=== PATIENT | female | born 1955 | race Caucasian/White ===

== ENCOUNTER 2020-12-24 14:46 | Emergency (ER) | payer MEDICARE, OTHER, SELFPAY ==
--- NOTE | ~2020-12-24 | CT_ITS ---
EXAMINATION: CT abdomen pelvis w con EXAM DATE: 12/24/2020 19:11 INDICATION: Abdominal pain, possible Crohn's flareup. Nausea vomiting and diarrhea. TECHNIQUE: Spiral CT of the abdomen and pelvis was performed following intravenous injection of 100 m L Omnipaque 350. Axial, coronal and sagittal images of the abdomen and pelvis were reviewed. The do se-length product (DLP) for this examination was 586.76 mGy-cm. The exposure was tailored according to patient size (auto mA exposure control), and iterative reconstruction (ASIR) was used as additiona l dose reduction technique. There is no prior study for comparison. FINDINGS: The liver, spleen, adrenal glands and pancreas are unremarkable. Gallbladder is unremarkab le. No biliary obstruction. Portal and splenic veins are patent. Kidneys enhance symmetrically. T here is no hydronephrosis. The uterus is anteverted and morphologically normal. The bladder is un remarkable. There is no retroperitoneal or pelvic lymphadenopathy. There are no findings to suggest appendicitis. There is mild to moderate sigmoid colonic diverticulos is. There is no adjacent inflammatory change to suggest diverticulitis. There is small sliding gastr oesophageal hiatal hernia. There is expected amount of colonic stool. No free intraperitoneal gas. The heart is normal in size. There are no pericardial or pleural effusions. The lung bases are u nremarkable. There are no osteoblastic or osteolytic lesions identified. IMPRESSION: 1. No acute intra-abdominal findings. 2. Sigmoid diverticulosis. 3. Small hiatal hernia. Reviewed, dictated and finalized at location A.
--- NOTE | ~2020-12-24 | CT_ITS ---
EXAMINATION: CT brain wo con EXAM DATE: 12/24/2020 19:11 INDICATION: Dizziness. TECHNIQUE: Spiral CT of the head was performed without contrast. Axial, coronal and sagittal images were reviewed. The dose-length product (DLP) for this examination was 586.76 mGy-cm. The exposure w as tailored according to patient size, and iterative reconstruction (ASIR) was used as additional dos e reduction technique. There is no prior study for comparison. FINDINGS: There is no acute intraparenchymal hemorrhage. No evidence of intraparenchymal brain mass lesion. No evidence of acute infarction. Please note that initial head CT has limited sensitivity f or small or acute infarctions. There is mild periventricular and subcortical hypodensity, nonspecific but probably related to small vessel ischemic disease. There is mild prominence of the sulci and v entricles related to cerebral atrophy. There is intracranial carotid arteriosclerosis. There are n o extra-axial collections. There is no mass effect or midline shift. The orbits are unremarkable. Soft tissue is unremarkable. The visualized sinuses and mastoid air cells are well aerated. IMPRESSION: 1. No acute intracranial findings. 2. Chronic age related findings. Reviewed, dictated and finalized at location A.
[2020-12-24 16:03] VITALS: BP 158/75; PULSE 82; RESP 16; TEMP 36.1; O2SAT 97
[2020-12-24 16:25] LABS: Basophils Absolute Auto 0.1 K/mm3 (0.0-0.1); Basophils Percent Auto 0.7 % (0.2-1.2); Eosinophils Absolute Auto 0.3 K/mm3 (0-0.3); Eosinophils Percent Auto 2.9 % (0-4.4); Hematocrit 41.9 % (37.0-47.0); Hemoglobin 14.3 g/dL (12.0-15.0); Immature Granulocyte Absolute 0.03 K/mm3 (0.00-0.031); Immature Granulocyte Percent A 0.4 % (0-0.5); Lymphocytes Absolute Auto 1.54 K/mm3 (0.9-3.2); Lymphocytes Percent Auto 18.1 % (18.3-44.2); Mean Corpuscular HGB Conc 34.1 g/dl (32-36); Mean Corpuscular Hemoglobin 27.1 pg (26-34); Mean Corpuscular Volume 79.5 fl (80-100); Mean Platelet Volume 9.7 fl (7.4-10.4); Monocytes Absolute Auto 1.3 K/mm3 (0.1-0.6); Neutrophils Absolute Auto 5.4 K/mm3 (1.3-6.7); Neutrophils Percent Auto 62.9 % (45.5-73.1); Platelet Count Result 334 k/mm3 (150-375); Red Blood Count 5.27 M/mm3 (4.2-5.4); White Blood Count 8.5 K/mm3 (4.5-10.0)
[2020-12-24 16:36] LABS: Alanine Aminotransferase 24 U/L (4-35); Albumin Level 4.6 g/dL (3.5-5.1); Alkaline Phosphatase 103 U/L (38-126); Anion Gap 14 mmol/L (8-16); Aspartate Amino Transferase 38 U/L (14-36); Bilirubin,Total 0.7 mg/dL (0.2-1.3); Blood Urea Nitrogen 14 mg/dL (7-17); Calcium 9.7 mg/dL (8.4-10.2); Carbon Dioxide 20 mmol/L (22-30); Chloride 95 mmol/L (98-107); Estimated CRCL calculation 38 ml/min; Estimated Glomerular Filt Rate 45; Glucose 151 mg/dL (65-110); Lipase 186 U/L (23-300); Potassium 3.7 mmol/L (3.4-5.0); Sodium 129 mmol/L (137-145)
[2020-12-24 17:53] VITALS: BP 136/94; PULSE 69; RESP 15; O2SAT 98
[2020-12-24 17:56] VITALS: BP 136/94; PULSE 68; RESP 15; O2SAT 97
--- NOTE | 2020-12-24 18:23 | ED.GENADULT ---
HPI - General Adult General Chief complaint: Nausea/Vomiting/Diarrhea Stated complaint: vomiting and diarrhea x 5 days Time Seen by Provider: 12/24/20 18:09 Source: patient and RN notes reviewed Mode of arrival: ambulatory Limitations: no limitations History of Present Illness HPI narrative: Patient is a 65-year-old female who presents to emergency department for evaluation of dizziness for the last 5 days started with the posterior headache no she has since had continued dizziness worse with moving her head from left to right. Patient states she also began to have nausea vomiting and diarrhea during this.. Patient notes history of Crohn's. Patient denies any rectal bleeding melena hematemesis fever. Patient on arrival to emergency department in no distress. Patient took Imodium today which has helped with her loose stools Related Data Home Medications Medication Instructions Recorded Confirmed fluoxetine 40 mg PO DAILY 06/18/19 06/18/19 levothyroxine 50 mcg PO DAILY 06/18/19 06/18/19 omeprazole 40 mg PO DAILY 06/18/19 06/18/19 Allergies Allergy/AdvReac Type Severity Reaction Status Date / Time codeine Allergy Severe Other Verified 12/24/20 17:50 morphine Allergy Severe Other Verified 12/24/20 17:50 Review of Systems Review of Systems: All systems reviewed & are unremarkable except as noted in HPI and below PMFSH Past Medical History Medical History Anxiety Depression Diabetes type 2, controlled GERD (gastroesophageal reflux disease) Hypothyroidism SLE (systemic lupus erythematosus related syndrome) Surgical History Surgical History History of appendectomy History of Exam Narrative: Exam Narrative: GENERAL: Well-appearing, well-nourished, and in no acute distress. HEAD: Normocephalic, atraumatic. EYES: PERRLA and EOMI. ENT: Nares clear, no rhinorrhea or epistaxis. Mucous membranes moist. Bilateral TMs nonbulging nonerythematous CHEST: Clear to auscultation. No respiratory distress. No wheezes rales or rhonchi HEART: Regular rate and rhythm. No murmur heard. Normal peripheral pulses. ABDOMEN: Soft, nontender, nondistended EXTREMITIES: Normal range of motion. No edema. SKIN: Warm, dry, no rash. NEURO: No focal deficits. Alert and oriented x3. Cranial nerves II through XII grossly intact PSYCH: Normal mood and affect. Course Course Emergency Course: Patient in the room in no distress aware of case findings treatment plan and diagnosis agreeing to follow-up as instructed with primary care no high risk changes in evaluation tolerating p.o. intake was given IV antibiotic will be treated for urinary tract infection patient agreeing with this plan hemodynamically stable ABCs and vital signs intact and stable hydrated and given IV antibiotics prior to discharge Vital Signs Vital signs: Vital Signs Temperature 96.9 F L 12/24/20 16:03 Pulse Rate 82 12/24/20 16:03 Respiratory Rate 16 12/24/20 16:03 Blood Pressure 158/75 H 12/24/20 16:03 Pulse Oximetry 97 12/24/20 16:03 Temperature 96.9 F L 12/24/20 16:03 Pulse Rate 64 12/24/20 19:23 Respiratory Rate 16 12/24/20 19:23 Blood Pressure 136/100 H 12/24/20 19:23 Pulse Oximetry 100 12/24/20 19:23 Medical Decision Making MDM Narrative Medical decision making narrative: Patient in the room no distress patient with resolved nausea and vomiting will be discharged at this time has been hydrated and is felt appropriate for discharge home Vital Signs Vital Signs: Vital Signs Temperature 96.9 F L 12/24/20 16:03 Pulse Rate 82 12/24/20 16:03 Respiratory Rate 16 12/24/20 16:03 Blood Pressure 158/75 H 12/24/20 16:03 Pulse Oximetry 97 12/24/20 16:03 Temperature 96.9 F L 12/24/20 16:03 Pulse Rate 64 12/24/20 19:23 Respiratory Rate 16 12/24/20 19:23 Blood Pressure 136/100 H 12/24/20 19:23
[2020-12-24] MEDS: SODIUM CHLORIDE 0.9% IV 1,000 ML 999 ML IV CONT (18:41)
[2020-12-24] MEDS: ONDANSETRON INJ 4 MG/2 ML VIAL IV PUSH (18:41)
[2020-12-24] MEDS: FAMOTIDINE 20 MG/2 ML VIAL IV PUSH (18:41)
[2020-12-24 19:03] LABS: Add Urine Microscopic? YES; Appearance Urine Cloudy (Clear); Bacteria Urine Trace /hpf; Bilirubin Urine Negative (Negative); Blood Urine Negative (Negative); Color Urine Amber (Yellow); Glucose Urine UA Negative (Negative); Hyaline Casts Urine 15-19 /lpf; Ketones Urine Negative (Negative); Leukocyte Esterase Ur 3+ LEU/UL (Negative); Mucus Urine Few /lpf; Nitrate Urine Positive (Negative); Protein Urine 2+ mg/dL (Negative); Specific Grav Ur 1.023 (1.001-1.035); Squamous Epithelial Cell Urine Occasional /hpf (Few); Urobilinogen Urine Negative mg/dL (<2.0); WBC Urine >75 /hpf
--- NOTE | 2020-12-24 19:05 | PC.NURSE ---
Pt report to [facility] at this time, pt in ct, all questions answered, she has assumed pt care.
[2020-12-24 19:23] VITALS: BP 136/100; PULSE 64; RESP 16; O2SAT 100
--- NOTE | 2020-12-24 19:29 | PC.NURSE ---
updated pt and family member. antibiotics started. no other requests at this time. pt is resting w/ call light in reach.
[2020-12-24 20:20] VITALS: BP 151/88; PULSE 63; RESP 15; O2SAT 98
== END 2020-12-24 20:20 | disposition home or self-care (01) ==
PROVIDERS: Emergency Medicine; Emergency Provider Emergency Medicine; PCP Physician Assistant
DX: N39.0 Urinary tract infection, site not specified (principal); R10.9 Unspecified abdominal pain; K57.30 Diverticulosis of large intestine without perforation or abscess without bleeding; K44.9 Diaphragmatic hernia without obstruction or gangrene; F41.9 Anxiety disorder, unspecified; F32.9 Major depressive disorder, single episode, unspecified; E11.9 Type 2 diabetes mellitus without complications; K21.9 Gastro-esophageal reflux disease without esophagitis; E03.9 Hypothyroidism, unspecified; M32.9 Systemic lupus erythematosus, unspecified
CPT/HCPCS: 36415; 70450; 74177; 80053; 81001; 83690; 85025; 87077; 87086; 87088; 87186; 96365; 96367; 96375; 99284; J0131; J0696; J2405; J7030; Q9967

== ENCOUNTER 2024-02-29 09:04 | Inpatient (IN) | payer MEDICARE, OTHER, SELFPAY ==
[2024-02-29] VITALS (20 sets, daily range): BP systolic 110–193; BP diastolic 64–110; PULSE 61–105; RESP 13–21; TEMP 36.4–36.9; O2SAT 97–100; BMI 26.6
--- NOTE | 2024-02-29 | ECHO_ITS ---
Patient Info Name: Sharmila Vences Age: 68 years : 1955 Gender: Female Ht: 66 in Wt: 165 lbs BSA: 1.88 m2 HR: 81 bpm BP: 178 / 87 mmHg Heart Rhythm: Sinus Rhythm Technical Quality: Fair Exam Date: 02/29/2024 2:36 PM Exam Location: Echo Lab Patient Status: Inpatient Admit Date: 02/29/2024 Staff Ordering Physician: Allan Hall MD (brandon/tejal) Tung Nut Grower: Melissa Luz RDCS Attending Provider: Allan Hall MD (brandon/tejal) Referring Physician: Rafael GLASS; Exam Type: CA echo dop color flow w con Study Info Indications I21.3 - ST elevation (STEMI) myocardial infarction of unspecified site Complete two-dimensional, color flow and Doppler transthoracic echocardiogram is performed with contrast to opacify the left ventricle and to improve the deliniation of the left ventricle endocardial borders. Contrast/Agitated Saline Contrast/Ag. Saline: Definity Amount: 2.00 ml IV Access Condition: patent with no signs of infiltration Summary 1. Left ventricular chamber dimension is mildly enlarged. 2. Left ventricular systolic function is moderately reduced, estimated at 30-35%. 3. There is mildly increased left ventricular wall thickness. 4. The left ventricular diastolic function is grade I diastolic dysfunction. 5. Right ventricular systolic function is normal. 6. Left atrial chamber dimension is moderately enlarged. 7. There is mild aortic valve regurgitation. 8. There is mild mitral valve regurgitation. 9. There is mild tricuspid valve regurgitation. Left Ventricle Left ventricular chamber dimension is mildly enlarged. Left ventricular systolic function is moderately reduced, estimated at 30-35%. There is mildly increased left ventricular wall thickness. The left ventricular diastolic function is grade I diastolic dysfunction. Right Ventricle Right ventricular chamber dimension is normal. Right ventricular systolic function is normal. Left Atria Left atrial chamber dimension is moderately enlarged. Right Atria Right atrial chamber dimension is normal. Atrial Septum Intact interatrial septum visualized by color flow imaging. Aortic Valve The aortic valve is not well visualized. There is no aortic valve stenosis. There is mild aortic valve regurgitation. There is mild aortic valve calcification. Pulmonic Valve The pulmonic valve is not well visualized. There is trace pulmonic regurgitation. Mitral Valve There is mild mitral valve regurgitation. Tricuspid Valve There is mild tricuspid valve regurgitation. Pericardium/Pleural There is no pericardial effusion. Inferior Vena Cava Normal inferior vena cava with >50% collapse upon inspiration consistent with normal right atrial pressure, 3 mmHg. Aorta The aortic root size at the sinus of Valsalva is normal. Left Ventricular Outflow Tract Name Value Normal LVOT 2D LVOT Diameter 1.94 cm LVOT Doppler LVOT Peak Gradient 2 mmHg LVOT Mean Gradient 1 mmHg LVOT VTI 15.12 cm LVOT VTI/AV VTI Ratio 0.76 LVOT Stroke Volume 44.85 ml LVOT CO 3.19 l/min LVOT CI 1.69 L/min/m2 Pulmonic Valve Name Value Normal PV Doppler PV Peak Gradient 2 mmHg PV Regurgitation Doppler AL Peak End Diastolic Velocity 152.13 cm/s Mitral Valve Name Value Normal MV Doppler MV Decel Bland 303.95 cm/s2 MV PHT 0 s MV Area (PHT) 4.02 cm2 4.00-5.00 MV Diastolic Function MV E Peak Velocity 57.38 cm/s MV A Peak Velocity 88.69 cm/s MV E/A 0.65 MV Decel Time 0 s Tricuspid Valve Name Value Normal TV Regurgitation Doppler TR Peak Velocity 280.73 cm/s TR Peak Gradient 32 mmHg Estimated PAP/RSVP RA Pressure 3 mmHg <=5 PA Systolic Pressure 35 mmHg <36 RV Systolic Pressure 35 mmHg <36 Aorta Name Value Normal Ascending Aorta Ao Root Diameter (MM) 2.59 cm Ao Root Diam Index (MM) 1.38 cm/m2 Aortic Valve Name Value Normal AV Doppler AV Peak Velocity 111.70 cm/s AV Peak Gradient 5 mmHg AV Mean Gradient 3 mmHg AV VTI 19.84 cm AV Area (Cont Eq VTI) 2.26 cm2 >=3.00 AV Area (Cont Eq Dave) 2.00 cm2 AV Regurgitation 2D LVOT Area 2.97 cm2 AV Regurgitation Doppler AR Decel Time 3 s AR Decel Bland 110.01 cm/s2 AR PHT 1 s Ventricles Name Value Normal LV Dimensions 2D/MM IVS Diastolic Thickness (2D) 1.12 cm 0.60-1.00 IVS Diastole Thickness (MM) 1.30 cm 0.60-0.90 LVID Diastole (2D) 5.18 cm 3.80-5.20 LVID Diastole (MM) 6.17 cm 3.80-5.20 LVIW Diastolic Thickness (2D) 1.25 cm 0.60-0.90 LVIW Diastolic Thickness (MM) 1.30 cm 0.60-0.90 LVID Systole (2D) 4.41 cm 2.20-3.50 LVID Systole (MM) 4.64 cm 2.20-3.50 LVOT Diameter 1.94 cm LV Mass (2D Cubed) 243.58 g 67.00-162.00 LV Mass Index (2D Cubed) 0.01 g/cm2 0.00-0.01 Relative Wall Thickness (2D) 0.48 LV Mass (MM Cubed) 365.28 g 67.00-162.00 LV Mass Index (MM Cubed) 0.02 g/cm2 0.00-0.01 Relative Wall Thickness (MM) 0.42 LV Fractional Shortening/Ejection Fraction 2D/MM LV Fractional Shortening (2D) 15 % 27-45 LV Fractional Shortening (MM) 25 % 27-45 LV EF (MM Teicholz) 48 % 54-74 LV EF (2D Teicholz) 31 % 54-74 LV Diastolic Volume (4C MOD) 163.13 ml LV EF (4C MOD) 31 % LV Diastolic Volume (2C MOD) 140.79 ml LV EF (2C MOD) 41 % LV Diastolic Volume (BP MOD) 153.95 ml 46.00-106.00 LV Diastolic Volume Index (BP MOD) 0.08 l/m2 0.03-0.06 LV Systolic Volume (BP MOD) 100.78 ml 14.00-42.00 LV Systolic Volume Index (BP MOD) 0.05 l/m2 0.01-0.02 LV EF (BP MOD) 35 % 54-74 LV Diastolic Length (4C) 9.13 cm LV Systolic Length (4C) 8.19 cm LV Stroke Volume (4C MOD) 49.76 ml Atria Name Value Normal LA Dimensions LA Dimension (MM) 4.41 cm 2.70-3.80 LA Volume (4C A-L) 55.88 ml LA Volume (BP A-L) 59.72 ml RA Dimensions RA Area (4C) 11.19 cm2 <=18.00 Report Signatures
--- NOTE | ~2024-02-29 | US_ITS ---
EXAMINATION: US renal BI DATE: 03/01/2024 13:29 INDICATION: Acute renal insufficiency TECHNIQUE: Multiple ultrasound grayscale images of the kidneys were obtained. COMPARISON: None. FINDINGS: The right kidney measures 8.0 x 4.6 x 4.6 cm. The left kidney measures 8.7 x 5.1 x 3.8 cm. The kidney s demonstrate normal echogenicity. There is no hydronephrosis in either kidney. No stones identified . The bladder is nonvisualized, likely decompressed. IMPRESSION: 1. Normal kidneys without hydronephrosis. Reviewed, dictated and finalized at location A.
--- NOTE | ~2024-02-29 | XR_ITS ---
EXAMINATION: XR chest 1V portable DATE: 02/29/2024 11:43 INDICATION: Shortness of breath TECHNIQUE: frontal view of the chest was obtained. COMPARISON: None FINDINGS: There is diffuse increased initial pattern throughout both lungs including peripheral Tj B-lines consistent with mild pulmonary edema. No pleural effusion or pneumothorax. The cardiomediastinal silh ouette is normal. IMPRESSION: 1. Diffuse mild increased initial pattern consistent with mild pulmonary edema. Reviewed, dictated and finalized at location A.
--- NOTE | 2024-02-29 09:11 | ECG_ITS ---
Test Date: 2024-02-29 09:10:43 Measurements Intervals [place] Rate: 94 P: 63 SC: 216 QRS: 30 QRSD: 149 T: 84 QT: 377 QTc: 472 Interpretive Statements SINUS RHYTHM WITH FIRST DEGREE AV BLOCK POSSIBLE LEFT ATRIAL ENLARGEMENT INTRAVENTRICULAR CONDUCTION DELAY INFERIOR ST ELEVATION MYOCARDIAL INFARCT- ACUTE WITH RECIPROCAL ST DEPRESSION IN HIGH LATERAL LEADS ABNORMAL ECG No previous ECG available for comparison Electronically Signed On 02-29-2024 09:16:45 CDT by Gonzalo Plascencia D.O.
--- NOTE | 2024-02-29 09:20 | ED.GENADULT ---
HPI - General Adult General Chief complaint: Chest Pain Stated complaint: Chest pain/SOB Time Seen by Provider: 02/29/24 09:18 History of Present Illness HPI narrative: This is 68-year-old female presenting ED with chief complaint of chest pain. She has been having intermittent burning pains in the center of her chest for the last 2 weeks. She is so sedated heartburn. At 3:00 a.m. it woke her from sleep and became severe. It is radiating to her jaw. Not associated with exertion diaphoresis nausea or vomiting. No history of OR. patient's hypertension/high cholesterol Related Data Home Medications Medication Instructions Recorded Confirmed levothyroxine 50 mcg tablet 50 mcg PO DAILY 06/18/19 06/18/19 omeprazole 40 mg capsule,delayed 40 mg PO DAILY 06/18/19 06/18/19 release Allergies Allergy/AdvReac Type Severity Reaction Status Date / Time morphine Allergy Severe Other Verified 08/03/23 11:59 codeine Allergy Intermediate Chest Pain Verified 08/03/23 11:59 [facility] Past Medical History Medical History Anxiety Chronic back pain Depression Diabetes type 2, controlled Erosive esophagitis Fibromyalgia GERD (gastroesophageal reflux disease) Hyperlipidemia Hypertension Hypothyroidism Hypothyroidism Irritable bowel syndrome Major depressive disorder Osteoarthritis SLE (systemic lupus erythematosus related syndrome) Type 2 diabetes mellitus without complications Surgical History Surgical History History of abdominal surgery adhesion removal 1979 History of appendectomy History of History of section 1980, 1987 History of foot surgery fallen arch repair left 1972 Hx of varicose vein stripping around uterus Family History Family History Father Hypertension Diabetes mellitus Acute myocardial infarction Cerebrovascular accident Mother Heart disease Acute myocardial infarction Grandparent No problems noted. Social History Social History Smoking status: Never smoker Alcohol intake: never Substance use: never Substance use type: does not use Lack of Transportation: No Lack of Food: Never True Current Housing: I Have Housing Concerned About Future Housing: No Difficulty Paying for Meds: No Currently Unemployed: No Education: Associate Degree Difficulty w/ Childcare or Family Care: No Living arrangements: with family Occupation/Education: occupation Gender identity (if verbalized by the patient): Female Sexual Orientation (if Verbalized by the Patient): Straight or Heterosexual Exam Narrative: APPEARANCE: Appears uncomfortable Head: atraumatic. EYES: EOMI, NOSE: Atraumatic NECK: Trachea midline RESPIRATORY: No increased rate of breathing clear to auscultation CARDIOVASCULAR: RRR, no peripheral edema ABDOMINAL: Non-distended soft nontender MUSCULOSKELETAl: No obvious deformities NEURO: Alert. Moving 4/4 extremities SKIN:: Warm, dry. Normal color PSYCHIATRIC: Normal affect Course Vital Signs Vital signs: Vital Signs Temperature 97.6 F 02/29/24 09:07 Pulse Rate 94 02/29/24 09:07 Respiratory Rate 18 02/29/24 09:07 Blood Pressure 193/99 H 02/29/24 09:07 Pulse Oximetry 98 02/29/24 09:07 Oxygen Delivery Room Air 02/29/24 09:07 Temperature 97.6 F 02/29/24 09:07 Pulse Rate 95 02/29/24 09:15 Respiratory Rate 18 02/29/24 09:07 Blood Pressure 193/99 H 02/29/24 09:07 Pulse Oximetry 98 02/29/24 09:18 Oxygen Delivery Room Air 02/29/24 09:18 Medical Decision Making MDM Narrative Medical decision making narrative: -Course: 68-year-old female presenting with chest pain. EKG shows inferior STEMI. Patient given aspirin Brilinta and heparin. Dr. Hall was contacted patient will go to the research laboratory technician for cardiac catheterization. Independent EKG interpretation: Rhythm [sinus], Rate 94 , [place] -[normal], [place] -[normal], QRS [narrow], QTC [normal], T waves -[negative for concerning inversions], ST Segments -ST elevations in 2 3 AVF Final interpretations: Inferior STEMI with reciprocal changes in the lateral Vital Signs Vital Signs: Vital Signs Temperature 97.6 F 02/29/24 09:07 Pulse Rate 94 02/29/24 09:07 Respiratory Rate 18 02/29/24 09:07 Blood Pressure 193/99 H 02/29/24 09:07 Pulse Oximetry 98 02/29/24 09:07 Oxygen Delivery Room Air 02/29/24 09:07 Temperature 97.6 F 02/29/24 09:07 Pulse Rate 95 02/29/24 09:15 Respiratory Rate 18 02/29/24 09:07 Blood Pressure 193/99 H 02/29/24 09:07 Pulse Oximetry 98 02/29/24 09:18 Oxygen Delivery Room Air 02/29/24 09:18 Critical Care Time Critical Care Time Critical Care Time: Yes Total Critical Care Time: 10 Discharge Plan Discharge Clinical Impression: ST elevation OR (STEMI) Patient Disposition: Still a Patient Condition: Stable Prescriptions: No Action ezetimibe 10 mg tablet 10 mg PO DAILY Qty: 90 0RF fluoxetine 40 mg capsule 40 mg PO DAILY Qty: 90 0RF losartan-hydrochlorothiazide 100-12.5 mg tablet 1 tablet PO DAILY Qty: 30 2RF omeprazole 40 mg capsule,delayed release(DR/EC) 40 mg PO DAILY levothyroxine 50 mcg tablet 50 mcg PO DAILY famotidine [Pepcid] 20 mg tablet 20 mg PO BID Qty: 14 0RF ondansetron 4 mg tablet,disintegrating 4 mg PO Q8H PRN (Reason: nausea and vomiting) Qty: 7 0RF hyoscyamine sulfate [Levsin] 0.125 mg tablet 0.125 mg PO QID Qty: 7 0RF cephalexin 500 mg capsule 500 mg PO Q8H 10 Days Qty: 30 0RF levothyroxine 75 mcg tablet See Rx Instructions .ROUTE .COMPLEX Qty: 90 6RF Dose Instruction: TAKE 1 TABLET BY MOUTH EVERY DAY IN THE MORNING ON AN EMPTY STOMACH Rx Instructions: TAKE 1 TABLET BY MOUTH EVERY DAY IN THE MORNING ON AN EMPTY STOMACH fluoxetine 40 mg capsule 40 mg PO DAILY Qty: 90 1RF omeprazole 40 mg capsule,delayed release(DR/EC) 40 mg PO DAILY 90 Days Qty: 90 3RF Follow-up/Referrals: Jovi Mendiola MD [Primary Care Provider] -
[2024-02-29] MEDS: HEPARIN SODIUM 5,000 UNITS/ML VIAL 4000 UNITS IV PUSH (09:24)
[2024-02-29] MEDS: ASPIRIN 81 MG CHEWABLE TABLET 324 MG PO (09:24)
[2024-02-29] MEDS: TICAGRELOR 90 MG TABLET 180 MG PO (09:25)
--- NOTE | 2024-02-29 09:25 | PM.IMHP ---
H&P: HPI History of Present Illness Date/Time: 02/29/24 09:25 Chief Complaint: Chest pain Narrative: Sharmila is a 68 year old female with hypertension, hyperlipidemia, hypothyroidism who presented to [place] ER with chest pain. Has been having intermittent chest pain over the past two weeks. Chest pain began at 3AM and was severe, radiating to jaw. In the ED, EKG shows inferior STEMI. phlebotomist medical lab assistant activated. Review of Systems Review of Systems: All systems reviewed & are unremarkable except as noted in HPI and below (HPI) [facility] Past Medical History Medical History (Updated 02/29/24 @ 09:28 by Allan Hall MD) Anxiety Chronic back pain Depression Diabetes type 2, controlled Erosive esophagitis Fibromyalgia GERD (gastroesophageal reflux disease) Hyperlipidemia Hypertension Hypothyroidism Hypothyroidism Irritable bowel syndrome Major depressive disorder Osteoarthritis SLE (systemic lupus erythematosus related syndrome) Type 2 diabetes mellitus without complications Surgical History Surgical History History of abdominal surgery adhesion removal 1979 History of appendectomy History of History of section 1980, 1987 History of foot surgery fallen arch repair left 1972 Hx of varicose vein stripping around uterus Family History Family History Father Hypertension Diabetes mellitus Acute myocardial infarction Cerebrovascular accident Mother Heart disease Acute myocardial infarction Grandparent No problems noted. Social History Social History Smoking status: Never smoker Alcohol intake: never Substance use: never Substance use type: does not use Lack of Transportation: No Lack of Food: Never True Current Housing: I Have Housing Concerned About Future Housing: No Difficulty Paying for Meds: No Currently Unemployed: No Education: Associate Degree Difficulty w/ Childcare or Family Care: No Living arrangements: with family Occupation/Education: occupation Gender identity (if verbalized by the patient): Female Sexual Orientation (if Verbalized by the Patient): Straight or Heterosexual Meds Home Medications and Allergies Home Medications Medication Instructions Recorded Confirmed Type levothyroxine 50 mcg tablet 50 mcg PO DAILY 06/18/19 06/18/19 History omeprazole 40 mg capsule,delayed 40 mg PO DAILY 06/18/19 06/18/19 History release cephalexin 500 mg capsule 500 mg PO Q8H 10 days #30 caps 12/24/20 Rx famotidine 20 mg tablet (Pepcid) 20 mg PO BID #14 tabs 12/24/20 Rx hyoscyamine sulfate 0.125 mg 0.125 mg PO QID #7 tabs 12/24/20 Rx tablet (Levsin) ondansetron 4 mg disintegrating 4 mg PO Q8H PRN nausea and 12/24/20 Rx tablet vomiting #7 tabs ezetimibe 10 mg tablet 10 mg PO DAILY #90 tabs 12/31/22 12/31/22 Rx fluoxetine 40 mg capsule 40 mg PO DAILY #90 caps 12/31/22 12/31/22 Rx losartan 100 1 tablet PO DAILY #30 tabs 12/31/22 12/31/22 Rx mg-hydrochlorothiazide 12.5 mg tablet levothyroxine 75 mcg tablet See Rx Instructions .Route 08/28/23 Rx .COMPLEX #90 tabs fluoxetine 40 mg capsule 40 mg PO DAILY #90 caps 10/28/23 Rx omeprazole 40 mg capsule,delayed 40 mg PO DAILY 90 days #90 caps 01/26/24 Rx release Allergies Allergy/AdvReac Type Severity Reaction Status Date / Time morphine Allergy Severe Other Verified 08/03/23 11:59 codeine Allergy Intermediate Chest Pain Verified 08/03/23 11:59 Vital Signs Vital Signs - 24 hr 02/29/24 09:07 02/29/24 09:15 02/29/24 09:18 Temperature 36.4 C Pulse Rate 94 95 Respiratory Rate 18 Blood Pressure 193/99 H Pulse Oximetry 98 98 Oxygen Delivery Room Air Room Air 02/29/24 09:22 Temperature Pulse Rate 105 H Respiratory Rate 19 Blood Pressure Pulse Oximetry 97 Oxygen Delivery Exam Const: General: in distress mild Eyes: General: appearance normal, both eyes and all related structures Sclera: sclerae normal Resp: Effort & Inspection: normal respiratory effort Cardio: Rate: regular rate Rhythm: regular rhythm Skin: General skin exam: normal color Neuro: Speech: normal speech Psych: Mental Status: mental status grossly normal Affect: normal affect Assessment and Plan Assessment and plan (1) ST elevation AR (STEMI): Code(s): I21.3 - ST elevation (STEMI) myocardial infarction of unspecified site Status: Acute Assessment and Plan: Will proceed with emergent cardiac catheterization. Given ASA 324mg x 1 in the ED along with Brilinta 180mg x 1. (2) Hypertension: Code(s): I10 - Essential (primary) hypertension Status: Acute Assessment and Plan: Blood pressure elevated, will re-evaluate after emergent cardiac catheterization. On Losartan-HCTZ at home. (3) Hyperlipidemia: Code(s): E78.5 - Hyperlipidemia, unspecified Status: Acute Assessment and Plan: Will start high intensity statin. On Zetia at home.
[2024-02-29 09:29] LABS: Basophils Absolute Auto 0.1 K/mm3 (0.0-0.1); Basophils Percent Auto 1.2 % (0.2-1.2); Eosinophils Absolute Auto 0.4 K/mm3 (0-0.3); Hematocrit 34.2 % (37.0-47.0); Hemoglobin 11.3 g/dL (12.0-15.0); Immature Granulocyte Absolute 0.03 K/mm3 (0.00-0.031); Immature Granulocyte Percent A 0.3 % (0-0.5); Lymphocytes Absolute Auto 1.52 K/mm3 (0.9-3.2); Lymphocytes Percent Auto 16.4 % (18.3-44.2); Mean Corpuscular Volume 84.9 fl (80-100); Mean Platelet Volume 9.8 fl (7.4-10.4); Monocytes Absolute Auto 0.8 K/mm3 (0.1-0.6); Monocytes Percent Auto 9.1 % (2.6-8.5); Neutrophils Absolute Auto 6.4 K/mm3 (1.3-6.7); Platelet Count Result 356 k/mm3 (150-375); Red Blood Count 4.03 M/mm3 (4.2-5.4); Red Cell Distribution Width 13.1 % (11.5-14.5); White Blood Count 9.3 K/mm3 (4.5-10.0)
--- NOTE | 2024-02-29 09:30 | P.SEDATION_ITS ---
Moderate Sedation Note-Pt Data Patient Data Diagnosis: Inferior STEMI Present Complaint: Chest pain Procedure to be performed/Plan: Primary PCI Allergies Allergy/AdvReac Type Severity Reaction Status Date / Time morphine Allergy Severe Other Verified 08/03/23 11:59 codeine Allergy Intermediate Chest Pain Verified 08/03/23 11:59 Home Medications Medication Instructions Recorded Confirmed Type levothyroxine 50 mcg tablet 50 mcg PO DAILY 06/18/19 06/18/19 History omeprazole 40 mg capsule,delayed 40 mg PO DAILY 06/18/19 06/18/19 History release cephalexin 500 mg capsule 500 mg PO Q8H 10 days #30 caps 12/24/20 Rx famotidine 20 mg tablet (Pepcid) 20 mg PO BID #14 tabs 12/24/20 Rx hyoscyamine sulfate 0.125 mg 0.125 mg PO QID #7 tabs 12/24/20 Rx tablet (Levsin) ondansetron 4 mg disintegrating 4 mg PO Q8H PRN nausea and 12/24/20 Rx tablet vomiting #7 tabs ezetimibe 10 mg tablet 10 mg PO DAILY #90 tabs 12/31/22 12/31/22 Rx fluoxetine 40 mg capsule 40 mg PO DAILY #90 caps 12/31/22 12/31/22 Rx losartan 100 1 tablet PO DAILY #30 tabs 12/31/22 12/31/22 Rx mg-hydrochlorothiazide 12.5 mg tablet levothyroxine 75 mcg tablet See Rx Instructions .Route 08/28/23 Rx .COMPLEX #90 tabs fluoxetine 40 mg capsule 40 mg PO DAILY #90 caps 10/28/23 Rx omeprazole 40 mg capsule,delayed 40 mg PO DAILY 90 days #90 caps 01/26/24 Rx release Current Medications: Active Medications Heparin Sodium (Porcine) (Heparin Sodium 5,000 Units/Ml Vial) 4,000 units IV PUSH PRN PRN PRN Reason: aPTT less than 55 seconds Heparin Sodium (Porcine) (Heparin Sodium 5,000 Units/Ml Vial) 2,500 units IV PUSH PRN PRN PRN Reason: aPTT 55 - 70 seconds Heparin Sodium/Dextrose (Heparin Sodium/D5w 100 Units/Ml) 25,000 units in 250 mls @ 8 mls/hr IV CONT .Q24H APPLE; Protocol Sedation/Anesthesia: No previous sedation/anesthesia problems (including family history). [facility] Past Medical History Medical History Anxiety Chronic back pain Depression Diabetes type 2, controlled Erosive esophagitis Fibromyalgia GERD (gastroesophageal reflux disease) Hyperlipidemia Hypertension Hypothyroidism Hypothyroidism Irritable bowel syndrome Major depressive disorder Osteoarthritis SLE (systemic lupus erythematosus related syndrome) Type 2 diabetes mellitus without complications Surgical History Surgical History History of abdominal surgery adhesion removal 1979 History of appendectomy History of History of section 1980, 1987 History of foot surgery fallen arch repair left 1972 Hx of varicose vein stripping around uterus Family History Family History Father Hypertension Diabetes mellitus Acute myocardial infarction Cerebrovascular accident Mother Heart disease Acute myocardial infarction Grandparent No problems noted. Social History Social History Smoking status: Never smoker Alcohol intake: never Substance use: never Substance use type: does not use Lack of Transportation: No Lack of Food: Never True Current Housing: I Have Housing Concerned About Future Housing: No Difficulty Paying for Meds: No Currently Unemployed: No Education: Associate Degree Difficulty w/ Childcare or Family Care: No Living arrangements: with family Occupation/Education: occupation Gender identity (if verbalized by the patient): Female Sexual Orientation (if Verbalized by the Patient): Straight or Heterosexual Mod Sed Physical Exam Physical Exam Pre Procedural Exam: Normal: Appearance, Lungs, Heart Rate, Heart Rhythm, Neuro Exam, Extremities and Skin Hours since solid foods: 0 Hours since liquid intake: 0 Mallampati Classification: class III Internal Medicine - PN: Obj Da Vital Signs Vital Signs: Vital Signs - 24 hr 02/29/24 09:07 02/29/24 09:15 02/29/24 09:18 Temperature 36.4 C Pulse Rate 94 95 Respiratory Rate 18 Blood Pressure 193/99 H Pulse Oximetry 98 98 Oxygen Delivery Room Air Room Air 02/29/24 09:22 02/29/24 09:26 Temperature Pulse Rate 105 H 97 Respiratory Rate 19 19 Blood Pressure 174/91 H Pulse Oximetry 97 97 Oxygen Delivery Meds/Results Medications: Active Medications Generic Name Dose Route Start Last Admin Trade Name Freq PRN Reason Stop Dose Admin Heparin Sodium (Porcine) 4,000 units 02/29/24 09:18 Heparin Sodium 5,000 Units/Ml Vial IV PUSH PRN PRN aPTT less than 55 seconds Heparin Sodium (Porcine) 2,500 units 02/29/24 09:18 Heparin Sodium 5,000 Units/Ml Vial IV PUSH PRN PRN aPTT 55 - 70 seconds Heparin Sodium/Dextrose 25,000 units in 250 mls @ 8 mls/hr 02/29/24 09:20 Heparin Sodium/D5w 100 Units/Ml IV CONT .Q24H [facility] Protocol 800 UNITS/HR Labs 02/29/24 09:19 02/29/24 09:20 ASA Classification/Sedation ASA Classification/Sedation ASA Class: IV Emergent: Yes Risks: Risks, benefits and alternatives explained and patient/family accepted plan for sedation. Patient re-evaluated immediately prior to sedation.
--- NOTE | 2024-02-29 09:31 | WPDCARDPROC ---
Cardiac Cath Procedure Note Date of procedure:: 02/29/24 Performing physician:: CATHETERIZATION LABORATORY REPORT Procedure Date: 02/29/2024 Director Of Medicare: Allan Hall M.D., [facility]? Referring Physician: Isidoro Solares M.D. ([facility] Emergency Department) ? Anesthesia: Versed and Fentanyl were ordered and given in my presence at 09:45, procedure ended at 10:39. Supervision of nurse monitored moderate sedation with Versed and Fentanyl was provided for 54 minutes. Total of Versed 1mg and Fentanyl 25mcg were administered by the Electroneurodiagnostic Technologist RN Candy Fish. Pre-op Diagnosis: Inferior STEMI Post-op Diagnosis: 1. Multivessel coronary artery disease. Acute complete occlusion of the proximal RPLV (infarct-related artery) s/p successful PCI with TESSA x 1 (2.75 mm x 22 mm Orsiro TESSA, with the proximal portion of the stent post dilated to 3.0 mm). 2. Elevated left ventricular end-diastolic pressure of 36mmHg. Procedure(s): 1. Moderate sedation 2. Ultrasound-guided access of the right radial artery 3. Coronary angiography 4. Left heart cath 5. IVUS of the RPLV 6. PCI of the RPLV with TESSA x 1, with pre-dilatation and post-dilatation Access Site: Right radial artery Brief History and Clinical Indications: Patient is a 68 year old female with hypertension, hyperlipidemia, hypothyroidism who is referred for emergent cardiac catheterization for inferior STEMI. All risks, benefits and alternatives to left heart catheterization with or without percutaneous coronary intervention was discussed at length with the patient. Risk of complications including but not limited to bleeding, infection, arrhythmia, stroke, worsening kidney function, blood loss, groin hematoma, limb loss, emergency coronary artery bypass grafting, and even were discussed with the patient and all questions were answered. The patient understood and wished to proceed. Time out called, patient name, date of , medical record number, allergies, procedure performed, identify Director Of Medicare, patient and staff member concurred with accurate data, procedure carried on. Findings: LEFT HEART CATHETERIZATION FINDINGS: 1. Left main: The left main coronary artery is widely patent without any significant obstructive disease. 2. Left anterior descending: The mid portion of the LAD has a 90% stenosis followed distally by an 80% stenosis. The second diagonal branch has a 70-80% stenosis. 3. Left circumflex: The proximal LCX has an 80% stenosis. The mid portion is subtotally occluded proximal to the bifurcation of the obtuse marginal branches. 4. Right coronary artery: The RCA is the dominant vessel. The proximal and mid portions have mild diffuse disease with a 40% stenosis in the proximal portion. Shortly after the bifurcation of the distal RCA, the RPLV is 100% occluded in the proximal portion. 5. Left ventricle: A. End-diastolic pressure 36 mmHg. B. LV gram deferred. C. No significant gradient across aortic valve on catheter pullback. Description of Procedure and PCI: Patient transferred to refuse laborer room. Prepped and draped in usual sterile fashion. 2% lidocaine injected subcutaneously in right wrist area. 22-gauge venipuncture catheter used to access the right radial artery under ultrasound guidance. 6-FR slender sheath placed in right radial artery. Nitroglycerine and Verapamil were given intraarterial through the sheath. Versacore wire advanced under fluoroscopy 5F Tig 4 diagnostic catheter engaged Left Main Coronary Artery. 5F Tig 4 diagnostic catheter engaged Right Coronary Artery Multiple orthogonal angiogram obtained and reviewed Angiomax was used for anticoagulation. 6F FR 4 guide catheter was used to intubate the RCA. 0.014 [place] coronary wire was passed in to the distal RPLV. The lesion was pre-dilated with a 2.5 mm x 15 mm balloon inflated to high DENG. Multiple balloon inflations done. Intracoronary NTG was administered IVUS catheter advanced distal to the lesion, reference measurements obtained. A 2.75 mm x 22 mm Orsiro TESSA was successfully deployed into proximal RPLV. When advancing the NC balloon, the guide catheter became disengaged from the RCA and wire access was lost. The RCA was re-engaged with the same guide catheter, and the coronary wire was re-advanced to the distal RPLV. The proximal portion of the stent was post-dilated with a 3.0 mm x 8 mm NC balloon inflated to high DENG Intracoronary NTG was administered Follow-up angiograms showed an excellent result Coronary wire and guide-catheter were removed Pre-procedure - KARRIE 0 flow Post-procedure - KARRIE 3 flow No angiographic complications identified. 5F Pigtail diagnostic catheter crossed aortic valve to obtain LVEDP, LV angiogram deferred. Hemostasis was achieved by application of TR band. Disposition: ICU Plan: The patient will be admitted to the ICU. ASA 81mg once daily indefinitely. Brilinta 90mg BID. Transthoracic echocardiogram. Recommend outpatient CT Surgery consultation for consideration of surgical revascularization for her left coronary system disease. Continue aggressive medical therapy and risk factor modification. ? Allan Hall M.D. Interventional Cardiology
[2024-02-29 09:41] LABS: Prothrombin Time 13.8 Seconds (11.1-14.7)
[2024-02-29 09:42] LABS: Partial Thromboplastin Time 28.6 Seconds (22.3-36.8)
[2024-02-29 09:53] LABS: Alanine Aminotransferase 14 U/L (6-35); Albumin Level 4.3 g/dL (3.5-5.1); Alkaline Phosphatase 110 U/L (38-126); Anion Gap 12 mmol/L (4-12); Aspartate Amino Transferase 29 U/L (14-36); Bilirubin,Total 0.9 mg/dL (0.2-1.3); Blood Urea Nitrogen 21 mg/dL (7-17); Calcium 8.9 mg/dL (8.4-10.2); Carbon Dioxide 20 mmol/L (22-30); Chloride 104 mmol/L (98-107); Estimated CRCL calculation 25 ml/min; Estimated Glomerular Filt Rate 28; Glucose 167 mg/dL (65-110); Lipase 216 U/L (23-300); Potassium 4.1 mmol/L (3.4-5.0); Sodium 136 mmol/L (137-145)
[2024-02-29 10:09] LABS: Troponin I 0.889 ng/mL (0.000-0.034)
[2024-02-29 10:34] LABS: Cholesterol 258 mg/dL (0-200); HDL Direct 48 mg/dL; Triglycerides 245 mg/dL (<150)
[2024-02-29 10:45] LABS: LDL Cholesterol Direct 160 mg/dL
--- NOTE | 2024-02-29 10:59 | ADMGEN ---
This patient, Sharmila Vences, was admitted to Intensive Care Unit-2. Patient/family oriented to hospital policies and general routines including ID bracelet, bed and alarms, visiting hours, pain management, procedures, bathroom and other care routines, personal items, smoking policy, room service/diet, and visiting hours. Information on how to activate the Rapid Response Team has been discussed. Patient/Family are encouraged to report perceived risks to care and to ask questions if they do not understand what they are told or what they should do.
--- NOTE | 2024-02-29 11:07 | WPDCNINT ---
Assessment and Plan Assessment and plan (1) ST elevation ME (STEMI): Code(s): I21.3 - ST elevation (STEMI) myocardial infarction of unspecified site Status: Acute Assessment and Plan: Inferior STEMI status post cardiac catheterization and PCI 1. Multivessel coronary artery disease. Acute complete occlusion of the proximal RPLV (infarct-related artery) s/p successful PCI with TESSA x 1 (2.75 mm x 22 mm Orsiro TESSA, with the proximal portion of the stent post dilated to 3.0 mm). 2. Elevated left ventricular end-diastolic pressure of 36mmHg. Admit to ICU Telemetry and hemodynamic monitoring Check echocardiogram Aspirin, Lipitor, beta-pancho, losartan and Brilinta (2) Hypertension: Code(s): I10 - Essential (primary) hypertension Status: Acute Assessment and Plan: Patient has been started on metoprolol and losartan P.r.n. labetalol hydralazine (3) Hyperlipidemia: Code(s): E78.5 - Hyperlipidemia, unspecified Status: Acute Assessment and Plan: Continue statin (4) Hypothyroidism: Code(s): E03.9 - Hypothyroidism, unspecified Status: Acute Assessment and Plan: Continue levothyroxine Check TSH (5) GERD (gastroesophageal reflux disease): Code(s): K21.9 - Gastro-esophageal reflux disease without esophagitis Status: Acute Assessment and Plan: PPI (6) CHF (congestive heart failure): Code(s): I50.9 - Heart failure, unspecified Status: Acute Assessment and Plan: Elevated LVEDP on cardiac catheterization Check chest x-ray and BNP Currently on room air and no significant edema in legs Hold diuretics as patient received contrast (7) Coronary artery disease: Code(s): I25.10 - Atherosclerotic heart disease of [place] coronary artery without angina pectoris Status: Acute Assessment and Plan: Patient will need evaluation for CABG for lesions in other vessels (8) Type 2 diabetes mellitus without complications: Code(s): E11.9 - Type 2 diabetes mellitus without complications Status: Acute Assessment and Plan: Patient has history of diabetes mellitus but is not on any medications at this time. And [facility] for glucose monitoring and treatment at this time Check HbA1c Plan DVT prophylaxis -SCDs while in bed. Patient received anticoagulation prior to catheterization. Stress ulcer prophylaxis -PPI Nutrition -heart healthy Total Critical Care Time - 30 minutes Due to a high probability of clinically significant, life threatening deterioration, the patient required my highest level of preparedness to intervene emergently and I personally spent this critical care time directly and personally managing the patient. This critical care time included obtaining a history; examining the patient; pulse oximetry; ordering and review of studies; arranging urgent treatment with development of a management plan; evaluation of patient's response to treatment; frequent reassessment; and discussions with other providers. It was exclusive of separately billable procedures and treating other patients and teaching time. Please see Assessment and Plan section and the rest of the note for further information on patient assessment and treatment Learning And Development Specialist Consult Note Consult date: 02/29/24 Reason for consult: STEMi HPI: Sharmila Vences is a 68 year old female with past medical history of hypothyroidism hypertension and hyperlipidemia presented to ER with chief complaint of chest pain. Patient states that for the last 2 weeks she has been having chest pain in the center of chest, burning in quality, intermittently. She thought it was heartburn. Today at 3:00 a.m. she woke up from sleep and pain was severe. Pain pain was radiating to her jaw. No associated dyspnea, diaphoresis, nausea or vomiting. All other systems were reviewed and negative . Patient came to the ER and workup in the ER showed ST elevation in inferior leads. Patient was diagnosed with inferior ST segment at which ME and taken to cardiac catheterization lab. Cardiac catheterization showed 1. Multivessel coronary artery disease. Acute complete occlusion of the proximal RPLV (infarct-related artery) s/p successful PCI with TESSA x 1 (2.75 mm x 22 mm Orsiro TESSA, with the proximal portion of the stent post dilated to 3.0 mm). 2. Elevated left ventricular end-diastolic pressure of 36mmHg. Patient is now being admitted to ICU for further evaluation management. She states she feels much better. She feels anxious and feels slightly short of breath but denies any chest pain at this time. Review of Systems Review of Systems: All systems reviewed & are unremarkable except as noted in HPI and below (HPI) [facility] Past Medical History Medical History (Updated 02/29/24 @ 11:41 by Riki Beltran MD) Anxiety Chronic back pain Depression Diabetes type 2, controlled Erosive esophagitis Fibromyalgia GERD (gastroesophageal reflux disease) Hyperlipidemia Hypertension Hypothyroidism Hypothyroidism Irritable bowel syndrome Major depressive disorder Osteoarthritis SLE (systemic lupus erythematosus related syndrome) Type 2 diabetes mellitus without complications Surgical History Surgical History History of abdominal surgery adhesion removal 1979 History of appendectomy History of History of section 1980, 1987 History of foot surgery fallen arch repair left 1973 Hx of varicose vein stripping around uterus Family History Family History Father Hypertension Diabetes mellitus Acute myocardial infarction Cerebrovascular accident Mother Heart disease Acute myocardial infarction Grandparent No problems noted. Social History Social History Smoking status: Never smoker Alcohol intake: never Substance use: never Substance use type: does not use Lack of Transportation: No Lack of Food: Never True Current Housing: I Have Housing Concerned About Future Housing: No Difficulty Paying for Meds: No Currently Unemployed: No Education: Associate Degree Difficulty w/ Childcare or Family Care: No Living arrangements: with family Occupation/Education: occupation Gender identity (if verbalized by the patient): Female Sexual Orientation (if Verbalized by the Patient): Straight or Heterosexual Meds Home Medications and Allergies Home Medications Medication Instructions Recorded Confirmed Type levothyroxine 50 mcg tablet 50 mcg PO DAILY 06/18/19 06/18/19 History omeprazole 40 mg capsule,delayed 40 mg PO DAILY 06/18/19 02/29/24 History release famotidine 20 mg tablet (Pepcid) 20 mg PO BID #14 tabs 12/24/20 Rx hyoscyamine sulfate 0.125 mg 0.125 mg PO QID #7 tabs 12/24/20 Rx tablet (Levsin) ondansetron 4 mg disintegrating 4 mg PO Q8H PRN nausea and 12/24/20 Rx tablet vomiting #7 tabs ezetimibe 10 mg tablet 10 mg PO DAILY #90 tabs 12/31/22 12/31/22 Rx fluoxetine 40 mg capsule 40 mg PO DAILY #90 caps 12/31/22 02/29/24 Rx losartan 100 1 tablet PO DAILY #30 tabs 12/31/22 02/29/24 Rx mg-hydrochlorothiazide 12.5 mg tablet levothyroxine 75 mcg tablet See Rx Instructions .Route 08/28/23 02/29/24 Rx .COMPLEX #90 tabs fluoxetine 40 mg capsule 40 mg PO DAILY #90 caps 10/28/23 Rx omeprazole 40 mg capsule,delayed 40 mg PO DAILY 90 days #90 caps 01/26/24 Rx release Allergies Allergy/AdvReac Type Severity Reaction Status Date / Time morphine Allergy Severe Other Verified 08/03/23 11:59 codeine Allergy Intermediate Chest Pain Verified 08/03/23 11:59 Vital Signs Vital Signs - 24 hr 02/29/24 09:07 02/29/24 09:15 02/29/24 09:18 Temperature 36.4 C Pulse Rate 94 95 Respiratory Rate 18 Blood Pressure 193/99 H Pulse Oximetry 98 98 Oxygen Delivery Room Air Room Air 02/29/24 09:22 02/29/24 09:26 Temperature Pulse Rate 105 H 97 Respiratory Rate 19 19 Blood Pressure 174/91 H Pulse Oximetry 97 97 Oxygen Delivery Exam Narrative: General: Pt is alert awake and in NAD Lungs/Chest: Trachea central Clear BS B/L, No crackles or wheezing. Cardiac: RRR. Normal S1 S2. No murmurs Circulation: Pedal pulses are intact and symmetrical. Abdomen: Normal bowel sounds.. Soft. NT. ND. Extremities: No clubbing, cyanosis or edema. Warm TR band on the right wrist. Right hand has good flow : Al in place Neurologic: Follows commands. Moves all 4 extremities PERRL AO x3 Skin: No Rash Results Labs 02/29/24 09:19 02/29/24 09:20 Labs: Short CBC 02/29/24 Range/Units 09:19 WBC 9.3 (4.5-10.0) K/mm3 Hgb 11.3 L D (12.0-15.0) g/dL Hct 34.2 L (37.0-47.0) % Plt Count 356 (150-375) k/mm3 BMP 02/29/24 09:20 Sodium 136 L Potassium 4.1 Chloride 104 Carbon Dioxide 20 L BUN 21 H Creatinine 1.80 H Glucose 167 H Calcium 8.9 Cardiac Enzymes 02/29/24 Range/Units 09:20 Troponin I 0.889 H* (0.000-0.034) ng/mL Liver Function 02/29/24 Range/Units 09:20 Total Bilirubin 0.9 (0.2-1.3) mg/dL AST 29 (14-36) U/L ALT 14 (6-35) U/L Alkaline Phosphatase 110 (38-126) U/L Albumin 4.3 (3.5-5.1) g/dL ECG Interpretation: Sinus rhythm first-degree AV block. Interventricular conduction delay. Inferior ST elevation. Hospitalist MIPS Advance Care Plan I have confirmed that the patient's Advanced Care Plan is present, code status is documented, or surrogate decision maker is listed in patient medical record.: Yes Medication Reconciliation I have utilized all available resources to obtain, update and review the patients current medications (includes all prescriptions, OTC, herbals, cannabis, and nutritional supplements).: Yes
--- NOTE | 2024-02-29 11:27 | ECG_ITS ---
Test Date: 2024-02-29 13:18:13 Measurements Intervals [place] Rate: 76 P: 41 NC: 210 QRS: 6 QRSD: 140 T: 67 QT: 432 QTc: 486 Interpretive Statements SINUS RHYTHM WITH FIRST DEGREE AV BLOCK INTRAVENTRICULAR CONDUCTION DELAY DELAYED PRECORDIAL R/S TRANSITION INFERIOR INFARCT, AGE INDETERMINATE BORDERLINE ST-T WAVE ABNORMALITY- LAT/HIGH LAT LEADS BASELINE ARTIFACT- I, II, III, AVR, AVL, AVF, V4-V6 ABNORMAL ECG Compared to ECG 02/29/2024 09:10:43 STEMI RESOLVED Electronically Signed On 02-29-2024 13:28:03 CDT by Gonzalo Plascencia D.O.
[2024-02-29 11:32] LABS: Prothrombin Time 49.3 Seconds (11.1-14.7)
[2024-02-29] MEDS: LOSARTAN POTASSIUM 100 MG TABLET PO (11:48)
[2024-02-29] MEDS: ATORVASTATIN 40 MG TABLET 80 MG PO (11:48)
[2024-02-29] MEDS: PANTOPRAZOLE 40 MG TABLET PO (11:48)
[2024-02-29] MEDS: METOPROLOL SUCCINATE EXT REL 25 MG TABCR PO (11:48)
[2024-02-29] MEDS: SODIUM CHLORIDE 0.9% IV 1,000 ML 125 ML IV CONT (11:49)
[2024-02-29 11:53] LABS: INR 5.3; Partial Thromboplastin Time > 200.0 Seconds (22.3-36.8)
[2024-02-29 12:12] LABS: Glucose Point of Care 90 mg/dl (65-105)
[2024-02-29 12:52] LABS: Hemoglobin A1C 6.1 % (<5.7)
[2024-02-29 16:25] LABS: INR 1.4
[2024-02-29 16:28] LABS: Glucose Point of Care 106 mg/dl (65-105)
[2024-02-29] MEDS: FUROSEMIDE INJ 40 MG/4 ML VIAL IV PUSH (16:47)
[2024-02-29] MEDS: PERFLUTREN LIPID MICROSPHERES 1.5 ML VIAL DILUTED TO 10 ML TOTAL VOLUME IV PUSH (17:00)
--- NOTE | 2024-02-29 17:00 | IVDEFINITY ---
Prior to administration of IV Definity the patient was educated on the risks and benefits of the imaging enhancing agent including potential adverse side effects. The patient verbalized understanding. Allergies were verified. No exclusion criteria were identified and at least one of the following inclusion criteria were met: 1) physician request, 2) patient technically difficult to image (per the [place] [employer] Echocardi[employer] guidelines of two or more segments not discernable within the apical view), or 3) questionable left ventricular function. ?
[2024-02-29 17:24] LABS: NT Pro B Type Natriuretic Pept 8960 pg/mL (19.9-100)
[2024-02-29] MEDS: TICAGRELOR 90 MG TABLET PO (20:40)
[2024-02-29 20:47] LABS: Glucose Point of Care 123 mg/dl (65-105)
[2024-02-29] MEDS: ACETAMINOPHEN 325 MG TABLET 650 MG PO (21:20)
[2024-02-29] MEDS: diphenhydrAMINE HCl CAP 25 MG CAPSULE PO (21:21)
[2024-03-01] VITALS (22 sets, daily range): BP systolic 117–165; BP diastolic 58–95; PULSE 61–77; RESP 12–22; TEMP 36.6–38.1; O2SAT 95–99
[2024-03-01] MEDS: LABETALOL HCL INJ 100 MG/20 ML VIAL 20 MG IV PUSH (00:05)
[2024-03-01] MEDS: hydrALAZINE HCL 20 MG/ML VIAL IV PUSH (02:17)
--- NOTE | 2024-03-01 03:29 | PC.NURSE ---
Dr. Hall paged via cardiology exchange, patient experiencing nausea and no PRN medicine available.
--- NOTE | 2024-03-01 03:32 | ECG_ITS ---
Test Date: 2024-03-01 03:43:13 Measurements Intervals [place] Rate: 63 P: 38 CA: 166 QRS: 6 QRSD: 144 T: 136 QT: 468 QTc: 480 Interpretive Statements SINUS RHYTHM WITH FIRST DEGREE AV BLOCK INTRAVENTRICULAR CONDUCTION DELAY CONSIDER INFERIOR INFARCT, AGE INDETERMINATE ST-T WAVE ABNORMALITY IN HIGH LATERAL LEADS- CONSIDER ISCHEMIA BASELINE ARTIFACT- I, II, III, AVR, AVL, AVF ABNORMAL ECG Compared to ECG 02/29/2024 13:18:13 ST-T WAVE ABNORMALITY, CONSIDER ISCHEMIA NOW PRESENT Electronically Signed On 03-01-2024 05:39:05 CDT by Gonzalo Plascencia D.O.
--- NOTE | 2024-03-01 03:44 | PC.NURSE ---
New orders received for Nausea, Dr. Hall also notified about 3 second pause. Hold Beta Kelin medication and reevaluate in AM
[2024-03-01] MEDS: ONDANSETRON INJ 4 MG/2 ML VIAL IV PUSH (03:58)
[2024-03-01 05:03] LABS: Hematocrit 31.7 % (37.0-47.0); Hemoglobin 10.3 g/dL (12.0-15.0); Mean Corpuscular HGB Conc 32.5 g/dl (32-36); Mean Corpuscular Hemoglobin 27.5 pg (26-34); Mean Corpuscular Volume 84.8 fl (80-100); Mean Platelet Volume 9.9 fl (7.4-10.4); Platelet Count Result 324 k/mm3 (150-375); Red Blood Count 3.74 M/mm3 (4.2-5.4); Red Cell Distribution Width 13.3 % (11.5-14.5); White Blood Count 10.2 K/mm3 (4.5-10.0)
[2024-03-01 05:18] LABS: Alanine Aminotransferase 16 U/L (6-35); Albumin Level 3.8 g/dL (3.5-5.1); Alkaline Phosphatase 93 U/L (38-126); Anion Gap 10 mmol/L (4-12); Aspartate Amino Transferase 60 U/L (14-36); Blood Urea Nitrogen 20 mg/dL (7-17); Calcium 8.9 mg/dL (8.4-10.2); Carbon Dioxide 21 mmol/L (22-30); Chloride 105 mmol/L (98-107); Estimated CRCL calculation 25 ml/min; Estimated Glomerular Filt Rate 28; Glucose 143 mg/dL (65-110); Magnesium 1.9 mg/dL (1.6-2.3); Potassium 3.8 mmol/L (3.4-5.0); Sodium 136 mmol/L (137-145)
[2024-03-01] MEDS: LEVOTHYROXINE SODIUM 75 MCG TABLET PO (07:58)
[2024-03-01] MEDS: LOSARTAN POTASSIUM 100 MG TABLET PO (07:59)
[2024-03-01] MEDS: PANTOPRAZOLE 40 MG TABLET PO (07:59)
[2024-03-01] MEDS: TICAGRELOR 90 MG TABLET PO ×2 (07:59→20:18)
[2024-03-01] MEDS: FLUoxetine HCL 20 MG CAPSULE 40 MG PO (07:59)
[2024-03-01] MEDS: ASPIRIN 81 MG ENTERIC TABLET PO (07:59)
[2024-03-01] MEDS: ATORVASTATIN 40 MG TABLET 80 MG PO (07:59)
[2024-03-01 08:08] LABS: Glucose Point of Care 147 mg/dl (65-105)
[2024-03-01 09:35] LABS: Creatine Kinase 408 U/L (30-135)
--- NOTE | 2024-03-01 09:53 | WPDINTPN ---
Progress Note: A&P Assessment and Plan (1) ST elevation [place] (STEMI): Code(s): I21.3 - ST elevation (STEMI) myocardial infarction of unspecified site Status: Acute Assessment and Plan: Inferior STEMI status post cardiac catheterization and PCI 1. Multivessel coronary artery disease. Acute complete occlusion of the proximal RPLV (infarct-related artery) s/p successful PCI with TESSA x 1 (2.75 mm x 22 mm Orsiro TESSA, with the proximal portion of the stent post dilated to 3.0 mm). 2. Elevated left ventricular end-diastolic pressure of 36mmHg. Continue telemetry and hemodynamic monitoring Pending echocardiogram Aspirin, Lipitor, losartan and Brilinta Beta-pancho is on hold (2) Hypertension: Code(s): I10 - Essential (primary) hypertension Status: Acute Assessment and Plan: Patient has been started on metoprolol and losartan P.r.n. labetalol hydralazine (3) Hyperlipidemia: Code(s): E78.5 - Hyperlipidemia, unspecified Status: Acute Assessment and Plan: Continue statin (4) Hypothyroidism: Code(s): E03.9 - Hypothyroidism, unspecified Status: Acute Assessment and Plan: Continue levothyroxine Normal TSH (5) GERD (gastroesophageal reflux disease): Code(s): K21.9 - Gastro-esophageal reflux disease without esophagitis Status: Acute Assessment and Plan: PPI (6) CHF (congestive heart failure): Code(s): I50.9 - Heart failure, unspecified Status: Acute Assessment and Plan: Elevated LVEDP on cardiac catheterization Elevated BNP and congestion and chest x-ray. She is on room air and no significant edema in legs but asymptomatic She received Lasix yesterday Continue Lasix today (7) Coronary artery disease: Code(s): I25.10 - Atherosclerotic heart disease of [place] coronary artery without angina pectoris Status: Acute Assessment and Plan: Patient will need evaluation for CABG for lesions in other vessels (8) Type 2 diabetes mellitus without complications: Code(s): E11.9 - Type 2 diabetes mellitus without complications Status: Acute Assessment and Plan: Patient has history of diabetes mellitus but is not on any medications at this time. And SSI for glucose monitoring and treatment at this time HbA1c 6.1 (9) Sinus pause: Code(s): I45.5 - Other specified heart block Status: Acute Assessment and Plan: 3 second sinus pauses Beta-blockers on hold at this time. Monitor. Will discuss with Cardiology. Electrolytes reviewed (10) Elevated serum creatinine: Code(s): R79.89 - Other specified abnormal findings of blood chemistry Status: Acute Assessment and Plan: Patient's creatinine is 1.8 last recorded creatinine are chart was 1.2 in December of 2020 Patient may have chronic kidney disease she does have diabetes and uncontrolled hypertension. She states her last lab work was done 6 months ago I will obtain records from her primary care physician Check UA, urine sodium and creatinine, CK, renal ultrasound Lasix for CHF as above mention Monitor urine output electrolytes and creatinine Plan DVT prophylaxis -SCDs and Lovenox Stress ulcer prophylaxis -PPI Nutrition -heart healthy Subjective Date/time seen: 03/01/24 Patient had some shortness of breath overnight with difficulty to take deep breaths. She denies any pain. She does had some nausea but no vomiting. On further review patient admitted that she did had orthopnea and PND at home and has recently bought a bed with head elevation. She thought the symptoms were secondary to heartburn. All other systems were reviewed and were negative Patient had second pause on telemetry Urine output is adequate. Afebrile. She is tolerating oral diet. Other vital signs are stable. Review of Systems Review of Systems: All systems reviewed & are unremarkable except as noted in HPI and below (HPI) Exam Narrative: General: Pt is alert awake and in NAD Lungs/Chest: Trachea central Clear BS B/L, No crackles or wheezing. Cardiac: RRR. Normal S1 S2. No murmurs Circulation: Pedal pulses are intact and symmetrical. Abdomen: Normal bowel sounds.. Soft. NT. ND. Extremities: No clubbing, cyanosis or edema. Warm Right hand has good flow : Al in place Neurologic: Follows commands. Moves all 4 extremities PERRL AO x3 Skin: No Rash Objective Data Vital Signs Vital Signs: Vital Signs - 24 hr 02/29/24 11:48 02/29/24 12:00 02/29/24 12:00 Temperature 36.8 C Pulse Rate 85 72 81 Pulse Rate [Bilateral Pedal (Dorsalis Pedis)] Respiratory Rate 18 Blood Pressure 178/87 H Pulse Oximetry 100 Oxygen Delivery Oxygen Flow Rate 02/29/24 12:00 02/29/24 11:00 02/29/24 11:15 Temperature Pulse Rate 76 75 Pulse Rate [Bilateral Pedal (Dorsalis Pedis)] 76 75 Respiratory Rate 20 21 H Blood Pressure 192/92 H 177/92 H Pulse Oximetry 97 100 97 Oxygen Delivery Nasal Cannula Oxygen Flow Rate 2 02/29/24 12:30 02/29/24 13:00 02/29/24 14:00 Temperature Pulse Rate 76 74 69 Pulse Rate [Bilateral Pedal (Dorsalis Pedis)] Respiratory Rate 16 16 16 Blood Pressure 180/92 H 170/110 H 163/93 H Pulse Oximetry 100 98 100 Oxygen Delivery Oxygen Flow Rate 02/29/24 11:30 02/29/24 14:00 02/29/24 14:00 Temperature Pulse Rate 74 69 69 Pulse Rate [Bilateral Pedal (Dorsalis Pedis)] Respiratory Rate 16 19 Blood Pressure 178/87 H 163/93 H Pulse Oximetry 98 100 Oxygen Delivery Oxygen Flow Rate 02/29/24 16:00 02/29/24 15:00 02/29/24 16:00 Temperature 36.8 C Pulse Rate 74 76 61 Pulse Rate [Bilateral Pedal (Dorsalis Pedis)] Respiratory Rate 18 16 Blood Pressure 163/89 H 110/79 Pulse Oximetry 99 97 Oxygen Delivery Oxygen Flow Rate 02/29/24 16:00 02/29/24 18:00 02/29/24 18:00 Temperature Pulse Rate 61 68 Pulse Rate [Bilateral Pedal (Dorsalis Pedis)] Respiratory Rate 18 Blood Pressure 161/79 H Pulse Oximetry 99 97 Oxygen Delivery Nasal Cannula Oxygen Flow Rate 2 02/29/24 19:08 02/29/24 20:00 02/29/24 20:00 Temperature 36.9 C Pulse Rate 66 62 63 Pulse Rate [Bilateral Pedal (Dorsalis Pedis)] 66 Respiratory Rate 17 18 17 Blood Pressure 152/64 H Pulse Oximetry 98 98 97 Oxygen Delivery Nasal Cannula Oxygen Flow Rate 1 02/29/24 20:00 02/29/24 22:00 02/29/24 22:00 Temperature Pulse Rate 61 63 61 Pulse Rate [Bilateral Pedal (Dorsalis Pedis)] Respiratory Rate 13 Blood Pressure 160/79 H Pulse Oximetry 97 Oxygen Delivery Oxygen Flow Rate 03/01/24 00:05 03/01/24 00:00 03/01/24 00:00 Temperature Pulse Rate 65 65 65 Pulse Rate [Bilateral Pedal (Dorsalis Pedis)] Respiratory Rate 13 Blood Pressure Pulse Oximetry 97 Oxygen Delivery Nasal Cannula Oxygen Flow Rate 1 03/01/24 00:00 02/29/24 20:50 03/01/24 02:00 Temperature 36.7 C Pulse Rate 67 61 Pulse Rate [Bilateral Pedal (Dorsalis Pedis)] Respiratory Rate 18 Blood Pressure 161/84 H Pulse Oximetry 99 97 Oxygen Delivery Nasal Cannula Oxygen Flow Rate 1 03/01/24 02:00 03/01/24 03:17 03/01/24 04:00 Temperature 36.7 C Pulse Rate 61 63 64 Pulse Rate [Bilateral Pedal (Dorsalis Pedis)] Respiratory Rate 15 13 Blood Pressure 165/60 H 132/59 L 130/58 L Pulse Oximetry 96 95 Oxygen Delivery Oxygen Flow Rate 03/01/24 04:00 03/01/24 04:00 03/01/24 06:00 Temperature Pulse Rate 66 63 68 Pulse Rate [Bilateral Pedal (Dorsalis Pedis)] Respiratory Rate 14 Blood Pressure Pulse Oximetry 97 Oxygen Delivery Nasal Cannula Oxygen Flow Rate 1 03/01/24 06:00 03/01/24 08:00 03/01/24 08:00 Temperature 36.6 C Pulse Rate 70 68 68 Pulse Rate [Bilateral Pedal (Dorsalis Pedis)] Respiratory Rate 12 14 Blood Pressure 133/60 117/87 Pulse Oximetry 97 98 Oxygen Delivery Oxygen Flow Rate Intake/Output Intake/Output: Intake & Output 02/27/24 02/28/24 02/29/24 03/01/24 23:59 23:59 23:59 23:59 Intake Total 1120 Output Total 900 480 Balance 220 -480 Meds/Results Medications: Active Medications Generic Name Dose Route Start Last Admin Trade Name Freq PRN Reason Stop Dose Admin Acetaminophen 650 mg 02/29/24 20:48 02/29/24 21:20 Acetaminophen 325 Mg Tablet PO 650 mg Q6H PRN Administration Mild Pain (1-3) or Fever Aspirin 81 mg 03/01/24 09:00 03/01/24 07:59 Aspirin 81 Mg Enteric Tablet PO 81 mg QAM APPLE Administration Atorvastatin Calcium 80 mg 02/29/24 10:50 03/01/24 07:59 Atorvastatin 40 Mg Tablet PO 80 mg DAILY APPLE Administration Dextrose 12.5 gm 02/29/24 11:32 Dextrose 50% 25 Gm/50 Ml Syringe IV PUSH PRN PRN Hypoglycemia Protocol Diphenhydramine HCl 25 mg 02/29/24 20:46 02/29/24 21:21 Diphenhydramine Hcl Cap 25 Mg Capsule PO 25 mg HS PRN Administration Sleep Fluoxetine HCl 40 mg 03/01/24 09:00 03/01/24 07:59 Fluoxetine Hcl 20 Mg Capsule PO 40 mg DAILY APPLE Administration Glucagon 1 mg 02/29/24 11:32 Glucagon For Inj 1 Mg Vial IM PRN PRN Hypoglycemia Protocol Glucose 15 gm 02/29/24 11:32 Glucose Oral Gel 15 Gm Of Glucse In 37.5 Gm Tube PO PRN PRN Hypoglycemia Protocol Hydralazine HCl 20 mg 02/29/24 11:33 03/01/24 02:17 Hydralazine Hcl 20 Mg/Ml Vial IV PUSH 20 mg Q4H PRN Administration SBP more than 160 - 2nd Choice Dextrose 1,000 mls @ 100 mls/hr 02/29/24 11:32 Dextrose 5% 1,000 Ml IVPB PRN PRN Hypoglycemia Protocol Insulin Aspart 3 - 6 units 02/29/24 12:00 03/01/24 08:00 Insulin Aspart (*Bkc) 100 Units/Ml SUB-Q Not Given TIDWM [facility] Protocol Insulin Aspart 1 - 3 units 02/29/24 21:00 02/29/24 20:40 Insulin Aspart (*Bkc) 100 Units/Ml SUB-Q Not Given HS [facility] Protocol Labetalol HCl 20 mg 02/29/24 11:33 03/01/24 00:05 Labetalol Hcl Inj 100 Mg/20 Ml Vial IV PUSH 20 mg Q4H PRN Administration SBP > 160 and HR > 60 Levothyroxine Sodium 75 mcg 03/01/24 06:30 03/01/24 07:58 Levothyroxine Sodium 75 Mcg Tablet PO 75 mcg DAILY@0630 APPLE Administration Losartan Potassium 100 mg 02/29/24 11:30 03/01/24 07:59 Losartan Potassium 100 Mg Tablet PO 100 mg DAILY APPLE Administration Metoprolol Succinate 25 mg 02/29/24 10:50 02/29/24 11:48 Metoprolol Succinate Ext Rel 25 Mg Tabcr PO 25 mg QAM APPLE Administration Ondansetron HCl 4 mg 03/01/24 03:44 03/01/24 03:58 Ondansetron Inj 4 Mg/2 Ml Vial IV PUSH 4 mg Q6H PRN Administration Nausea And Vomiting Pantoprazole Sodium 40 mg 02/29/24 11:30 03/01/24 07:59 Pantoprazole 40 Mg Tablet PO 40 mg QAM APPLE Administration Ticagrelor 90 mg 02/29/24 21:00 03/01/24 07:59 Ticagrelor 90 Mg Tablet PO 90 mg Q12HR APPLE Administration Radiology Results: ITS Impressions Chest X-Ray 02/29/24 11:46 IMPRESSION: 1. Diffuse mild increased initial pattern consistent with mild pulmonary edema. Labs Labs: Laboratory Results - last 24 hr 02/29/24 02/29/24 02/29/24 09:19 09:20 11:09 WBC RBC Hgb Hct MCV MCH MCHC RDW Plt Count MPV PT 49.3 H D INR 5.3 H* APTT > 200.0 H* Sodium 136 L Potassium 4.1 Chloride 104 Carbon Dioxide 20 L Anion Gap 12 BUN 21 H Creatinine 1.80 H Estim Creat Clear Calc 25 Estimated GFR 28 L Glucose 167 H POC Capillary Glucose Hemoglobin A1c 6.1 H Calcium 8.9 Magnesium Total Bilirubin 0.9 AST 29 ALT 14 Alkaline Phosphatase 110 Total Creatine Kinase Troponin I 0.889 H* NT-Pro-B Natriuret Pep 8960 H Total Protein 8.0 Albumin 4.3 Triglycerides 245 H Cholesterol 258 H LDL Cholesterol Direct 160 HDL Direct 48 Lipase 216 TSH 3.070 02/29/24 02/29/24 02/29/24 12:09 15:46 16:22 WBC RBC Hgb Hct MCV MCH MCHC RDW Plt Count MPV PT 18.0 H D INR 1.4 APTT 60.0 H Sodium Potassium Chloride Carbon Dioxide Anion Gap BUN Creatinine Estim Creat Clear Calc Estimated GFR Glucose POC Capillary Glucose 90 106 H Hemoglobin A1c Calcium Magnesium Total Bilirubin AST ALT Alkaline Phosphatase Total Creatine Kinase Troponin I NT-Pro-B Natriuret Pep Total Protein Albumin Triglycerides Cholesterol LDL Cholesterol Direct HDL Direct Lipase TSH 02/29/24 03/01/24 03/01/24 20:38 04:36 07:57 WBC 10.2 H RBC 3.74 L Hgb 10.3 L Hct 31.7 L MCV 84.8 MCH 27.5 MCHC 32.5 RDW 13.3 Plt Count 324 MPV 9.9 PT INR APTT Sodium 136 L Potassium 3.8 Chloride 105 Carbon Dioxide 21 L Anion Gap 10 BUN 20 H Creatinine 1.80 H Estim Creat Clear Calc 25 Estimated GFR 28 L Glucose 143 H POC Capillary Glucose 123 H 147 H Hemoglobin A1c Calcium 8.9 Magnesium 1.9 Total Bilirubin 1.0 AST 60 H ALT 16 Alkaline Phosphatase 93 Total Creatine Kinase 408 H Troponin I NT-Pro-B Natriuret Pep Total Protein 7.0 Albumin 3.8 Triglycerides Cholesterol LDL Cholesterol Direct HDL Direct Lipase TSH
[2024-03-01] MEDS: FUROSEMIDE INJ 40 MG/4 ML VIAL IV PUSH (10:09)
--- NOTE | 2024-03-01 10:18 | PM.PNCARD ---
Progress Note: A&P Assessment and Plan (1) ST elevation [place] (STEMI): Code(s): I21.3 - ST elevation (STEMI) myocardial infarction of unspecified site Status: Acute Assessment and Plan: Cardiac catheterization showed: 1. Multivessel coronary artery disease. Acute complete occlusion of the proximal RPLV (infarct-related artery) s/p successful PCI with TESSA x 1 (2.75 mm x 22 mm Orsiro TESSA, with the proximal portion of the stent post dilated to 3.0 mm). 2. Elevated left ventricular end-diastolic pressure of 36mmHg. ASA 81mg once daily indefinitely. Brilinta 90mg BID. High intensity statin Regarding her left coronary artery disease, consider outpatient CT Surgery consultation for consideration of surgical revascularization vs multivessel PCI once she has recovered from this event. Will arrange close outpatient follow up in our office. Continue aggressive medical therapy and risk factor modification. (2) Ischemic cardiomyopathy: Code(s): I25.5 - Ischemic cardiomyopathy Status: Acute Assessment and Plan: Echocardiogram with LVEF 30-35%. Continue Losartan. Continue Metoprolol. Will start Spironolactone. (3) Hypertension: Code(s): I10 - Essential (primary) hypertension Status: Acute Assessment and Plan: Continue Losartan. Home HCTZ discontinued. Continue Metoprolol. Will start Spironolactone given reduced LVEF. (4) Hyperlipidemia: Code(s): E78.5 - Hyperlipidemia, unspecified Status: Acute Assessment and Plan: Continue high intensity statin. (5) Hypothyroidism: Code(s): E03.9 - Hypothyroidism, unspecified Status: Acute Assessment and Plan: Continue Levoythyroxine (6) GERD (gastroesophageal reflux disease): Code(s): K21.9 - Gastro-esophageal reflux disease without esophagitis Status: Acute Assessment and Plan: Continue PPI (7) Type 2 diabetes mellitus without complications: Code(s): E11.9 - Type 2 diabetes mellitus without complications Status: Acute Assessment and Plan: Hgb A1c is 6.1. Will need outpatient follow up with primary care. (8) Elevated serum creatinine: Code(s): R79.89 - Other specified abnormal findings of blood chemistry Status: Acute Assessment and Plan: SCr is 1.8. Baseline unknown. Suspect she may have a degree of underlying CKD. Plan Transfer out to IMU today. Anticipate possible discharge tomorrow. Recommendations and plan discussed with Production Support Engineer. Subjective Date/time seen: 03/01/24 10:18 Interval history: Reason for visit: STEMI HPI: Sharmila is a 68 year old female with hypertension, hyperlipidemia, hypothyroidism who presented to [place] [facility] with chest pain. Has been having intermittent chest pain over the past two weeks. Chest pain began at 3AM and was severe, radiating to jaw. In the ED, EKG shows inferior STEMI. pathology laboratory aide activated. Date of service 03/01: No chest pain. Some shortness of breath. Given a dose of IV Lasix this morning. Review of Systems Review of Systems: All systems reviewed & are unremarkable except as noted in HPI and below (HPI) Exam Const: General: comfortable and no acute distress HENMT: Mouth: Yes moist mucous membranes Eyes: General: appearance normal, both eyes and all related structures Sclera: sclerae normal Resp: Effort & Inspection: normal respiratory effort Cardio: Rate: regular rate Rhythm: regular rhythm Heart sounds: no murmurs Skin: General skin exam: normal color Psych: Mental Status: mental status grossly normal Affect: normal affect Objective Data Vital Signs Vital Signs: Vital Signs - 24 hr 02/29/24 11:48 02/29/24 12:00 02/29/24 12:00 Temperature 36.8 C Pulse Rate 85 72 81 Pulse Rate [Bilateral Pedal (Dorsalis Pedis)] Respiratory Rate 18 Blood Pressure 178/87 H Pulse Oximetry 100 Oxygen Delivery Oxygen Flow Rate 02/29/24 12:00 02/29/24 11:00 02/29/24 11:15 Temperature Pulse Rate 76 75 Pulse Rate [Bilateral Pedal (Dorsalis Pedis)] 76 75 Respiratory Rate 20 21 H Blood Pressure 192/92 H 177/92 H Pulse Oximetry 97 100 97 Oxygen Delivery Nasal Cannula Oxygen Flow Rate 2 02/29/24 12:30 02/29/24 13:00 02/29/24 14:00 Temperature Pulse Rate 76 74 69 Pulse Rate [Bilateral Pedal (Dorsalis Pedis)] Respiratory Rate 16 16 16 Blood Pressure 180/92 H 170/110 H 163/93 H Pulse Oximetry 100 98 100 Oxygen Delivery Oxygen Flow Rate 02/29/24 11:30 02/29/24 14:00 02/29/24 14:00 Temperature Pulse Rate 74 69 69 Pulse Rate [Bilateral Pedal (Dorsalis Pedis)] Respiratory Rate 16 19 Blood Pressure 178/87 H 163/93 H Pulse Oximetry 98 100 Oxygen Delivery Oxygen Flow Rate 02/29/24 16:00 02/29/24 15:00 02/29/24 16:00 Temperature 36.8 C Pulse Rate 74 76 61 Pulse Rate [Bilateral Pedal (Dorsalis Pedis)] Respiratory Rate 18 16 Blood Pressure 163/89 H 110/79 Pulse Oximetry 99 97 Oxygen Delivery Oxygen Flow Rate 02/29/24 16:00 02/29/24 18:00 02/29/24 18:00 Temperature Pulse Rate 61 68 Pulse Rate [Bilateral Pedal (Dorsalis Pedis)] Respiratory Rate 18 Blood Pressure 161/79 H Pulse Oximetry 99 97 Oxygen Delivery Nasal Cannula Oxygen Flow Rate 2 02/29/24 19:08 02/29/24 20:00 02/29/24 20:00 Temperature 36.9 C Pulse Rate 66 62 63 Pulse Rate [Bilateral Pedal (Dorsalis Pedis)] 66 Respiratory Rate 17 18 17 Blood Pressure 152/64 H Pulse Oximetry 98 98 97 Oxygen Delivery Nasal Cannula Oxygen Flow Rate 1 02/29/24 20:00 02/29/24 22:00 02/29/24 22:00 Temperature Pulse Rate 61 63 61 Pulse Rate [Bilateral Pedal (Dorsalis Pedis)] Respiratory Rate 13 Blood Pressure 160/79 H Pulse Oximetry 97 Oxygen Delivery Oxygen Flow Rate 03/01/24 00:05 03/01/24 00:00 03/01/24 00:00 Temperature Pulse Rate 65 65 65 Pulse Rate [Bilateral Pedal (Dorsalis Pedis)] Respiratory Rate 13 Blood Pressure Pulse Oximetry 97 Oxygen Delivery Nasal Cannula Oxygen Flow Rate 1 03/01/24 00:00 02/29/24 20:50 03/01/24 02:00 Temperature 36.7 C Pulse Rate 67 61 Pulse Rate [Bilateral Pedal (Dorsalis Pedis)] Respiratory Rate 18 Blood Pressure 161/84 H Pulse Oximetry 99 97 Oxygen Delivery Nasal Cannula Oxygen Flow Rate 1 03/01/24 02:00 03/01/24 03:17 03/01/24 04:00 Temperature 36.7 C Pulse Rate 61 63 64 Pulse Rate [Bilateral Pedal (Dorsalis Pedis)] Respiratory Rate 15 13 Blood Pressure 165/60 H 132/59 L 130/58 L Pulse Oximetry 96 95 Oxygen Delivery Oxygen Flow Rate 03/01/24 04:00 03/01/24 04:00 03/01/24 06:00 Temperature Pulse Rate 66 63 68 Pulse Rate [Bilateral Pedal (Dorsalis Pedis)] Respiratory Rate 14 Blood Pressure Pulse Oximetry 97 Oxygen Delivery Nasal Cannula Oxygen Flow Rate 1 03/01/24 06:00 03/01/24 08:00 03/01/24 08:00 Temperature 36.6 C Pulse Rate 70 68 68 Pulse Rate [Bilateral Pedal (Dorsalis Pedis)] Respiratory Rate 12 14 Blood Pressure 133/60 117/87 Pulse Oximetry 97 98 Oxygen Delivery Oxygen Flow Rate 03/01/24 10:00 03/01/24 10:15 03/01/24 10:17 Temperature 36.8 C Pulse Rate 72 75 74 Pulse Rate [Bilateral Pedal (Dorsalis Pedis)] Respiratory Rate 21 H Blood Pressure 126/95 H 139/90 133/71 Pulse Oximetry 98 Oxygen Delivery Oxygen Flow Rate Intake/Output Intake/Output: Intake & Output 02/27/24 02/28/24 02/29/24 03/01/24 23:59 23:59 23:59 23:59 Intake Total 1120 150 Output Total 900 480 Balance 220 -330 Meds/Results Medications: Active Medications Generic Name Dose Route Start Last Admin Trade Name Freq PRN Reason Stop Dose Admin Acetaminophen 650 mg 02/29/24 20:48 02/29/24 21:20 Acetaminophen 325 Mg Tablet PO 650 mg Q6H PRN Administration Mild Pain (1-3) or Fever Aspirin 81 mg 03/01/24 09:00 03/01/24 07:59 Aspirin 81 Mg Enteric Tablet PO 81 mg QAM APPLE Administration Atorvastatin Calcium 80 mg 02/29/24 10:50 03/01/24 07:59 Atorvastatin 40 Mg Tablet PO 80 mg DAILY APPLE Administration Dextrose 12.5 gm 02/29/24 11:32 Dextrose 50% 25 Gm/50 Ml Syringe IV PUSH PRN PRN Hypoglycemia Protocol Diphenhydramine HCl 25 mg 02/29/24 20:46 02/29/24 21:21 Diphenhydramine Hcl Cap 25 Mg Capsule PO 25 mg HS PRN Administration Sleep Enoxaparin Sodium 30 mg 03/02/24 09:00 Enoxaparin 30 Mg/0.3 Ml Syringe SUB-Q DAILY APPLE Fluoxetine HCl 40 mg 03/01/24 09:00 09/26/24 07:59 Fluoxetine Hcl 20 Mg Capsule PO 40 mg DAILY APPLE Administration Glucagon 1 mg 02/29/24 11:32 Glucagon For Inj 1 Mg Vial IM PRN PRN Hypoglycemia Protocol Glucose 15 gm 02/29/24 11:32 Glucose Oral Gel 15 Gm Of Glucse In 37.5 Gm Tube PO PRN PRN Hypoglycemia Protocol Dextrose 1,000 mls @ 100 mls/hr 02/29/24 11:32 Dextrose 5% 1,000 Ml IVPB PRN PRN Hypoglycemia Protocol Insulin Aspart 3 - 6 units 02/29/24 12:00 03/01/24 08:00 Insulin Aspart (*Bkc) 100 Units/Ml SUB-Q Not Given TIDWM [facility] Protocol Insulin Aspart 1 - 3 units 02/29/24 21:00 02/29/24 20:40 Insulin Aspart (*Bkc) 100 Units/Ml SUB-Q Not Given HS [facility] Protocol Levothyroxine Sodium 75 mcg 03/01/24 06:30 03/01/24 07:58 Levothyroxine Sodium 75 Mcg Tablet PO 75 mcg DAILY@0630 APPLE Administration Losartan Potassium 100 mg 02/29/24 11:30 03/01/24 07:59 Losartan Potassium 100 Mg Tablet PO 100 mg DAILY APPLE Administration Metoprolol Succinate 25 mg 02/29/24 10:50 02/29/24 11:48 Metoprolol Succinate Ext Rel 25 Mg Tabcr PO 25 mg QAM [facility] Administration Ondansetron HCl 4 mg 03/01/24 03:44 03/01/24 03:58 Ondansetron Inj 4 Mg/2 Ml Vial IV PUSH 4 mg Q6H PRN Administration Nausea And Vomiting Pantoprazole Sodium 40 mg 02/29/24 11:30 03/01/24 07:59 Pantoprazole 40 Mg Tablet PO 40 mg QAM APPLE Administration Spironolactone 25 mg 03/01/24 10:20 Spironolactone 25 Mg Tablet PO QAM APPLE Ticagrelor 90 mg 02/29/24 21:00 03/01/24 07:59 Ticagrelor 90 Mg Tablet PO 90 mg Q12HR APPLE Administration Radiology Results: ITS Impressions Chest X-Ray 02/29/24 11:46 IMPRESSION: 1. Diffuse mild increased initial pattern consistent with mild pulmonary edema. Labs Labs: Laboratory Results - last 24 hr 02/29/24 02/29/24 02/29/24 09:19 11:09 12:09 WBC RBC Hgb Hct MCV MCH MCHC RDW Plt Count MPV PT 49.3 H D INR 5.3 H* APTT > 200.0 H* Sodium Potassium Chloride Carbon Dioxide Anion Gap BUN Creatinine Estim Creat Clear Calc Estimated GFR Glucose POC Capillary Glucose 90 Hemoglobin A1c 6.1 H Calcium Magnesium Total Bilirubin AST ALT Alkaline Phosphatase Total Creatine Kinase NT-Pro-B Natriuret Pep 8960 H Total Protein Albumin Triglycerides 245 H Cholesterol 258 H LDL Cholesterol Direct 160 HDL Direct 48 TSH 3.070 02/29/24 02/29/24 02/29/24 15:46 16:22 20:38 WBC RBC Hgb Hct MCV MCH MCHC RDW Plt Count MPV PT 18.0 H D INR 1.4 APTT 60.0 H Sodium Potassium Chloride Carbon Dioxide Anion Gap BUN Creatinine Estim Creat Clear Calc Estimated GFR Glucose POC Capillary Glucose 106 H 123 H Hemoglobin A1c Calcium Magnesium Total Bilirubin AST ALT Alkaline Phosphatase Total Creatine Kinase NT-Pro-B Natriuret Pep Total Protein Albumin Triglycerides Cholesterol LDL Cholesterol Direct HDL Direct TSH 03/01/24 03/01/24 04:36 07:57 WBC 10.2 H RBC 3.74 L Hgb 10.3 L Hct 31.7 L MCV 84.8 MCH 27.5 MCHC 32.5 RDW 13.3 Plt Count 324 MPV 9.9 PT INR APTT Sodium 136 L Potassium 3.8 Chloride 105 Carbon Dioxide 21 L Anion Gap 10 BUN 20 H Creatinine 1.80 H Estim Creat Clear Calc 25 Estimated GFR 28 L Glucose 143 H POC Capillary Glucose 147 H Hemoglobin A1c Calcium 8.9 Magnesium 1.9 Total Bilirubin 1.0 AST 60 H ALT 16 Alkaline Phosphatase 93 Total Creatine Kinase 408 H NT-Pro-B Natriuret Pep Total Protein 7.0 Albumin 3.8 Triglycerides Cholesterol LDL Cholesterol Direct HDL Direct TSH
[2024-03-01] MEDS: SPIRONOLACTONE 25 MG TABLET PO (10:28)
--- NOTE | 2024-03-01 10:39 | P.CDI_ITS ---
CDI Query Clarification Request CHF has been documented. Please specify type and acuity of heart failure if known. Clinical Indicators: BNP 8960, CXR states mild pulmonary edema, documented no edema in legs. Treatment: IV lasix daily * Acute * Chronic * Acute on Chronic * Unknown * Systolic * Diastolic * Combined Systolic and Diastolic * Unknown
--- NOTE | 2024-03-01 10:39 | WPDCDIQUERY2 ---
CDI Query Clarification Request CHF has been documented. Please specify type and acuity of heart failure if known. Clinical Indicators: BNP 8960, CXR states mild pulmonary edema, documented no edema in legs. Treatment: IV lasix daily Acute Chronic Acute on Chronic Unknown Systolic Diastolic Combined Systolic and Diastolic Unknown
[2024-03-01 11:33] LABS: Glucose Point of Care 125 mg/dl (65-105)
[2024-03-01] MEDS: ACETAMINOPHEN 325 MG TABLET 650 MG PO (11:33)
[2024-03-01 12:05] LABS: Add Urine Microscopic? NO; Appearance Urine Clear (Clear); Bilirubin Urine Negative (Negative); Blood Urine Negative (Negative); Color Urine Yellow (Yellow); Glucose Urine UA Negative (Negative); Ketones Urine Negative (Negative); Leukocyte Esterase Ur Negative LEU/UL (Negative); Nitrate Urine Negative (Negative); Protein Urine Negative (Negative); Specific Grav Ur 1.021 (1.001-1.035); Urobilinogen Urine 0.2 mg/dL (<2.0); pH Urine 5.5 (5.0-9.0)
[2024-03-01 12:08] LABS: Creatinine Urine 66.9 mg/dL
[2024-03-01 12:12] LABS: Sodium Urine Random 120 meq/L
--- NOTE | 2024-03-01 14:13 | PCCPR ---
Cardiopulmonary rehab consult. Spoke with Sharmila and her daughter at bedside. Overview of the program given. She expressed reluctant interest in the program. However she verbalized interest in moving forward toward attendance once released.
--- NOTE | 2024-03-01 16:12 | PC.NURSE ---
Meds to bed delivered by [facility]. Patient and family verbalized understanding of meds. Medications locked up in room lock box. Patient is aware they must stay with her at all times and be shown at time of discharge.
[2024-03-01 16:44] LABS: Glucose Point of Care 119 mg/dl (65-105)
--- NOTE | 2024-03-01 17:50 | PC.NURSE ---
This patient, Sharmila Vences, was received from [ICU-2 ] on 03/01/24 at 1750. Patient/family oriented to unit policies and routines
--- NOTE | 2024-03-01 18:21 | PC.NURSE ---
This patient, Sharmila Vences, was transferred to [214 ] on 03/01/24 at 1744. Personal belongings sent with patient. Report given to [Lora CALLAWAY ]. Appropriate documentation sent with patient. Meds to bed were placed in patient belongings bag in patient closet. Lora CALLAWAY and patient aware of medication location
[2024-03-01 20:11] LABS: Glucose Point of Care 169 mg/dl (65-105)
[2024-03-02] VITALS (10 sets, daily range): BP systolic 168–174; BP diastolic 71–91; PULSE 65–78; RESP 16–18; TEMP 36.4–36.6; O2SAT 95–97
[2024-03-02 05:31] LABS: Hematocrit 29.8 % (37.0-47.0); Hemoglobin 9.5 g/dL (12.0-15.0); Mean Corpuscular HGB Conc 31.9 g/dl (32-36); Mean Corpuscular Hemoglobin 27.5 pg (26-34); Mean Corpuscular Volume 86.1 fl (80-100); Mean Platelet Volume 9.8 fl (7.4-10.4); Platelet Count Result 294 k/mm3 (150-375); Red Blood Count 3.46 M/mm3 (4.2-5.4); Red Cell Distribution Width 13.4 % (11.5-14.5); White Blood Count 8.1 K/mm3 (4.5-10.0)
[2024-03-02 05:44] LABS: Alanine Aminotransferase 14 U/L (6-35); Albumin Level 3.6 g/dL (3.5-5.1); Alkaline Phosphatase 88 U/L (38-126); Anion Gap 8 mmol/L (4-12); Aspartate Amino Transferase 42 U/L (14-36); Bilirubin,Total 0.7 mg/dL (0.2-1.3); Blood Urea Nitrogen 23 mg/dL (7-17); Calcium 8.9 mg/dL (8.4-10.2); Carbon Dioxide 23 mmol/L (22-30); Chloride 103 mmol/L (98-107); Estimated CRCL calculation 19 ml/min; Estimated Glomerular Filt Rate 21; Glucose 138 mg/dL (65-110); Magnesium 1.9 mg/dL (1.6-2.3); Potassium 3.8 mmol/L (3.4-5.0); Sodium 134 mmol/L (137-145)
[2024-03-02] MEDS: LEVOTHYROXINE SODIUM 75 MCG TABLET PO (06:55)
[2024-03-02 08:10] LABS: Glucose Point of Care 134 mg/dl (65-105)
[2024-03-02] MEDS: ENOXAPARIN 30 MG/0.3 ML SYRINGE SUB-Q (08:18)
[2024-03-02] MEDS: ASPIRIN 81 MG ENTERIC TABLET PO (08:20)
[2024-03-02] MEDS: METOPROLOL SUCCINATE EXT REL 25 MG TABCR PO (08:20)
[2024-03-02] MEDS: FLUoxetine HCL 20 MG CAPSULE 40 MG PO (08:20)
[2024-03-02] MEDS: LOSARTAN POTASSIUM 100 MG TABLET PO (08:20)
[2024-03-02] MEDS: TICAGRELOR 90 MG TABLET PO (08:21)
[2024-03-02] MEDS: SPIRONOLACTONE 25 MG TABLET PO (08:21)
[2024-03-02] MEDS: ATORVASTATIN 40 MG TABLET 80 MG PO (08:21)
[2024-03-02] MEDS: PANTOPRAZOLE 40 MG TABLET PO (08:21)
--- NOTE | 2024-03-02 10:02 | P.DS_ITS ---
DS: Admitting Diagnosis Discharge Date 03/02/2024 Admitting Diagnosis Inferior STEMI DS: Discharge Diagnosis Discharge Diagnosis (1) ST elevation AL (STEMI): Code(s): I21.3 - ST elevation (STEMI) myocardial infarction of unspecified site Status: Acute (2) Ischemic cardiomyopathy: Code(s): I25.5 - Ischemic cardiomyopathy Status: Acute (3) Hypertension: Code(s): I10 - Essential (primary) hypertension Status: Acute (4) Hyperlipidemia: Code(s): E78.5 - Hyperlipidemia, unspecified Status: Acute (5) Elevated serum creatinine: Code(s): R79.89 - Other specified abnormal findings of blood chemistry Status: Acute (6) Diabetes type 2, controlled: Code(s): E11.9 - Type 2 diabetes mellitus without complications Status: Acute (7) Hypothyroidism: Code(s): E03.9 - Hypothyroidism, unspecified Status: Acute (8) GERD (gastroesophageal reflux disease): Code(s): K21.9 - Gastro-esophageal reflux disease without esophagitis Status: Acute DS: Summary Hospital Course Reason for hospitalization: Inferior STEMI Hospital Course: Inferior ST elevation AL (STEMI): Cardiac catheterization showed: 1. Multivessel coronary artery disease. Acute complete occlusion of the proximal RPLV (infarct-related artery) s/p successful PCI with TESSA x 1 (2.75 mm x 22 mm Orsiro TESSA, with the proximal portion of the stent post dilated to 3.0 mm). 2. Elevated left ventricular end-diastolic pressure of 36mmHg. * ASA 81mg once daily indefinitely. * Brilinta 90mg BID. * High intensity statin * Regarding her left coronary artery disease, consider outpatient CT Surgery consultation for consideration of surgical revascularization vs multivessel PCI (will need 5-6 stents) once she has recovered from this event. Will arrange close outpatient follow up in our office. Patient interested in hearing more about surgical revascularization, will get her referred to CT Surgery at [facility], [place]. * Continue aggressive medical therapy and risk factor modification. Ischemic cardiomyopathy: Echocardiogram with LVEF 30-35%. Was given intermittent IV Lasix due to shortness of breath, CXR with mild pulmonary edema, LVEDP of 36mmHg. Her shortness of breath resolved with intermittent IV Lasix. Her SCr increased from 1.8 to 2.3, therefore, will not continue with Lasix upon discharge. Continue home Losartan. Started Metoprolol. Started Spironolactone. Hypertension: Continue Losartan. Home HCTZ discontinued. Started Toprol and Spironolactone given reduced LVEF. Hyperlipidemia: Continue high intensity statin. Hypothyroidism: Continue Levoythyroxine GERD (gastroesophageal reflux disease): Continue PPI Type 2 diabetes mellitus: Hgb A1c is 6.1. Will need outpatient follow up with primary care. Elevated serum creatinine: SCr is 1.8 on admisson. Baseline unknown. Suspect she may have a degree of underlying CKD. SCr increased to 2.3 at time of discharge, likely from overdiuresis. Lasix stopped. Will have her check a BMP in 1 week as an outpatient. Will refer to Nephrology as an outpatient given likely underlying CKD. Status at Discharge Cognitive/behavioral status at discharge: Stable Functional status at discharge: independent ambulation Overall status at discharge: patient is back to baseline Time Spent with Patient Time attestation: Total time spent providing and/or coordinating discharge services: Exam Const: General: comfortable and no acute distress HENMT: Mouth: Yes moist mucous membranes Eyes: General: appearance normal, both eyes and all related structures Sclera: sclerae normal Resp: Effort & Inspection: normal respiratory effort Auscultation: clear to auscultation bilaterally Cardio: Rate: regular rate Rhythm: regular rhythm Heart sounds: no murmurs Skin: General skin exam: normal color Psych: Mental Status: mental status grossly normal Affect: normal affect DS: Data Data Completed and Pending Completed studies during hospitalization: Cardiac Cath Procedure Note Date of procedure:: 02/29/24 Performing physician:: CATHETERIZATION LABORATORY REPORT Procedure Date: 02/29/2024 Sanitation Supervisor: Allan Hall M.D., [facility]? Referring Physician: Isidoro Solares M.D. ([facility] Emergency Department) ? Anesthesia: Versed and Fentanyl were ordered and given in my presence at 09:45, procedure ended at 10:39. Supervision of nurse monitored moderate sedation with Versed and Fentanyl was provided for 54 minutes. Total of Versed 1mg and Fentanyl 25mcg were administered by the Operations Clerk RN Candy Fish. Pre-op Diagnosis: Inferior STEMI Post-op Diagnosis: 1. Multivessel coronary artery disease. Acute complete occlusion of the proximal RPLV (infarct-related artery) s/p successful PCI with TESSA x 1 (2.75 mm x 22 mm Orsiro TESSA, with the proximal portion of the stent post dilated to 3.0 mm). 2. Elevated left ventricular end-diastolic pressure of 36mmHg. Procedure(s): 1. Moderate sedation 2. Ultrasound-guided access of the right radial artery 3. Coronary angiography 4. Left heart cath 5. IVUS of the RPLV 6. PCI of the RPLV with TESSA x 1, with pre-dilatation and post-dilatation Access Site: Right radial artery Brief History and Clinical Indications: Patient is a 68 year old female with hypertension, hyperlipidemia, hypothyroidism who is referred for emergent cardiac catheterization for inferior STEMI. All risks, benefits and alternatives to left heart catheterization with or without percutaneous coronary intervention was discussed at length with the patient. Risk of complications including but not limited to bleeding, infection, arrhythmia, stroke, worsening kidney function, blood loss, groin hematoma, limb loss, emergency coronary artery bypass grafting, and even were discussed with the patient and all questions were answered. The patient understood and wished to proceed. Time out called, patient name, date of , medical record number, allergies, procedure performed, identify Sanitation Supervisor, patient and staff member concurred with accurate data, procedure carried on. Findings: LEFT HEART CATHETERIZATION FINDINGS: 1. Left main: The left main coronary artery is widely patent without any significant obstructive disease. 2. Left anterior descending: The mid portion of the LAD has a 90% stenosis followed distally by an 80% stenosis. The second diagonal branch has a 70-80% stenosis. 3. Left circumflex: The proximal LCX has an 80% stenosis. The mid portion is subtotally occluded proximal to the bifurcation of the obtuse marginal branches. 4. Right coronary artery: The RCA is the dominant vessel. The proximal and mid portions have mild diffuse disease with a 40% stenosis in the proximal portion. Shortly after the bifurcation of the distal RCA, the RPLV is 100% occluded in the proximal portion. 5. Left ventricle: A. End-diastolic pressure 36 mmHg. B. LV gram deferred. C. No significant gradient across aortic valve on catheter pullback. Description of Procedure and PCI: Patient transferred to computer lab aide room. Prepped and draped in usual sterile fashion. 2% lidocaine injected subcutaneously in right wrist area. 22-gauge venipuncture catheter used to access the right radial artery under ultrasound guidance. 6-FR slender sheath placed in right radial artery. Nitroglycerine and Verapamil were given intraarterial through the sheath. Versacore wire advanced under fluoroscopy 5F Tig 4 diagnostic catheter engaged Left Main Coronary Artery. 5F Tig 4 diagnostic catheter engaged Right Coronary Artery Multiple orthogonal angiogram obtained and reviewed Angiomax was used for anticoagulation. 6F FR 4 guide catheter was used to intubate the RCA. 0.014 [place] coronary wire was passed in to the distal RPLV. The lesion was pre-dilated with a 2.5 mm x 15 mm balloon inflated to high DENG. Multiple balloon inflations done. Intracoronary NTG was administered IVUS catheter advanced distal to the lesion, reference measurements obtained. A 2.75 mm x 22 mm Orsiro TESSA was successfully deployed into proximal RPLV. When advancing the NC balloon, the guide catheter became disengaged from the RCA and wire access was lost. The RCA was re-engaged with the same guide catheter, and the coronary wire was re-advanced to the distal RPLV. The proximal portion of the stent was post-dilated with a 3.0 mm x 8 mm NC balloon inflated to high DENG Intracoronary NTG was administered Follow-up angiograms showed an excellent result Coronary wire and guide-catheter were removed Pre-procedure - KARRIE 0 flow Post-procedure - KARRIE 3 flow No angiographic complications identified. 5F Pigtail diagnostic catheter crossed aortic valve to obtain LVEDP, LV angiogram deferred. Hemostasis was achieved by application of TR band. Disposition: ICU Transthoracic Echocardiogram 02/29/2024: 1. Left ventricular chamber dimension is mildly enlarged. 2. Left ventricular systolic function is moderately reduced, estimated at 30- 35%. 3. There is mildly increased left ventricular wall thickness. 4. The left ventricular diastolic function is grade I diastolic dysfunction. 5. Right ventricular systolic function is normal. 6. Left atrial chamber dimension is moderately enlarged. 7. There is mild aortic valve regurgitation. 8. There is mild mitral valve regurgitation. 9. There is mild tricuspid valve regurgitation. Labs on day of discharge: Labs from last 24 hours 03/02/24 03/02/24 03/01/24 07:38 04:14 20:05 WBC 8.1 RBC 3.46 L Hgb 9.5 L Hct 29.8 L MCV 86.1 MCH 27.5 MCHC 31.9 L RDW 13.4 Plt Count 294 MPV 9.8 Sodium 134 L Potassium 3.8 Chloride 103 Carbon Dioxide 23 Anion Gap 8 BUN 23 H Creatinine 2.30 H Estim Creat Clear Calc 19 Estimated GFR 21 L Glucose 138 H POC Capillary Glucose 134 H 169 H Calcium 8.9 Magnesium 1.9 Total Bilirubin 0.7 AST 42 H ALT 14 Alkaline Phosphatase 88 Total Protein 7.0 Albumin 3.6 Urine Color Urine Appearance Urine pH Ur Specific [place] Urine Protein Urine Glucose (UA) Urine Ketones Ur Blood (Man) Urine Nitrate Urine Bilirubin Urine Urobilinogen Leukocyte Esterase Rfl Ur Random Sodium Urine Creatinine 03/01/24 03/01/24 03/01/24 16:39 11:35 11:27 WBC RBC Hgb Hct MCV MCH MCHC RDW Plt Count MPV Sodium Potassium Chloride Carbon Dioxide Anion Gap BUN Creatinine Estim Creat Clear Calc Estimated GFR Glucose POC Capillary Glucose 119 H 125 H Calcium Magnesium Total Bilirubin AST ALT Alkaline Phosphatase Total Protein Albumin Urine Color Yellow Urine Appearance Clear Urine pH 5.5 Ur Specific [place] 1.021 Urine Protein Negative Urine Glucose (UA) Negative Urine Ketones Negative Ur Blood (Man) Negative Urine Nitrate Negative Urine Bilirubin Negative Urine Urobilinogen 0.2 Leukocyte Esterase Rfl Negative Ur Random Sodium 120 Urine Creatinine 66.9 Discharge Plan Discharge Attending physician on discharge: Allan Hall Consulting providers: Riki Beltran Discharging Clinician: Allan Hall Anticipated Discharge Date/Time: 03/02/24 09:57 Patient Disposition: Home, Self-Care Activity: october shower Diet: heart healthy Discharge Instructions: STEMI Patient Instructions: Antibiotic Form, Metoprolol (By mouth), Losartan (By mouth), Ticagrelor (By mouth), Heart Attack (DC), Heart Catheterization (DC) Stand Alone Forms: General Discharge Information Follow-up/Referrals: Colby Reddy MD [Physician] - 2 Weeks Jovi Mendiola MD [Primary Care Provider] - 2 Weeks Allan Hall MD [Physician] - Discharge Medications: New atorvastatin 40 mg Tablet 80 mg PO DAILY 30 Days Qty: 60 11RF aspirin 81 mg Tablet,Delayed Release (Dr/Ec) 81 mg PO QAM 30 Days Qty: 30 11RF Brilinta 90 mg Tablet 90 mg PO Q12HR Qty: 60 11RF metoprolol succinate [Toprol XL] 25 mg Tablet Extended Release 24 Hr 25 mg PO QAM Qty: 90 3RF losartan 100 mg tablet 100 mg PO DAILY Qty: 90 3RF spironolactone 25 mg Tablet 25 mg PO QAM Qty: 90 3RF Continued omeprazole 40 mg capsule,delayed release(DR/EC) 40 mg PO DAILY levothyroxine 75 mcg tablet 75 mcg PO DAILY ZzzQuil 50 mg/30 mL Liquid 50 mg PO HS PRN (Reason: Insomnia) Discontinued losartan-hydrochlorothiazide 100-12.5 mg tablet 1 tablet PO DAILY Qty: 30 2RF No Action fluoxetine 40 mg capsule 40 mg PO DAILY Qty: 90 0RF Other Ambulatory Orders: Basic Metabolic Panel (Routine) Timeframe: 1 Week Location: Determined by Patient Ordered By: Allan Hall Date of admission: 02/29/24 09:18 Primary Care Provider: Jovi Mendiola Admitting Provider: Allan Hall Attending physician on admission: Allan Hall Condition: Stable
== END 2024-03-02 11:43 | disposition home or self-care (01) | DRG 321 ==
LOC: ANHED 09:25 → ANHSURGERY 09:39 → ANHED 09:40 → ANHSURGERY 09:41 → ANHED 10:09 → ANHICU 10:10 → ANHIMU 03-01 17:57
PROVIDERS: Internal Medicine; Admitting Provider Internal Medicine; Emergency Provider Emergency Medicine; PCP Family Medicine; Visit Provider Internal Medicine
PROC: 4A023N7 Measurement of Cardiac Sampling and Pressure, Left Heart, Percutaneous Approach (ICD-10-PCS; CPT 93452; principal; 2024-02-29 09:20)
PROC: 027034Z Dilation of Coronary Artery, One Artery with Drug-eluting Intraluminal Device, Percutaneous Approach (ICD-10-PCS; 2024-02-29 09:20)
PROC: 027034Z Dilation of Coronary Artery, One Artery with Drug-eluting Intraluminal Device, Percutaneous Approach (ICD-10-PCS; 2024-02-29 09:20)
DX: I21.19 ST elevation (STEMI) myocardial infarction involving other coronary artery of inferior wall (principal); I50.21 Acute systolic (congestive) heart failure; I13.0 Hypertensive heart and chronic kidney disease with heart failure and stage 1 through stage 4 chronic kidney disease, or unspecified chronic kidney disease; I25.5 Ischemic cardiomyopathy; I25.10 Atherosclerotic heart disease of native coronary artery without angina pectoris; N18.9 Chronic kidney disease, unspecified; E11.22 Type 2 diabetes mellitus with diabetic chronic kidney disease; E78.5 Hyperlipidemia, unspecified; E03.9 Hypothyroidism, unspecified; I45.5 Other specified heart block; K21.9 Gastro-esophageal reflux disease without esophagitis
CPT/HCPCS: 36415; 71045; 76775; 80053; 80061; 81003; 82550; 82570; 82948; 83036; 83690; 83735; 83880; 84300; 84443; 84484; 85025; 85027; 85610; 85730; 92978; 93005; 93458; 99285; A9270; C1725; C1753; C1769; C1874; C1887; C1894; C8929; C9606; J0360; J0583; J1644; J1650; J1940; J2250; J2305; J2405; J3010; J7030; J7040; Q9957

== ENCOUNTER 2024-03-14 09:40 | Outpatient (CLI) | payer MEDICARE, OTHER, SELFPAY ==
[2024-03-14 10:36] LABS: Anion Gap 11 mmol/L (4-12); Blood Urea Nitrogen 24 mg/dL (7-17); Calcium 9.2 mg/dL (8.4-10.2); Carbon Dioxide 21 mmol/L (22-30); Chloride 106 mmol/L (98-107); Estimated Glomerular Filt Rate 32; Glucose 151 mg/dL (65-110); Sodium 138 mmol/L (137-145)
== END 2024-03-14 09:41 | disposition home or self-care (01) ==
LOC: ANHLAB 09:43
PROVIDERS: PCP Family Medicine; Visit Provider Internal Medicine
DX: R79.89 Other specified abnormal findings of blood chemistry (principal)
CPT/HCPCS: 36415; 80048

== ENCOUNTER 2024-07-03 10:16 | Inpatient (IN) | payer MEDICARE, OTHER, SELFPAY ==
[2024-07-03] VITALS (9 sets, daily range): BP systolic 160–183; BP diastolic 78–86; PULSE 57–67; RESP 18–20; TEMP 36.1–36.7; O2SAT 96–100; BMI 24.5
--- NOTE | ~2024-07-03 | XR_ITS ---
Clinical Indication: Shortness of breath PA and lateral views of the chest: Comparison: 06/29/2024 Findings: The lungs are clear, without evidence of focal consolidation or pleural effusion. Cardiome diastinal silhouette is stable, status post CABG. Bones and soft tissues are unremarkable. Impression: Clear lungs. Stable cardiomegaly, status post CABG. Reviewed, dictated and finalized at location M. E EXAMINER Impression: Clear lungs. Stable cardiomegaly, status post CABG.
--- NOTE | ~2024-07-03 | US_ITS ---
EXAMINATION:US venous doppler LE BI INDICATION:Elevated d-dimer TECHNIQUE: Multiple grayscale, color flow and Doppler images of the right and left lower extremity de ep venous systems were obtained and reviewed. COMPARISON:No prior studies for comparison. FINDINGS: The common femoral, superficial femoral and popliteal veins demonstrate normal respiratory variation, augmentation and compressibility. Color flow is also seen within the posterior tibial, pe roneal, greater saphenous and profunda veins. IMPRESSION: 1: No lower extremity deep venous thrombosis. Reviewed, dictated and finalized at location A. I SITE LEASING CONSULTANT
--- NOTE | ~2024-07-03 | CT_ITS ---
EXAMINATION: CTA chest PE protocol DATE: 07/03/2024 15:03 INDICATION: Shortness of breath TECHNIQUE: Computed tomography (CT) pulmonary angiogram of the chest was performed with 100 mL Omnipa que-350 intravenous contrast. Additional 3D reconstructions utilizing coronal maximum intensity proje ction (MIP) were performed. Automated exposure control and iterative reconstruction technique were em ployed. The dose-length product was 246.14 mGy-cm. COMPARISON: None FINDINGS: No pulmonary embolism. There is smooth septal line thickening in the bilateral upper lung zones minim ally at the lung bases consistent with mild pulmonary edema. There are small bilateral pleural effusi ons. Mild discoid atelectasis in the lingula. No pneumonia. Cardiomegaly with atherosclerotic coronar y artery calcific lesions and change of prior median sternotomy and coronary artery bypass grafting. The median sternotomy remains ununited. Thoracic aorta is normal in caliber with no dissection. Calci fied subcarinal lymph nodes along with multiple small splenic calcifications, all consistent with old granulomatous disease. Chronic appearing mild anterior wedging at T10 and T11. There is moderate to severe lower thoracic predominant spondylosis. IMPRESSION: 1. No pulmonary embolism. 2. Likely congestive heart failure with cardiomegaly, mild pulmonary edema and small bilateral pleura l effusions. Reviewed, dictated and finalized at location A. SMITTER SUPERVISOR IMPRESSION: 1. No pulmonary embolism. 2. Likely congestive heart failure with cardiomegaly, mild pulmonary edema and small bilateral pleural effusions.
--- NOTE | 2024-07-03 10:24 | ECG_ITS ---
Test Date: 2024-07-03 10:28:25 Measurements Intervals [place] Rate: 59 P: -21 SD: 142 QRS: -16 QRSD: 130 T: 135 QT: 477 QTc: 476 Interpretive Statements SINUS BRADYCARDIA POSSIBLE ANTERIOR MYOCARDIAL INFARCTION , PROBABLY OLD [30 ms Q WAVE IN V3/V4, OR R < 0.2 mV IN V4] MODERATE T-WAVE ABNORMALITY, CONSIDER LATERAL ISCHEMIA [-0.1+ mV T WAVE IN I/aVL/V5/V6] Compared to ECG 03/01/2024 03:43:13 NO SIGNIFICANT CHANGES Electronically Signed On 07-03-2024 16:21:38 INVESTIGATIVE WRITER by Allan Hall M.D.
[2024-07-03 10:44] LABS: Basophils Absolute Auto 0.1 K/mm3 (0.0-0.1); Basophils Percent Auto 1.3 % (0.2-1.2); Eosinophils Absolute Auto 0.2 K/mm3 (0-0.3); Eosinophils Percent Auto 3.2 % (0-4.4); Hemoglobin 9.9 g/dL (12.0-15.0); Immature Granulocyte Absolute 0.03 K/mm3 (0.00-0.031); Immature Granulocyte Percent A 0.4 % (0-0.5); Lymphocytes Absolute Auto 1.33 K/mm3 (0.9-3.2); Lymphocytes Percent Auto 17.6 % (18.3-44.2); Mean Corpuscular HGB Conc 31.9 g/dl (32-36); Mean Corpuscular Hemoglobin 27.2 pg (26-34); Mean Corpuscular Volume 85.2 fl (80-100); Mean Platelet Volume 10.1 fl (7.4-10.4); Monocytes Absolute Auto 0.7 K/mm3 (0.1-0.6); Monocytes Percent Auto 8.9 % (2.6-8.5); Neutrophils Absolute Auto 5.2 K/mm3 (1.3-6.7); Neutrophils Percent Auto 68.6 % (45.5-73.1); Platelet Count Result 349 k/mm3 (150-375); Red Blood Count 3.64 M/mm3 (4.2-5.4); Red Cell Distribution Width 14.1 % (11.5-14.5); White Blood Count 7.6 K/mm3 (4.5-10.0)
[2024-07-03 11:06] LABS: Sodium 139 mmol/L (137-145)
--- OUTSIDE RECORDS SUMMARY | 2024-07-03 11:09 | XMS_ITS | Encounter Summary ---
Author Organization [facility] Healthcare Address [address] [place] [address] Care Team Providers Care Yarn Rewinder Name Role Phone Magda Souza Primary Care Provider [phone] Alo Ibarra MD Unavailable [phone] Remigio Inman MD Unavailable [phone] Miscellaneous, Not In File Unavailable Unava ilable Jovi Mendiola MD Primary Care Provider [phone] Encounter Details Date Type Department Care Team (Late st Contact Info) Description 03/20/2024 Hospital Encounter CH ADMIT [address] [place], [place] [id number] [place] [address] [facility] [address] [facility] [address] [place], [place] [id number] Social History Tobacco Use Types Packs/Day Years Used Date Smoking Tobacco: Former Cigarettes Alcohol Use Standard Drinks/Week Comments Yes 0 (1 standard drink = 0.6 oz pur e alcohol) [facility] Utilities Answer Date Recorded In the past 12 months has e electric, gas, oil, or water company threatened to shut off services in your home? No 03/21/2024 Social Connection and Isolat ion Panel [NHANES] Answer Date Recorded In a typical week, how many times do you talk on the phone with family, friends, or neighbors? More than three times a week 03/21/2024 How often do you get togethe r with friends or relatives? Once a week 03/21/2024 How often do you attend chur ch or synagogue services? Never 03/21/2024 Do you belong to any clubs o r organizations such as presybeterian groups, unions, fraternal or athletic groups, or school groups? No 03/21/2024 How often do you attend meet ings of the clubs or organizations you belong to? Never 03/21/2024 Are you , , di vorced, , never , or living with a partner? 03/21/2024 AUDIT-C Answer Date Recorded Q1: How often do you have a drink containing alcohol? Never 03/21/2024 Q2: How many drinks containi ng alcohol do you have on a typical day when you are drinking? Patient does not drink Q3: How often do you have si x or more drinks on one occasion? Never 03/21/2024 Overall Financial Resource Strain (CARDIA) Answe r Date Recorded How hard is it for you to pa y for the very basics like food, housing, medical care, and heating? Not hard at all 03/21/2024 Hunger Vital Sign Answer Date Recorded Within the past 12 months, y ou worried that your food would run out before you got the money to buy more. Never true 03/21/20 24 Within the past 12 months, t he food you bought just didn't last and you didn't have money to get more. Never true 03/21/2024 PRAPARE - Transportation Answer Date Re corded In the past 12 months, has l ack of transportation kept you from medical appointments or from getting medications? No 03/06 In the past 12 months, has l ack of transportation kept you from meetings, work, or from getting things needed for daily living? No 03/21/2024 Housing Stability Vital Sign Answer Forrest e Recorded Unable to Pay for Housing in the Last Year Not o n file 03/21/2024 In the past 12 months, how m any times have you moved where you were living? 0 03/21/2024 At any time in the past 12 m [facility], were you homeless or living in a senior care (including now)? No 03/21/2024 Personal Safety Answer Date Recorded Have you ever been in or are you currently in a harmful physical or emotional relationship or is someone making you feel afraid or unsafe? 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 Gender Identity Not on file Sexual Orientation Not on file documented as of this encounter Plan of Treatment Scheduled Orders Name Type Priority Associated Diagnoses Order Schedule Urinalysis reflex to microscopic and culture Urine, clean voided Microbiology Routine Once for 1 Occurrences starting 03/20/2024 until 03/20/2024 X-ray chest 1 view (Portable) Imaging IP Routine Once for 1 Occurrences starting 03/20/2024 until 03/20/2024 CBC without differential Lab Timed AM Draw - every three days collect with morning lab draw until discontinued starting 03/23/2024 documented as of this encounter Procedures Procedure Name Priority Date/Time Associated Diagnosis Comments HEMOGLOBIN A1C Routine 03/21/2024 7:07 AM CDT ECG 12-LEAD Routine 03/20/2024 3:54 PM CDT documented in this encounter Results * (ABNORMAL) Hemoglobin A1c (03/21/2024 7:07 AM CDT) Hgb A1C 6.0(H) 4.0 - 5.6 % Estimated Average Glucose 126 mg/dL [facility] Comment: The ADA recommends reporting an estimated Average Glucose (eAG) with all Hemoglobin A1c results using the equation derived from a study of 507 normal and diabetic adults. ??Minority populations were underrepresented and children were not included. ?? (Diabetes Care 31:2086-8022, 2008). ??The eAG is not equivalent to a fasting glucose. Blood 03/21/2024 7:07 AM CDT 03/21/2024 8:39 AM CDT us Shyam Ramirez NP LAB BLOOD ORDERABLES Final Resu lt [facility] [id number] [address] Department [place] [address] * ECG 12 lead (03/20/2024 3:54 PM CDT) 03/20/2024 3:54 PM CDT Narrative [facility] - 03/20/2024 10:04 PM CDT Vent Rate: 52 bpm RR Interval: 1152 msec NM Interval: 123 msec QRS Duration: 142 msec QT Interval: 497 msec QTC Interval: 476 msec P-R-T [place]: -3 - -8 - -64 degrees IMPRESSION: SINUS BRADYCARDIA INTRAVENTRICULAR CONDUCTION DELAY ??[130+ ms QRS DURATION] Inferior T-wave inversions, consider ischemia ABNORMAL ECG Electronically Signed By: Filippo Noriega MD us Shyam Ramirez NP ECG ORDERABLES Final Result [facility] documented in this encounter Visit Diagnoses Not on filedocumented in this encounter Admitting Diagnoses Diagnosis Coronary artery disease due to calcified coronary lesion documented in this encounter Administered Medications Active Administered Medications - up to 3 most recent administrations Medication Order MAR Action Action Date Dose Rate Site Carrier Fluids for Secondary Infusion - 0.9% Sodium Chloride 30 mL, intravenous, As needed, For priming tubing and/or flushing, Starting on Tue03/20/24 at 1524, 0-250 ml/hr to flush line after IV infusions when no maintenance IV ordered. Infuse 30mL at the same rate as the secondary infusion. Run as primary IV, not intended for KVO. heparin 5,000 unit/mL injection 2,000 Units 2,000 Units, intravenous, Every 6 hours PRN, PTT 46-55 seconds, Starting on Tue03/20/24 at 1524, Subsequent bolus during heparin infusion., Indications: Acute Coronary SyndromeIndications:Acute Coronary Syndrome heparin 5,000 unit/mL injection 3,000 Units 3,000 Units, intravenous, Every 6 hours PRN, less than 46 seconds, Starting on Tue03/20/24 at 1524, Subsequent bolus during heparin infusion., Indications: Acute Coronary SyndromeIndications:Acute Coronary Syndrome ondansetron (ZOFRAN) injection 4 mg 4 mg, intravenous, Administer over 2 Minutes, Every 6 hours PRN, nausea, vomiting, if not tolerating PO, Starting on Tue03/20/24 at 1524, Indications: Nausea and VomitingIndications:Nausea and Vomiting ondansetron ODT (ZOFRAN-ODT) disintegrating tablet 4 mg 4 mg, oral, Every 6 hours PRN, nausea, vomiting, Starting on Tue03/20/24 at 1524, Indications: Nausea and VomitingIndications:Nausea and Vomiting senna-docusate (PERICOLACE) 8.6-50 mg per tablet 1 tablet 1 tablet, oral, 2 times daily PRN, constipation, Starting on Tue03/20/24 at 1524, Indications: constipationIndications:constipation sodium chloride 0.9% flush 0.5-20 mL 0.5-20 mL, intra-catheter, Every 8 hours scheduled, First dose on Tue03/20/24 at 1600, Flush volume based on line type and size. sodium chloride 0.9% flush 0.5-20 mL 0.5-20 mL, intra-catheter, As needed, line care, Starting on Tue03/20/24 at 1524, Flush volume based on line type and size. Flush before and after each use. documented in this encounter Historical Medications * This list may reflect changes made after this encounter. aspirin 81 mg enteric coated tablet Take 1 tablet (81 mg total) by mouth daily ticagrelor (BRILINTA) 90 mg tabletIndications :Thrombosis Prevention after PCI Take 1 tablet (90 mg total) by mouth 2 (two) times a day 03/30/2024 spironolactone (ALDACTONE) 25 mg tabletIndications :chronic heart failure Take 1 tablet (25 mg total) by mouth daily 03/30/2024 metoprolol XL (TOPROL-XL) 25 mg extended release tabletIndications :chronic heart failure,coronary artery disease Take 1 tablet (25 mg total) by mouth daily 03/30/2024 losartan (COZAAR) 50 mg tabletIndications :chronic heart failure Take 1 tablet (50 mg total) by mouth daily 03/30/2024 atorvastatin (LIPITOR) 40 mg tablet Take 1 tablet (40 mg total) by mouth daily 05/01/2024 added in this encounter Orders Medications Ordered That Gera ht Not Have Been Administered Count Last Ordered Date First Ordered Date acetaminophen (TYLENOL) tablet 650 mg 1 Carrier Fluids for Secondary Infusion - 0.9% Sodium Chloride 1 03/20/2024 heparin 5,000 unit/mL inject ion 2,000 Units 1 03/20/2024 heparin 5,000 unit/mL inject ion 3,000 Units 1 03/20/2024 heparin 5,000 unit/mL inject ion 4,000 Units 1 03/20/2024 heparin in 0.45% sodium chlo ride 25,000 units/250 mL (100 units/mL) infusion (premix) 1 03/20/2024 ondansetron (ZOFRAN) injection 4 mg 1 03/20 ondansetron ODT (ZOFRAN-ODT) disintegrating tablet 4 mg 1 03/20/2024 senna-docusate (PERICOLACE) 8.6-50 mg per tablet 1 tablet 1 03/20/2024 sodium chloride 0.9% flush 0.5-20 mL 2 03/06 Diet Count Last Ordered Date First Orde red Date ADULT DIET 1 03/20/2024 Nursing Count Last Ordered Date First Orde red Date ACTIVITY 1 03/20/2024 MAINTAIN IV ACCESS 1 03/20/2024 NOTIFY PROVIDER (SPECIFY) 1 03/20/2024 VITAL SIGNS 1 03/20/2024 WEIGH PATIENT 1 03/20/2024 Consult Count Last Ordered Date First Orde red Date IP CONSULT TO CARDIOLOGY 1 03/20/2024 IV Count Last Ordered Date First Orde red Date INSERT PERIPHERAL IV 1 03/20/2024 Admission Count Last Ordered Date First Orde red Date ADMIT TO INPATIENT 1 03/20/2024 CORE MEASURES Count Last Ordered Date First Ord ered Date REASON FOR NO VTE PROPHYLAXIS AT ADMISSION 1 03/20/2024 documented in this encounter Care Teams Yarn Rewinder Relationship Specialty Start Date End Date Magda Souza PA [address] [place] [address] PCP - General Family Medicine 02/23/22 04/22/24 Jovi Mendiola MD [address] [place] [address] PCP - General Family Medicine 04/23/24 [place] [id number] [address] [facility] [address] [address] Surgeon Cardiothoracic Surgery 03/30/24 Remigio Inman MD [address] [facility] [address], [place] [id number] Consulting Physician Cardiology 03/30/24 Miscellaneous, Not In File 03/30/24 documented as of this encounter
--- OUTSIDE RECORDS SUMMARY | 2024-07-03 11:09 | XMS_ITS | Encounter Summary ---
Author Organization [facility] Healthcare Address [address] [place] [address] Care Team Providers Care Aboriginal Ceremonial Celebrant Name Role Phone Alo Ibarra MD Unavailable [phone] Remigio Inman MD Unavailable [phone] Miscellaneous, Not In File Unavailable Unava ilable Jovi Mendiola MD Primary Care Provider [phone] Encounter Details Date Type Department Care Team (Late st Contact Info) Description 07/03/2024 Telephone [facility] Medical Group Cardiology [address] [place] [address] Allan Hall MD [address] [place] [id number] Social History Tobacco Use Types Packs/Day Years Used Date Smoking Tobacco: Former Cigarettes Alcohol Use Standard Drinks/Week Comments Yes 0 (1 standard drink = 0.6 oz pur e alcohol) [facility] Utilities Answer Date Recorded In the [...] often do you attend chur ch or moravian services? Never 03/21/2024 Do you belong to any clubs o r organizations such as quaker groups, unions, fraternal or athletic groups, or [...] any time in the past 12 m [facility], were you homeless or living in a long-term (including now)? No 03/21/2024 Personal Safety Answer Date Recorded Have you ever been in or are you currently in a harmful physical or emotional relationship or is someone making you feel afraid or unsafe? 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 Order faxed to lab and pt called to see if she will come back to to get the pro BNP drawn today. Pt states that she is still very sob, and she may go to the ER for evaluation. IT CARD CLERK * Telephone Encounter - Ashlyn Medley - 07/03/2024 9:19 AM CST Pt went into for her blood work on last Tuesday. Pt is still SOB and would like a call back. [phone] is the number to call back. Marking as high priority since pt is very concerned IT CARD CLERK documented in this encounter Plan of Treatment Not on file documented as of this encounter Visit Diagnoses Not on filedocumented in this encounter Care Teams Aboriginal Ceremonial Celebrant Relationship Specialty Start Date End Date Jovi Mendiola MD [address] [place] [address] PCP - General Family Medicine 04/23/24 [place] [address] [facility] [address] [address] Surgeon Cardiothoracic Surgery 03/30/24 Remigio Inman MD [address] [facility] [address] [facility] [place] [id number] Consulting Physician Cardiology 03/30/24 Miscellaneous, Not In File 03/30/24 documented as of this encounter
--- OUTSIDE RECORDS SUMMARY | 2024-07-03 11:09 | XMS_ITS | Clinical Summary ---
Author Organization [facility] [address] [place] [phone] Care Team Providers Care Ivory Carver Name Role Phone Alo Ibarra MD Unavailable [phone] Remigio Inman MD Unavailable [phone] Miscellaneous, Not In File Unavailable Unava ilable Jovi Mendiola MD Primary Care Provider [phone] Allergies Active Allergy Reactions Criticality Noted Date Comments Codeine Palpitations Reaction: Altered Heart Rate, , Morphine Palpitations Reaction: Altered Heart Rate, Medications aspirin 81 mg enteric coated tablet Take 1 tablet (81 mg total) by mouth daily Active levothyroxine (SYNTHROID) 75 mcg tablet Take 1 tablet (75 mcg total) by mouth 02/25/20 24 Active omeprazole (PriLOSEC) 40 mg capsule Take 1 capsule (40 mg total) by mouth daily 01/27/20 24 Active FLUoxetine (PROzac) 40 mg capsule Take 1 capsule (40 mg total) by mouth nightly 01/26/20 24 Active acetaminophen 500 mg capsuleIndications :Fever,Pain Take 2 capsules (1,000 mg total) by mouth every 6 (six) hours as needed for pain 03/30/20 24 Active senna-docusate (PERICOLACE) 8.6-50 mg Take 1 tablet by mouth daily as needed for constipation 30 tablet 03/30/20 Active Additional Information Patient not taking.Reported on 06/29/2024 losartan (COZAAR) 25 mg tabletIndications: Ischemic cardiomyopathy Take 1 tablet (25 mg total) by mouth daily 90 tablet 3 04/23/20 24 Active amLODIPine (NORVASC) 5 mg tabletIndications: hypertension Take 1 tablet (5 mg total) by mouth daily 30 tablet 2 05/01/20 24 025 Active clopidogreL (PLAVIX) 75 mg tabletIndications: Thrombosis Prevention after PCI Take 1 tablet (75 mg total) by mouth daily 30 tablet 2 05/01/20 24 025 Active spironolactone (ALDACTONE) 25 mg tablet Take 1 tablet (25 mg total) by mouth daily 30 tablet 2 05/01/20 24 025 Active metoprolol XL (TOPROL-XL) 25 mg extended release tablet Take 1 tablet (25 mg total) by mouth daily 30 tablet 2 05/01/20 24 025 Active evolocumab (REPATHA) syringe syringeIndications :atherosclerotic cardiovascular disease Inject 1 mL (140 mg total) under the skin every 14 (fourteen) days 3 mL 3 06/29/19 25 Active atorvastatin (LIPITOR) 40 mg tablet Take 1 tablet (40 mg total) by mouth daily 30 tablet 2 05/01/20 24 025 Discontin ued(Thera py completed ) Active Problems Problem Noted Date Diagnosed Date History of ST elevation myocardial infarction (S HANSEL) 06/29/2024 Hx of CABG 06/29/2024 History of percutaneous coronary intervention Heart failure with mildly re duced ejection fraction (HFmrEF) 06/29/2024 Essential hypertension 06/29/2024 CKD (chronic kidney disease) stage 3, GFR 30-59 ml/min 04/23/2024 Coronary artery disease invo lving [place] heart without angina pectoris 03/13/2024 Systemic lupus erythematosus (CMS/HCC) 4 Overview (09/08/2016): SYST LUPUS ERYTHEMATOSUS Multiple-type hyperlipidemia 10/20/2013 Overview (09/08/2016): MIXED HYPERLIPIDEMIA Type 2 diabetes mellitus 10/20/2013 Overview (09/08/2016): DMII WO CMP NT ST UNCNTR Generalized anxiety disorder 10/20/2013 Overview (09/10/2016): GENERALIZED ANXIETY DIS Resolved Problems Problem Noted Date Diagnosed Date Resolved Date Coronary artery disease (CAD) excluded 03/23/2024 06/29/2024 Coronary artery disease due to calcified coronary lesion 03/20/2024 06/29/2024 CAD in [place] artery 03/20/2024 025 Elevated blood-pressure read ing without diagnosis of hypertension 10/20/2013 06/29/2024 Overview (09/10/2016): ELEV BL PRES W/O HYPERTN Encounters Date Type Department Care Team Description 07/03/[address] [phone] Allan Hall MD 06/29/2024 10:30 AM PAYROLL ASSOCIATE Office Visit [facility] Cardiology [address] [place] [phone] Allan Hall MD Coronary artery disease involving [place] coronary artery of [place] heart without angina pectoris (Primary Dx); Multiple-type hyperlipidemia; History of ST elevation myocardial infarction (STEMI); Hx of CABG; History of percutaneous coronary intervention; Heart failure with mildly reduced ejection fraction (HFmrEF) (HCC); Essential hypertension; Dyspnea on exertion 06/28/2024 Telephone [place] [address] [place] [phone] Lawanda Mckeon NP Shortness of Breath; Extremity Weakness 05/01/2024 2:30 PM PAYROLL ASSOCIATE Office Visit [facility] Surgery [address] [place] [phone] Nancy Salas NP S/P CABG x 4 (Primary Dx) 04/23/2024 9:00 AM PAYROLL ASSOCIATE Office Visit [facility] Cardiology [address] [place] [phone] Lawanda Mckeon NP History of ST elevation myocardial infarction (STEMI); Coronary artery disease involving [place] coronary artery of [place] heart without angina pectoris; Presence of stent in coronary artery; Hx of CABG; Ischemic cardiomyopathy; Stage 3b chronic kidney disease (HCC); Hospital discharge follow-up 04/06/2024 Documentation [facility] Surgery [address] [place] [address] [address] [place] [address] Shyam Ramirez NP 04/05/2024 1:55 PM CDT Lab [address] [phone] S/P CABG x 4; Acute kidney failure due to procedure 04/05/2024 1:30 PM CDT Office Visit [address] [place] [phone] Alo Ibarra MD S/P CABG x 4 (Primary Dx); Acute renal failure with other specified pathological lesion in kidney (HCC); Acute kidney failure due to procedure 04/05/2024 Orders Only [address] [phone] Shyam Ramirez NP from Last 3 Months Immunizations Name Administration Dates Next Due Influenza, Trivalent, IM (MDV) 02/24/2009 Pneumococcal Polysaccharide PPV23 06/27/2006 Td, adsorbed 02/24/2009 Surgical History Surgery Date Site/Laterality Comments OTHER SURGICAL HISTORY BENIGN UTERINE TUMOR: RESECTION APPENDECTOMY Appendectomy SECTION section CARDIAC STENT PLACEMENT RCA- 02/2024 Medical History Medical History Date Comments Benign uterine tumor BENIGN UTER INE TUMOR Depression depression Type 2 diabetes mellitus (HCC) D iabetes type 2 Hyperlipidemia Hyperlipidemia STEMI involving right coronary artery (HCC) Crohn's disease (CMS/HCC) (HCC) Family History Medical History Relation Name Comments Hyperlipidemia Brother Hyperlipidemi a; Coronary artery disease Father Stu nary artery disease; Diabetes type II Father Diabetes -T ype II; Hypertension Father Hypertension; Coronary artery disease Mother Stu nary artery disease; Irritable bowel syndrome Mother Irr itable bowel disease; Other Mother No history of U lcerative colitis; Relation Name Status Comments Brother Father Mother Social History Tobacco Use Types Packs/Day Years Used Date Smoking Tobacco: Former Cigarettes Tobacco Cessation:Counseling Given: Not Answered Alcohol Use Standard Drinks/Week Comments Yes 0 (1 standard drink = 0.6 oz pur e alcohol) [facility] Utilities Answer Date Recorded In the past 12 months has th e electric, gas, oil, or water company [...] often do you attend chur ch or jainism services? Never 03/21/2024 Do you belong to any clubs o r organizations such as cheondoism groups, unions, fraternal or athletic groups, or [...] any time in the past 12 [facility], were you homeless or living in a intermediate (including now)? No 03/21/2024 Personal Safety Answer Date Recorded Have you ever been in or are you currently in a harmful physical or emotional relationship or is someone making you feel afraid or unsafe? Denies 03/20/2024 Comments Unknown Sex and Gender Information Value Date Recorded Sex Assigned at Not on file Legal Sex Female 1:08 AM PAYROLL ASSOCIATE Gender Identity Not on file Sexual Orientation Not on file Obstetrics History Last Filed Vital Signs Vital Sign Reading Time Taken Comments Blood Pressure 144/78 06/29/2024 10:32 AM PAYROLL ASSOCIATE Pulse 60 06/29/2024 10:32 AM PAYROLL ASSOCIATE Temperature 36.7 ??C (98.1 ??F) 03/30/2024 12:50 PM C DT Respiratory Rate 18 05/01/2024 2:27 PM PAYROLL ASSOCIATE Oxygen Saturation 97% 06/29/2024 10:32 AM PAYROLL ASSOCIATE Inhaled Oxygen Concentration - - Weight 70.9 kg (156 lb 6.4 oz) 06/29/2024 10:32 AM PAYROLL ASSOCIATE Height 165.1 cm (5' 5 ) 06/29/2024 10:32 AM PAYROLL ASSOCIATE Body Mass Index 26.03 06/29/2024 10:32 AM PAYROLL ASSOCIATE Plan of Treatment Health Maintenance Due Date Last Done Comments Albumin Creatinine Ratio, Urine 1955 Breast Cancer Screening-Mammogram 1953 Colon Cancer Screening-Colonoscopy 1955 Depression Screening 1955 Hepatitis C Screening 1955 Osteoporosis Screening-Bone Density Scan 1955 Dilated Eye Exam 1953 Foot Exam 1953 Hepatitis B Screening 11/17/1971 Zoster Vaccine (1 of 2) 11/17/2003 Pneumococcal vaccine 65+ (2 of 2 - PCV) 06/27/2007 06/27/2006 DTaP/Tdap/Td Vaccine (1 - Tdap) 02/25/2009 9 Well Visit 65+ 2018 Influenza Vaccine (#1) 2024 02/24/2009 Hemoglobin A1C 09/19/2024 03/21/2024 Fall Risk Assessment 03/30/2025 03/30/2024 eGFR 04/05/2025 04/05/2024, 03/07, 03/29/2024, Additional history exists Lipid Panel 06/29/2025 06/29/2024 Procedures Procedure Name Priority Date/Time Associated Diagnosis Comments POCT LIPID PANEL Routine 06/29/2024 10:4 9 AM PAYROLL ASSOCIATE Multiple-type hyperlipidemia EGFR Routine 04/05/2024 1:54 PM CDT S/P CABG x 4 BASIC METABOLIC PANEL Routine 04/05/2024 1:54 PM CDT S/P CABG x 4 CBC WITHOUT DIFFERENTIAL Routine 04/05/2024 1:54 PM CDT S/P CABG x 4 Acute kidney failure due to procedure HEMOGLOBIN A1C Routine 03/21/2024 7:07 AM CDT from Last 3 Months or Most Recently Relevant to Health Maintenance Results * POCT lipid panel (06/29/2024 10:49 AM PAYROLL ASSOCIATE) Cholesterol, POC 115 mg/dL Comment:GLU = 170 HDL, POC 34 mg/dL Triglycerides, POC 134 mg/dL LDL Cholesterol POC 54 mg/dL Chol/HDL Ratio, POC 1.6 Non-HDL Cholesterol, POC 81 mg/dL Cholesterol Total, POC 115 mg/dL Capillary blood 06/29/2024 1 0:49 AM PAYROLL ASSOCIATE [facility] Claudia Hall MD POINT OF CARE TEST ORDEric ROMERO Final Result * (ABNORMAL) eGFR (04/05/2024 1:54 PM CDT) eGFR 37(L) >=60 mL/min/1. 73 m2 Comment: Interpretive Data Reference Interval Normal ?>/= 90 mL/min/1.73m2 Mildly decreased* ? 60 - 89 mL/min/1.73m2 Mildly to moderately decreased ?45 - 59 mL/min/1.73m2 Moderately to severely decreased ??30 - 44 mL/min/1.73m2 Severely decreased ?15 - 29 mL/min/1.73m2 Kidney Failure ?< 15 ??mL/min/1.73m2 *Relative to young adult level Estimated glomerular filtration rate is determined by the 2020 CKD-EPI equation recommended by the National Kidney Foundation (A Unifying Approach to GFR Estimation: Recommendations of the NKF-ASK Task Force on Reassessing the Inclusion of Race in Diagnosing Kidney Disease, JASN 2020). The CKD-EPI equation should not be used for patients with unstable renal function and has not been validated in children and those over 70. Current interpretive data was last reviewed 2021. Blood 04/05/2024 1:54 PM CDT 04/05/2024 9:12 PM CDT us Shyam Ramirez UTILIZATION SUPERVISOR LAB BLOOD ORDERABLES Final Resu lt [facility] [address] Department [place] [address] * (ABNORMAL) CBC without differential (04/05/2024 1:54 PM CDT) WBC 14.5(H) 3.8 - 9.9 K/cumm Hgb 10.1(L) 11.9 - 15.5 g/dL [facility] Hct 32.5(L) 35.6 - 45.5 % [facility] Plt 657(H) 150 - 400 K/cumm [facility] MPV 9.0(L) 9.1 - 12.3 fL [facility] RBC 3.66(L) 3.90 - 5.20 M/cumm [facility] MCV 88.8 81.3 - 96.4 fL [facility] MCH 27.6 27.1 - 33.3 pg [facility] MCHC 31.1(L) 32.3 - 35.7 g/dL [facility] RDW CV 14.3 11.1 - 14.9 % [facility] RDW SD 46.5 35.7 - 48.1 fL [facility] NRBC abs 0.00 0.00 - 0.01 K/cumm [facility] Blood 04/05/2024 1:54 PM CDT 04/05/2024 8:54 PM CDT us Shyam Ramirez UTILIZATION SUPERVISOR LAB BLOOD ORDERABLES Final Resu lt [facility] [address] Department [place] [address] * (ABNORMAL) Basic metabolic panel (04/05/2024 1:54 PM CDT) Sodium 129(L) 135 - 145 mmol/L Potassium, pl 4.1 3.3 - 4.9 mmol/L [facility] Chloride 95(L) 97 - 110 mmol/L [facility] CO2 19(L) 22 - 32 mmol/L [facility] Anion gap 15 2 - 15 mmol/L [facility] BUN 26(H) 6 - 25 mg/dL [facility] Creatinine 1.52(H) 0.60 - 1.10 mg/dL [facility] Glucose 115 70 - 199 mg/dL [facility] Comment: Interpretive Data Fasting glucose >/= 126 mg/dl is diagnostic for diabetes. ?? Fasting is defined as no caloric intake for at least 8 hours. Fasting glucose between 100 mg/dl to 125 mg/dl is diagnostic of prediabetes. In a patient with classic symptoms of hyperglycemia or hyperglycemic crisis, a random glucose >/= 200 mg/dl is diagnostic for diabetes. In the absence of unequivocal hyperglycemia, results should be confirmed by repeat testing. The classification and Diagnosis of Diabetes Diabetes Care 202; 46: S19-S40. Current interpretive data was last revised 2022. Calcium 9.3 8.5 - 10.3 mg/dL [facility] Blood 04/05/2024 1:54 PM CDT 04/05/2024 8:54 PM CDT Shyam Ramirez UTILIZATION SUPERVISOR LAB BLOOD ORDERABLES Final Resu lt Performing Organization Address [facility] de Phone Number RAY [phone] Department [place] [address] * (ABNORMAL) Hemoglobin A1c (03/21/2024 7:07 AM CDT) Hgb A1C 6.0(H) 4.0 - 5.6 % Estimated Average Glucose 126 mg/dL [facility] Comment: The ADA recommends reporting an estimated Average Glucose (eAG) with all Hemoglobin A1c results using the equation derived from a study of 507 normal and diabetic adults. ??Minority populations were underrepresented and children were not included. ?? (Diabetes Care 31:2188-6094, 2008). ??The eAG is not equivalent to a fasting glucose. Blood 03/21/2024 7:07 AM CDT 03/21/2024 8:39 AM CDT Shyam Ramirez UTILIZATION SUPERVISOR LAB BLOOD ORDERABLES Final Resu lt Performing Organization Address [facility] de Phone Number JEANNIEBERENICE ARANGO [address] [place] [address] from Last 3 Months or Most Recently Relevant to Health Maintenance Insurance MEDICARE FOR LIFE MEDICARE FOR LIFE Advance Directives For more information, please contact: [phone] Documents on File Type Date Recorded Patient Laboratory Manager Expl anation ADVANCE DIRECTIVE 03/23/2024 7:26 AM Azael r of [employer] * Full Code (Latest Code Status on File) Date Activated Date Inactivated Comments 03/20/2024 4:09 PM 03/30/2024 7:45 PM * Full Code Date Activated Date Inactivated Comments 03/20/2024 3:24 PM 03/20/2024 4:05 PM Care Teams Ivory Carver Relationship Specialty Start Date End Date Jovi Mendiola MD [address] [place] [address] PCP - General Family Medicine 04/23/24 [place] [address] [address] [facility] [address] [place] [address] Surgeon Cardiothoracic Surgery 03/30/24 Remigio Inman MD [address] [facility] [address], [place] [id number] Consulting Physician Cardiology 03/30/24 Miscellaneous, Not In File 03/30/24
--- OUTSIDE RECORDS SUMMARY | 2024-07-03 11:09 | XMS_ITS | Referral Summary ---
Author Organization [facility] Medical Office Building [address] [place] [address] Care Team Providers Care Engineering Aide Name Role Phone Alo Ibarra MD Unavailable [phone] Remigio Inman MD Unavailable [phone] Miscellaneous, Not In File Unavailable Unava ilable Jovi Mendiola MD Primary Care Provider [phone] Encounters Date Type Department Care Team Description 07/03/2024 Telephone [facility] Cardiology [address] [facility] [address] [place] [address] Allan Hall MD 06/29/2024 10:30 AM TEAROOM HOST Office Visit [facility] Cardiology [address] [facility] [address] [place] [address] Allan Hall MD Coronary artery disease involving morongo coronary artery of morongo heart without angina pectoris (Primary Dx); Multiple-type hyperlipidemia; History of ST elevation myocardial infarction (STEMI); Hx of CABG; History of percutaneous coronary intervention; Heart failure with mildly reduced ejection fraction (HFmrEF) (HCC); Essential hypertension; Dyspnea on exertion 06/28/2024 Telephone [facility] Cardiology [address] [facility] [address] [place] [address] Lawanda Mckeon NP Shortness of Breath; Extremity Weakness 05/01/2024 2:30 PM TEAROOM HOST Office Visit [address] [place] [address] Nancy Salas NP S/P CABG x 4 (Primary Dx) 04/23/2024 9:00 AM TEAROOM HOST Office Visit [facility] Cardiology [address] [place] [address] Lawanda Mckeon NP History of ST elevation myocardial infarction (STEMI); Coronary artery disease involving morongo coronary artery of morongo heart without angina pectoris; Presence of stent in coronary artery; Hx of CABG; Ischemic cardiomyopathy; Stage 3b chronic kidney disease (HCC); Hospital discharge follow-up 04/06/2024 Documentation [facility] [address] [place] [address] [address] [place] [address] Shyam Ramirez NP 04/05/2024 1:55 PM CDT Lab [address] [address] S/P CABG x 4; Acute kidney failure due to procedure 04/05/2024 Orders Only [address] [address] Shyam Ramirez NP 04/05/2024 1:30 PM CDT Office Visit [address] [place] [phone] Alo Ibarra MD S/P CABG x 4 (Primary Dx); Acute renal failure with other specified pathological lesion in kidney (HCC); Acute kidney failure due to procedure from Last 3 Months Allergies Active Allergy Reactions Criticality Noted Date [...] (40 mg total) by mouth nightly 01/26/20 Active acetaminophen 500 mg capsuleIndications :Fever,Pain Take 2 capsules (1,000 mg total) by mouth every 6 (six) hours as needed for pain 03/30/20 Active senna-docusate (PERICOLACE) 8.6-50 mg Take 1 [...] mouth daily 30 tablet 2 05/01/20 24 Active clopidogreL (PLAVIX) 75 mg tabletIndications: Thrombosis Prevention after PCI Take 1 tablet (75 mg total) by mouth daily 30 tablet 2 05/01/20 24 025 Active spironolactone (ALDACTONE) 25 mg tablet Take 1 tablet (25 mg total) by mouth daily 30 tablet 2 05/01/20 24 Active metoprolol XL (TOPROL-XL) 25 mg extended release tablet Take 1 tablet (25 mg total) by mouth daily 30 tablet 2 05/01/20 24 025 Active evolocumab (REPATHA) syringe syringeIndications :atherosclerotic cardiovascular disease Inject 1 mL (140 mg total) under the skin every 14 (fourteen) days 3 mL 3 06/29/19 Active atorvastatin (LIPITOR) 40 mg tablet Take [...] ml/min 04/23/2024 Coronary artery disease invo lving morongo heart without angina pectoris 03/13/2024 Systemic lupus [...] calcified coronary lesion 03/20/2024 06/29/2024 CAD in morongo artery 03/20/2024 025 Elevated blood-pressure read ing without diagnosis of hypertension 10/20/2013 06/29/2024 Overview (09/10/2016): ELEV BL PRES W/O HYPERTN Immunizations Name Administration Dates Next Due Influenza, Trivalent, IM (MDV) 02/24/2009 Pneumococcal Polysaccharide PPV23 06/27/2006 Td, adsorbed 02/24/2009 Social History Tobacco Use Types Packs/Day Years Used Date Smoking Tobacco: Former Cigarettes Tobacco Cessation:Counseling Given: Not Answered Alcohol Use Standard Drinks/Week Comments Yes 0 (1 standard drink = 0.6 oz pur e alcohol) [facility] Utilities Answer Date Recorded In the past 12 months has [employer], gas, oil, or water [employer] threatened to shut off services in your [...] week 03/21/2024 How often do you attend [facility] or denominational services? Never 03/21/2024 Do you belong to any clubs o r organizations such as zoroastrian groups, unions, fraternal or athletic groups, or [...] any time in the past 12 m [facility], were you homeless or living in a fci (including now)? No 03/21/2024 Personal Safety Answer Date Recorded Have you ever been in or are you currently in a harmful physical or emotional relationship or is someone making you feel afraid or unsafe? Denies 03/20/2024 Comments Unknown Sex and Gender Information Value Date Recorded Sex Assigned at Not on file Legal Sex Female 1:08 AM TEAROOM HOST Gender Identity Not on file Sexual Orientation Not on file Last Filed Vital Signs Vital Sign Reading Time Taken Comments Blood Pressure 144/78 06/29/2024 10:32 AM TEAROOM HOST Pulse 60 06/29/2024 10:32 AM TEAROOM HOST Temperature 36.7 ??C (98.1 ??F) 03/30/2024 12:50 PM C DT Respiratory Rate 18 05/01/2024 2:27 PM TEAROOM HOST Oxygen Saturation 97% 06/29/2024 10:32 AM TEAROOM HOST Inhaled Oxygen Concentration - - Weight 70.9 kg (156 lb 6.4 oz) 06/29/2024 10:32 AM TEAROOM HOST Height 165.1 cm (5' 5 ) 06/29/2024 10:32 AM TEAROOM HOST Body Mass Index 26.03 06/29/2024 10:32 AM TEAROOM HOST Plan of Treatment Not on file Procedures Procedure Name Priority Date/Time Associated Diagnosis Comments POCT LIPID PANEL Routine 06/29/2024 10:4 9 AM TEAROOM HOST Multiple-type hyperlipidemia EGFR Routine 04/05/2024 1:54 PM [...] * POCT lipid panel (06/29/2024 10:49 AM TEAROOM HOST) Cholesterol, POC 115 mg/dL Comment:GLU = 170 HDL, POC 34 mg/dL Triglycerides, POC 134 mg/dL LDL Cholesterol POC 54 mg/dL Chol/HDL Ratio, POC 1.6 Non-HDL Cholesterol, POC 81 mg/dL Cholesterol Total, POC 115 mg/dL Capillary blood 06/29/2024 1 0:49 AM TEAROOM HOST us Allan Hall MD POINT OF CARE TEST ORDEric [...] 04/05/2024 9:12 PM CDT us Shyam Ramirez NP LAB BLOOD ORDERABLES Final Resu lt RAY [address] [address] [place] [address] * (ABNORMAL) CBC without differential (04/05/2024 1:54 PM CDT) WBC 14.5(H) 3.8 - 9.9 K/cumm Hgb 10.1(L) 11.9 - 15.5 g/dL [facility] CH Hct 32.5(L) 35.6 - 45.5 % [facility] CH Plt 657(H) 150 - 400 K/cumm [facility] CH MPV 9.0(L) 9.1 - 12.3 fL [facility] RBC 3.66(L) 3.90 - 5.20 M/cumm [facility] CH MCV 88.8 81.3 - 96.4 fL [facility] CH MCH 27.6 27.1 - 33.3 pg [facility] MCHC 31.1(L) 32.3 - 35.7 g/dL [facility] RDW CV 14.3 11.1 - 14.9 % [facility] CH RDW SD 46.5 35.7 - 48.1 fL [facility] NRBC abs 0.00 0.00 - 0.01 K/cumm [facility] Blood 04/05/2024 1:54 PM CDT 04/05/2024 8:54 PM CDT us Shyam Ramirez NP LAB BLOOD ORDERABLES Final Resu lt [facility] [address] [address] [place] [address] * (ABNORMAL) Basic metabolic panel (04/05/2024 1:54 PM CDT) Sodium 129(L) 135 - 145 mmol/L Potassium, pl 4.1 3.3 - 4.9 mmol/L [facility] Chloride 95(L) 97 - 110 mmol/L [facility] CO2 19(L) 22 - 32 mmol/L [facility] Anion gap 15 2 - 15 mmol/L [facility] BUN 26(H) 6 - 25 mg/dL [facility] Creatinine 1.52(H) 0.60 - 1.10 mg/dL [facility] Glucose 115 70 - 199 mg/dL [facility] Comment: Interpretive Data Fasting glucose >/= 126 [...] classification and Diagnosis of Diabetes Diabetes Care 2021; 46: S19-S40. Current interpretive data was last revised 2022. Calcium 9.3 8.5 - 10.3 mg/dL [facility] Blood 04/05/2024 1:54 PM CDT 04/05/2024 8:54 PM CDT Shyam Ramirez NP LAB BLOOD ORDERABLES Final Resu lt Performing Organization Address [facility] de Phone Number JEANNIEBERENICE ARANGO [phone] [address] [place] [address] * (ABNORMAL) Hemoglobin A1c (03/21/2024 7:07 AM CDT) [facility] Hgb A1C 6.0(H) 4.0 - 5.6 % Estimated Average Glucose 126 mg/dL [facility] Comment: The ADA recommends reporting an estimated Average Glucose (eAG) with all Hemoglobin A1c results using the equation derived from a study of 507 normal and diabetic adults. ??Minority populations were underrepresented and children were not included. ?? (Diabetes Care 31:6126-1300, 2008). ??The eAG is not equivalent to a fasting glucose. Blood 03/21/2024 7:07 AM CDT 03/21/2024 8:39 AM CDT hSyam Ramirez NP LAB BLOOD ORDERABLES Final Resu lt Performing Organization Address [facility] Co de Phone Number JEANNIEBERENICE ARANGO [address] [address] [place] [address] from Last 3 Months or Most Recently Relevant to Health Maintenance Insurance MEDICARE FOR LIFE MEDICARE FOR LIFE Advance Directives For more information, please contact: [phone] Documents on File Type Date Recorded Patient [employer] + Content Marketing Expl anation ADVANCE DIRECTIVE 03/23/2024 7:26 AM Azael r of Planner Intern-Medical * Full Code (Latest Code Status on File) Date Activated Date Inactivated Comments 03/20/2024 4:09 PM 03/30/2024 7:45 PM * Full Code Date Activated Date Inactivated Comments 03/20/2024 3:24 PM 03/20/2024 4:05 PM Care Teams Engineering Aide Relationship Specialty Start Date End Date Jovi Mendiola MD [address] [place] [address] PCP - General Family Medicine 04/23/24 [place] [address] [address] [facility] [address] [facility] [address] [place] [address] Surgeon Cardiothoracic Surgery 03/30/24 Remigio Inman MD [address] [facility] [address], [place] [address] Consulting Physician Cardiology 03/30/24 Miscellaneous, Not In File 03/30/24
--- OUTSIDE RECORDS SUMMARY | 2024-07-03 11:09 | XMS_ITS | Encounter Summary ---
Author Organization [facility] Healthcare Address [address] [place] [address] Care Team Providers Care Splitter Operator Name Role Phone Alo Ibarra MD Unavailable [phone] Remigio Inman MD Unavailable [phone] Miscellaneous, Not In File Unavailable Unava ilable Jovi Mendiola MD Primary Care Provider [phone] Reason for Visit * Reason Onset Date Comments Shortness of Breath 06/28/2024 Extremity Weakness 06/28/2024 Encounter Details Date Type Department Care Team (Late st Contact Info) Description 06/28/2024 Telephone [facility] Medical Group Cardiology [address] [facility] [address] [place] [address] Lawanda Mckeon NP [address] [place] [address] Shortness of Breath; Extremity Weakness Social History Tobacco Use Types Packs/Day Years Used Date Smoking Tobacco: Former Cigarettes Alcohol Use Standard Drinks/Week Comments Yes 0 (1 standard drink = 0.6 oz pur e alcohol) [facility] Utilities Answer Date Recorded In [...] often do you attend chur ch or quaker services? Never 03/21/2024 Do you belong to any clubs o r organizations such as rastafarian groups, unions, fraternal or athletic groups, or [...] any time in the past 12 [facility], were you homeless or living in a alf (including now)? No 03/21/2024 Personal Safety Answer Date Recorded Have you ever been in or are you currently in a harmful physical or emotional relationship or is someone making you feel afraid or unsafe? Denies 03/20/2024 Comments Unknown Sex and Gender Information Value Date Recorded Sex Assigned at Not on file Legal Sex Female 1:08 AM BOILER ROOM HELPER Gender Identity Not on file Sexual Orientation Not on file documented as of this encounter Miscellaneous Notes * Telephone Encounter - Tomeka Navarro RN - 06/28/2024 10:31 AM BOILER ROOM HELPER Spoke with pt, for a couple of weeks now pt has been tired and gets SOB easily with exertion. Pt has no CP at all. She notes that after cardiac rehab her legs feel like jello and she is quite winded when walking to her car. Pt said this happens at home after exerting herself at times too. RP had anopening tomorrow, moved pts f/u appt to tomorrow instead and cancelled her 2/5 appt. ER ROOM HELPER * Telephone Encounter - Katie Keller - 06/28/2024 10:04 AM CST Patient states that for the past couple of weeks she has been SOB and her legs feel very weak. States that her BP has been around 160/84. Requesting a call back. Please advise. Thank you. Contact [phone] ER ROOM HELPER documented in this encounter Plan of Treatment Not on file documented as of this encounter Visit Diagnoses Not on filedocumented in this encounter Care Teams Splitter Operator Relationship Specialty Start Date End Date Jovi Mendiola MD [address] [place] [address] PCP - General Family Medicine 04/23/24 [place] [address] [address] [place] [address] Surgeon Cardiothoracic Surgery 03/30/24 Remigio Inman MD [address] [facility] [address] [place] [address] Consulting Physician Cardiology 03/30/24 Miscellaneous, Not In File 03/30/24 documented as of this encounter
[2024-07-03 11:32] LABS: Alanine Aminotransferase 40 U/L (6-35); Albumin Level 3.8 g/dL (3.5-5.1); Alkaline Phosphatase 139 U/L (38-126); Anion Gap 13 mmol/L (4-12); Aspartate Amino Transferase 38 U/L (14-36); Bilirubin,Total 0.8 mg/dL (0.2-1.3); Blood Urea Nitrogen 32 mg/dL (7-17); Calcium 8.6 mg/dL (8.4-10.2); Carbon Dioxide 18 mmol/L (22-30); Chloride 108 mmol/L (98-107); Estimated CRCL calculation 28 ml/min; Estimated Glomerular Filt Rate 31; Glucose 155 mg/dL (65-110); Potassium 4.2 mmol/L (3.4-5.0)
--- NOTE | 2024-07-03 13:14 | ED.GENADULT ---
HPI - General Adult General Chief complaint: Shortness of Breath/Dyspnea Stated complaint: sob Time Seen by Provider: 07/03/24 11:22 History of Present Illness HPI narrative: 68-year-old female present to the emergency department for evaluation for worsening shortness breath over the course of the last week. Patient does report she had an upper airway infection approximately 1 month ago. Patient reports increasing exertional shortness of breath. Patient does feel short of breath at rest as well. Patient did have a a CABG approximately 3 months ago at [facility] Related Data Home Medications ?Medication ?Instructions ?Recorded ?Confirmed ?Last Taken ?Type omeprazole 40 mg capsule,delayed 40 mg PO DAILY 06/18/19 07/03/24 07/02/24 History release diphenhydramine HCl 50 mg/30 mL 50 mg PO HS PRN Insomnia 02/29/24 07/03/24 07/02/24 History oral liquid (ZzzQuil) levothyroxine 75 mcg tablet 50 mcg PO DAILY 02/29/24 07/03/24 07/02/24 History amlodipine 5 mg tablet 5 mg PO 04/25/24 04/25/24 07/02/24 History clopidogrel 75 mg tablet 75 mg PO DAILY 04/25/24 07/03/24 07/02/24 History losartan 25 mg tablet 25 mg PO DAILY 04/25/24 07/03/24 07/02/24 History metoprolol tartrate 25 mg tablet 12.5 mg PO Q1D 04/25/24 07/03/24 07/02/24 History sennosides 8.6 mg-docusate sodium PO 04/25/24 04/25/24 07/02/24 History 50 mg tablet (Stimulant Laxative Plus) Allergies Allergy/AdvReac Type Severity Reaction Status Date / Time morphine Allergy Severe Other Verified 04/25/24 10:53 codeine Allergy Intermediate Chest Pain Verified 04/25/24 10:53 Review of Systems Review of Systems: All systems reviewed & are unremarkable except as noted in HPI and below PMFSH Past Medical History Medical History Essential (primary) hypertension History of myocardial infarction Atherosclerotic heart disease of tribe coronary artery without angina pectoris ST elevation [place] (STEMI) Depression Anxiety SLE (systemic lupus erythematosus related syndrome) Hypothyroidism Diabetes type 2, controlled GERD (gastroesophageal reflux disease) Chronic back pain Irritable bowel syndrome Fibromyalgia Major depressive disorder Hypothyroidism Erosive esophagitis Osteoarthritis Hyperlipidemia Surgical History Surgical History History of coronary artery bypass graft History of History of appendectomy History of section 1980, 1987 History of abdominal surgery adhesion removal 1979 History of foot surgery fallen arch repair left 1972 Hx of varicose vein stripping around uterus Family History Family History Father Diabetes mellitus Acute myocardial infarction Hypertension Cerebrovascular accident Hypercholesteremia Heart disease Mother Acute myocardial infarction Heart disease Grandparent No problems noted. Social History Social History Smoking packs per day: 1 Smoking cigarettes per day: 20.0 Years smoked: 5 Smoking pack-years: 5.00 Smoking status: Former smoker Tobacco type: cigarettes Second hand tobacco smoke exposure: No Alcohol intake: never Substance use: never Substance use type: does not use Do You Feel Safe in your Home?: Yes Lack of Transportation: No Lack of Food: Never True Current Housing: I Have Housing Concerned About Future Housing: No Difficulty Paying Gas/Electric Bills: No Difficulty Paying for Meds: No Currently Unemployed: No Education: Associate Degree Difficulty w/ Childcare or Family Care: No Living arrangements: with family Occupation/Education: occupation Gender identity (if verbalized by the patient): Female Sexual Orientation (if Verbalized by the Patient): Straight or Heterosexual Spiritual care concerns: Yes (Taoism) Exam Narrative: APPEARANCE: Well appearing, no pain, no distress, well-nourished. HEAD: normocephalic, atraumatic. EYES: PERRLA/EOMI, conjunctivae clear. NOSE: Normal no drainage EARS:TMS clear with good light reflex. THROAT: Pharynx clear, no exudate. NECK: Supple. No adenopathy, no masses. RESPIRATORY: Airway patent, respirations nonlabored. Clear to auscultation bilaterally, no rales, rhonchi, wheezing. CARDIOVASCULAR: Regular rate and rhythm without murmurs rubs or gallops. ABDOMINAL: Soft, nontender, nondistended, normal bowel sounds MUSCULOSKELETAL: Moves all extremities. Strength/ROM intact, No edema, No calf tenderness. NEURO: Alert. Cranial nerves II through XII intact. Grossly Course Vital Signs Vital signs: Vital Signs Temperature 97.8 F 07/03/24 10:21 Pulse Rate 66 07/03/24 10:21 Respiratory Rate 18 07/03/24 10:21 Blood Pressure 160/81 H 07/03/24 10:21 Pulse Oximetry 100 07/03/24 10:21 Oxygen Delivery Room Air 07/03/24 10:21 Temperature 97.6 F 07/03/24 10:54 Pulse Rate 67 07/03/24 16:18 Respiratory Rate 20 07/03/24 16:18 Blood Pressure 182/86 H 07/03/24 16:18 Pulse Oximetry 98 07/03/24 16:18 Oxygen Delivery Room Air 07/03/24 10:54 Medical Decision Making MDM Narrative Medical decision making narrative: 68-year-old female present to the emergency department for evaluation for worsening shortness breath over the course of the last 3 days. Patient was afebrile with no leukocytosis and a hemoglobin of 9.9 which is similar to her baseline. Patient did have an elevated D-dimer of 1.41, CTA was ordered to evaluate for pulmonary embolism this was negative for PE but did show cardiomegaly and pulmonary edema consistent with CHF. Patient's creatinine was 1.6 which is similar to her baseline. Patient does have an elevated BNP of greater than 30,000. Patient was negative for influenza RSV and for COVID. Patient does have a low EF her EMR. Patient was unaware for diagnosis of CHF. Patient was ambulated in the emergency department and did desat to the mid 80s with ambulation. Patient does not have oxygenation at home. Case was discussed with the hospitalist patient was accepted for admission. Patient was treated with IV Lasix prior to admission. Differential Diagnosis Differential Diagnosis: Pneumonia, COVID, RSV, influenza, CHF, COPD Vital Signs Vital Signs: Vital Signs Temperature 97.8 F 07/03/24 10:21 Pulse Rate 66 07/03/24 10:21 Respiratory Rate 18 07/03/24 10:21 Blood Pressure 160/81 H 07/03/24 10:21 Pulse Oximetry 100 07/03/24 10:21 Oxygen Delivery Room Air 07/03/24 10:21 Temperature 97.6 F 07/03/24 10:54 Pulse Rate 67 07/03/24 16:18 Respiratory Rate 20 07/03/24 16:18 Blood Pressure 182/86 H 07/03/24 16:18 Pulse Oximetry 98 07/03/24 16:18 Oxygen Delivery Room Air 07/03/24 10:54 Lab Data Lab results reviewed: Yes I reviewed the patient's lab results. 07/03/24 10:37 07/03/24 10:37 Labs: Lab Results 07/03/24 07/03/24 Range/Units 10:37 13:47 WBC 7.6 (4.5-10.0) K/mm3 RBC 3.64 L (4.2-5.4) M/mm3 Hgb 9.9 L (12.0-15.0) g/dL Hct 31.0 L (37.0-47.0) % MCV 85.2 (80-100) fl MCH 27.2 (26-34) pg MCHC 31.9 L (32-36) g/dl RDW 14.1 (11.5-14.5) % Plt Count 349 (150-375) k/mm3 MPV 10.1 (7.4-10.4) fl Immature Gran % (Auto) 0.4 (0-0.5) % Neut % (Auto) 68.6 (45.5-73.1) % Lymph % (Auto) 17.6 L (18.3-44.2) % Steele % (Auto) 8.9 H (2.6-8.5) % Eos % (Auto) 3.2 (0-4.4) % Baso % (Auto) 1.3 H (0.2-1.2) % Lymph # (Auto) 1.33 (0.9-3.2) K/mm3 Steele # (Auto) 0.7 H (0.1-0.6) K/mm3 Eos # (Auto) 0.2 (0-0.3) K/mm3 Baso # (Auto) 0.1 (0.0-0.1) K/mm3 Abs Immat Gran (auto) 0.03 (0.00-0.031) K/mm3 Absolute Neuts (auto) 5.2 (1.3-6.7) K/mm3 Absolute Nucleated RBC 0.000 (0.0-0.012) K/mm3 Nucleated RBC % 0.0 (0.0-0.2) % D-Dimer 1.41 H (<0.48) ug/mL Sodium 139 (137-145) mmol/L Potassium 4.2 (3.4-5.0) mmol/L Chloride 108 H (98-107) mmol/L Carbon Dioxide 18 L (22-30) mmol/L Anion Gap 13 H (4-12) mmol/L BUN 32 H (7-17) mg/dL Creatinine 1.66 H (0.7-1.0) mg/dL Estim Creat Clear Calc 28 ml/min Estimated GFR 31 L (59 - ) Glucose 155 H (65-110) mg/dL Calcium 8.6 (8.4-10.2) mg/dL Total Bilirubin 0.8 (0.2-1.3) mg/dL AST 38 H (14-36) U/L ALT 40 H (6-35) U/L Alkaline Phosphatase 139 H (38-126) U/L NT-Pro-B Natriuret Pep > 08516 H (19.9-100) pg/mL Total Protein 7.0 (6.3-8.2) g/dL Albumin 3.8 (3.5-5.1) g/dL Influenza A (RT-PCR) Negative (Negative) Influenza B (RT-PCR) Negative (Negative) RSV (RT-PCR) Negative (Negative) SARS-CoV-2 RNA (RT-PCR) Negative (Negative) Imaging Data Radiologist's impression: Impressions Chest X-Ray 07/03/24 11:01 Impression: Clear lungs. Stable cardiomegaly, status post CABG. Chest CTA 07/03/24 15:26 IMPRESSION: 1. No pulmonary embolism. 2. Likely congestive heart failure with cardiomegaly, mild pulmonary edema and small bilateral pleural effusions. Discharge Plan Discharge Clinical Impression: Acute exacerbation of CHF (congestive heart failure), Hypoxia Patient Disposition: Still a Patient Condition: Serious
[2024-07-03] MEDS: ALBUTEROL SULFATE NEB 2.5 MG/3 ML INH INHALATION (13:25)
[2024-07-03 14:21] LABS: D Dimer 1.41 ug/mL (<0.48)
[2024-07-03 14:22] LABS: NT Pro B Type Natriuretic Pept > 30000 pg/mL (19.9-100)
[2024-07-03 14:32] LABS: Influenza A QL RT-PCR Negative (Negative); Influenza B QL RT-PCR Negative (Negative); RSV RNA, RT-PCR Negative (Negative); SARS-CoV-2 RNA PCR Negative (Negative)
--- NOTE | 2024-07-03 15:57 | PC.NURSE ---
Patient walked with pulse ox; sat dropped to 86% and returned to 94% upon being reconnected to the monitor in the room.
[2024-07-03] MEDS: FUROSEMIDE INJ 40 MG/4 ML VIAL IV PUSH ×2 (16:54→20:18)
--- NOTE | 2024-07-03 18:13 | PC.NURSE ---
This patient, Sharmila Vences, was admitted to Medical Room 342-01. Patient/family oriented to hospital policies and general routines including ID bracelet, bed and alarms, visiting hours, pain management, procedures, bathroom and other care routines, personal items, smoking policy, room service/diet, and visiting hours. Information on how to activate the Rapid Response Team has been discussed. Patient/Family are encouraged to report perceived risks to care and to ask questions if they do not understand what they are told or what they should do.
[2024-07-04] VITALS (13 sets, daily range): BP systolic 150–193; BP diastolic 78–96; PULSE 58–68; RESP 16–18; TEMP 36.1–36.5; O2SAT 97; BMI 24.5
--- NOTE | 2024-07-04 08:04 | PC.NURSE ---
Patient off of unit to CT scan
[2024-07-04 08:41] LABS: Basophils Absolute Auto 0.1 K/mm3 (0.0-0.1); Basophils Percent Auto 1.5 % (0.2-1.2); Eosinophils Absolute Auto 0.4 K/mm3 (0-0.3); Eosinophils Percent Auto 5.7 % (0-4.4); Hematocrit 33.4 % (37.0-47.0); Hemoglobin 10.7 g/dL (12.0-15.0); Immature Granulocyte Absolute 0.03 K/mm3 (0.00-0.031); Immature Granulocyte Percent A 0.4 % (0-0.5); Lymphocytes Absolute Auto 1.27 K/mm3 (0.9-3.2); Lymphocytes Percent Auto 17.1 % (18.3-44.2); Mean Corpuscular Hemoglobin 27.3 pg (26-34); Mean Corpuscular Volume 85.2 fl (80-100); Mean Platelet Volume 9.7 fl (7.4-10.4); Monocytes Absolute Auto 0.8 K/mm3 (0.1-0.6); Monocytes Percent Auto 10.2 % (2.6-8.5); Neutrophils Absolute Auto 4.8 K/mm3 (1.3-6.7); Neutrophils Percent Auto 65.1 % (45.5-73.1); Platelet Count Result 372 k/mm3 (150-375); Red Blood Count 3.92 M/mm3 (4.2-5.4); Red Cell Distribution Width 14.4 % (11.5-14.5); White Blood Count 7.4 K/mm3 (4.5-10.0)
[2024-07-04 08:57] LABS: Alanine Aminotransferase 37 U/L (6-35); Albumin Level 4.1 g/dL (3.5-5.1); Alkaline Phosphatase 145 U/L (38-126); Anion Gap 14 mmol/L (4-12); Aspartate Amino Transferase 32 U/L (14-36); Blood Urea Nitrogen 26 mg/dL (7-17); Calcium 9.7 mg/dL (8.4-10.2); Carbon Dioxide 24 mmol/L (22-30); Chloride 104 mmol/L (98-107); Estimated CRCL calculation 27 ml/min; Estimated Glomerular Filt Rate 31; Glucose 121 mg/dL (65-110); Magnesium 1.7 mg/dL (1.6-2.3); Sodium 142 mmol/L (137-145)
[2024-07-04] MEDS: PANTOPRAZOLE 40 MG TABLET PO ×2 (09:06→20:57)
[2024-07-04] MEDS: ASPIRIN 81 MG ENTERIC TABLET PO (09:06)
[2024-07-04] MEDS: FLUoxetine HCL 20 MG CAPSULE 40 MG PO (09:06)
[2024-07-04] MEDS: LEVOTHYROXINE SODIUM 50 MCG TABLET PO (09:06)
[2024-07-04] MEDS: amLODIPine BESYLATE 5 MG TABLET PO (09:06)
[2024-07-04] MEDS: CLOPIDOGREL BISULFATE 75 MG TABLET PO (09:06)
[2024-07-04] MEDS: LOSARTAN POTASSIUM 25 MG TABLET PO (09:06)
[2024-07-04] MEDS: FUROSEMIDE INJ 40 MG/4 ML VIAL IV PUSH ×2 (09:07→20:57)
[2024-07-04] MEDS: METOPROLOL TARTRATE 12.5 MG TABLET PO (09:09)
[2024-07-04] MEDS: SPIRONOLACTONE 25 MG TABLET PO (09:09)
--- NOTE | 2024-07-04 10:21 | P.HP_ITS ---
H&P: HPI History of Present Illness Date/Time: 07/04/24 10:21 Chief Complaint: Shortness of breath. Narrative: Patient is a 68 year old female that came to the ER with shortness of breath and legs feeling limp. Patient reports that she was unable to attend cardiac rehab this week. Patient reports she had a 4 vessel CABG three months ago and has not been doing well since. Patient had a 4 vessel CABG on 03/23/24 with SUTTON to mid LAD, radial artery to the OM, SVG to the diagonal and distal LAD in a sequential fashion by Dr. Ibarra per singer and unloader Dr. Hall note. Patient denies chest pain, shortness of breath, nausea, or vomiting. Patient reports a headache that is a 3 , frequent, and aching. Patient reports taking Zyrtec at home for allergies. Afebrile with no leukocytosis, hemoglobin 9.9 which is similar to baseline. D- dimer 1.41, CTA was negative for PE but did show cardiomegaly and pulmonary edema consistent with CHF. LE dopplers negative for a DVT. Patient's creatinine was 1.6 which is similar to her baseline. Patient does have an elevated BNP of greater than 30,000. Patient was negative for influenza, RSV, and for COVID. Patient has a low LVEF of 40% on 03/21/24 per EMR, patient was unaware for diagnosis of CHF. Patient desatted in the ER into the mid 80's. Currently Sa02 97% on RA. ECG showed Sinus tracy 59 with possible anterior infarct, probably old, QTc 476. Review of Systems Review of Systems: All systems reviewed & are unremarkable except as noted in HPI and below [facility] Past Medical History Medical History Essential (primary) hypertension History of myocardial infarction Atherosclerotic heart disease of [place] coronary artery without angina pectoris ST elevation [place] (STEMI) Depression Anxiety SLE (systemic lupus erythematosus related syndrome) Hypothyroidism Diabetes type 2, controlled GERD (gastroesophageal reflux disease) Chronic back pain Irritable bowel syndrome Fibromyalgia Major depressive disorder Hypothyroidism Erosive esophagitis Osteoarthritis Hyperlipidemia Surgical History Surgical History History of coronary artery bypass graft History of History of appendectomy History of section 1980, 1987 History of abdominal surgery adhesion removal 1979 History of foot surgery fallen arch repair left 1973 Hx of varicose vein stripping around uterus Family History Family History Father Diabetes mellitus Acute myocardial infarction Hypertension Cerebrovascular accident Hypercholesteremia Heart disease Mother Acute myocardial infarction Heart disease Grandparent No problems noted. Social History Social History Smoking packs per day: 1 Smoking cigarettes per day: 20.0 Years smoked: 5 Smoking pack-years: 5.00 Smoking status: Former smoker Tobacco type: cigarettes Second hand tobacco smoke exposure: No Alcohol intake: never Substance use: never Substance use type: does not use Do You Feel Safe in your Home?: Yes Lack of Transportation: No Lack of Food: Never True Current Housing: I Have Housing Concerned About Future Housing: No Difficulty Paying Gas/Electric Bills: No Difficulty Paying for Meds: No Currently Unemployed: No Education: Associate Degree Difficulty w/ Childcare or Family Care: No Living arrangements: with family Occupation/Education: occupation Gender identity (if verbalized by the patient): Female Sexual Orientation (if Verbalized by the Patient): Straight or Heterosexual Spiritual care concerns: No Meds Home Medications and Allergies Home Medications ?Medication ?Instructions ?Recorded ?Confirmed ?Type omeprazole 40 mg capsule,delayed 40 mg PO DAILY 06/18/19 07/03/24 History release diphenhydramine HCl 50 mg/30 mL 50 mg PO HS PRN Insomnia 02/29/24 07/03/24 History oral liquid (ZzzQuil) levothyroxine 75 mcg tablet 50 mcg PO DAILY 02/29/24 07/03/24 History aspirin 81 mg tablet,delayed 81 mg PO QAM 30 days #30 tabs 03/01/24 07/03/24 Rx release atorvastatin 40 mg tablet 80 mg (2 x 40 mg) PO DAILY 30 days 03/01/24 07/03/24 Rx #60 tabs spironolactone 25 mg tablet 25 mg PO QAM #90 tabs 03/02/24 07/03/24 Rx amlodipine 5 mg tablet 5 mg PO DAILY 04/25/24 07/03/24 History clopidogrel 75 mg tablet 75 mg PO DAILY 04/25/24 07/03/24 History losartan 25 mg tablet 25 mg PO DAILY 04/25/24 07/03/24 History metoprolol tartrate 25 mg tablet 12.5 mg PO Q1D 04/25/24 07/03/24 History sennosides 8.6 mg-docusate sodium 1 tab-cap PO DAILY PRN constipation 04/25/24 07/03/24 History 50 mg tablet (Stimulant Laxative Plus) fluoxetine 40 mg capsule 40 mg PO DAILY #90 caps 04/27/24 07/03/24 Rx Allergies Allergy/AdvReac Type Severity Reaction Status Date / Time morphine Allergy Severe Other Verified 04/25/24 10:53 codeine Allergy Intermediate Chest Pain Verified 04/25/24 10:53 Vital Signs Vital Signs - 24 hr 07/03/24 10:54 07/03/24 10:54 07/03/24 13:26 Temperature 97.6 F Pulse Rate 57 L 61 Respiratory Rate 19 19 Blood Pressure 171/78 H Pulse Oximetry 96 100 Oxygen Delivery Room Air Room Air 07/03/24 13:33 07/03/24 14:49 07/03/24 16:18 Temperature Pulse Rate 59 L 65 67 Respiratory Rate 19 18 20 Blood Pressure 183/85 H 182/86 H Pulse Oximetry 100 98 Oxygen Delivery 07/03/24 18:52 07/03/24 20:00 07/03/24 20:00 Temperature 98.0 F Pulse Rate 64 Respiratory Rate Blood Pressure Pulse Oximetry Oxygen Delivery Room Air 07/03/24 20:06 07/04/24 00:00 07/04/24 04:00 Temperature 97 F L Pulse Rate 63 66 67 Respiratory Rate 18 Blood Pressure 173/79 H Pulse Oximetry 96 Oxygen Delivery 07/04/24 05:12 07/04/24 09:05 07/04/24 09:09 Temperature 97.7 F Pulse Rate 66 68 Respiratory Rate 18 Blood Pressure 160/87 H 193/86 H Pulse Oximetry 97 Oxygen Delivery 07/04/24 09:16 07/04/24 09:16 Temperature Pulse Rate 64 Respiratory Rate Blood Pressure Pulse Oximetry Oxygen Delivery Room Air Exam Const: General: no acute distress and uncomfortable Eyes: Sclera: sclerae normal Pupils: Equal, round and reactive pupils present Resp: Effort & Inspection: normal respiratory effort Other: Slightly diminished throughout. Cardio: Rate: regular rate Rhythm: regular rhythm Other: Telemetry- SR 60. GI: GI Palp: Yes Soft to palpation Auscultation: normal bowel sounds : Other: Voiding without difficulty Skin: General skin exam: no rashes or lesions noted Neuro: Speech: normal speech Extrem: General: pedal edema on the right (trace edema. ) Psych: Mental Status: mental status grossly normal Affect: normal affect H&P: Results Labs Labs: Short CBC 07/03/24 07/04/24 Range/Units 10:37 08:31 WBC 7.6 7.4 (4.5-10.0) K/mm3 Hgb 9.9 L 10.7 L (12.0-15.0) g/dL Hct 31.0 L 33.4 L (37.0-47.0) % Plt Count 349 372 (150-375) k/mm3 BMP 07/03/24 07/04/24 10:37 08:31 Sodium 139 142 Potassium 4.2 4.0 Chloride 108 H 104 Carbon Dioxide 18 L 24 BUN 32 H 26 H Creatinine 1.66 H 1.62 H Glucose 155 H 121 H Calcium 8.6 9.7 Liver Function 07/03/24 07/04/24 Range/Units 10:37 08:31 Total Bilirubin 0.8 1.0 (0.2-1.3) mg/dL AST 38 H 32 (14-36) U/L ALT 40 H 37 H (6-35) U/L Alkaline Phosphatase 139 H 145 H (38-126) U/L Albumin 3.8 4.1 (3.5-5.1) g/dL Assessment and Plan Assessment and plan (1) Acute exacerbation of CHF (congestive heart failure): Code(s): I50.9 - Heart failure, unspecified Status: Acute Assessment and Plan: * BNP > 30,000 * Furosemide 40 meq IVP q 12 and Spironolactone 25 mg PO qam. * Telemetry- SR 60. * Daily weights. * Cardiology consult. * Stop Amlodipine 5 mg PO daily to allow optimization of heart failure GDMT. * Stop Losartan 25 mg PO daily, start Entresto 24/26 mg PO BID. * Stop Metoprolol 12.5 mg PO daily, switch to Coreg given elevated blood pressures. * Add Jardiance 10 mg PO daily. * monitor labs. (2) History of myocardial infarction: Code(s): I25.2 - Old myocardial infarction Status: Acute Assessment and Plan: * Inferior STEMI on 02/29/24. * Aspirin EC 81 mg PO daily and Plavix 75 mg PO daily. (3) History of coronary artery bypass graft: Code(s): Z95.1 - Presence of aortocoronary bypass graft Status: Acute Assessment and Plan: * CABG 4 vessel on 03/23/24 * Has been attending cardiac rehab outpatient. * Aspirin EC 81 mg PO daily and Plavix 75 mg PO daily. (4) Essential (primary) hypertension: Code(s): I10 - Essential (primary) hypertension Status: Acute Assessment and Plan: * Stop Amlodipine 5 mg PO daily to allow optimization of heart failure GDMT. * Stop Losartan 25 mg PO daily, start Entresto 24/26 mg PO BID. * Stop Metoprolol 12.5 mg PO daily, switch to Coreg given elevated blood pressures. * Continue Spironolactone 25 mg PO qam. * Add Jardiance 10 mg PO daily. * Blood pressure 162/96. (5) Hypothyroidism: Code(s): E03.9 - Hypothyroidism, unspecified Status: Acute Assessment and Plan: * Levothyroxine 50 mcg PO daily. (6) GERD (gastroesophageal reflux disease): Code(s): K21.9 - Gastro-esophageal reflux disease without esophagitis Status: Acute Assessment and Plan: * Pantoprazole 40 mg PO q 12. (7) Allergic rhinitis: Code(s): J30.9 - Allergic rhinitis, unspecified Status: Acute Assessment and Plan: * Loratadine 10 mg PO daily. Quality VTE Prophylaxis VTE prophylaxis: mechanical ordered Hospitalist MIPS Advance Care Plan I have confirmed that the patient's Advanced Care Plan is present, code status is documented, or surrogate decision maker is listed in patient medical record.: Yes Medication Reconciliation I have utilized all available resources to obtain, update and review the patients current medications (includes all prescriptions, OTC, herbals, cannabis, and nutritional supplements).: Yes
--- NOTE | 2024-07-04 14:27 | PM.CNCAR ---
Assessment and Plan Assessment and plan (1) Acute on chronic heart failure with mildly reduced ejection fraction (HFmrEF, 41-49%): Code(s): I50.23 - Acute on chronic systolic (congestive) heart failure Status: Acute Plan 1. Acute on chronic heart failure with mildly reduced LVEF of 40% per TTE 03/21/2024 2. Coronary artery disease. Inferior STEMI on 02/29/2024 s/p TESSA to the RCA extending to the RPLV branch. S/p 4V CABG on 03/23/2024 with SUTTON to the LAD, radial artery to the OM, SVG to the diagonal and distal LAD in a sequential fashion. 3. Hypertension 4. Hyperlipidemia 5. Chronic kidney disease 6. GERD 7. Hypothyroidism 8. Crohn's disease PLAN: -Continue IV Lasix for now. Please monitor strict I/Os. -Obtain TTE to reassess LVEF. -Stop Amlodipine to allow optimization of heart failure GDMT. -Stop Losartan. Start Entresto 24/26mg BID. -Continue Spironolactone. -On Toprol 25mg once daily at home. Stop Toprol and switch to Coreg instead given elevated blood pressures -Start Jardiance 10mg once daily. -If her blood pressure is uncontrolled despite maximal doses of heart failure GDMT, then can add back on Amlodipine. However, prefer to maximize doses of heart failure meds first. -Continue ASA, Plavix for CAD. I stopped her statin as outpatient due to statin myalgias and statin intolerance. We are working on obtaining Repatha for her as outpatient. History of Present Illness History of Present Illness Consult date/time: 07/04/24 14:27 Requesting physician: Ester Sousa APRN Consult reason: congestive heart failure Reason For Visit: CHF Exacerbation Narrative: Sharmila is a patient of [facility] [employer] with the following history: 1. Coronary artery disease. Inferior STEMI on 02/29/2024 s/p TESSA to the RCA extending to the RPLV branch. S/p 4V CABG on 03/23/2024 with SUTTON to the LAD, radial artery to the OM, SVG to the diagonal and distal LAD in a sequential fashion. 2. Heart failure with LVEF of 40% per TTE 03/21/2024 3. Hypertension 4. Hyperlipidemia 5. Chronic kidney disease 6. GERD 7. Hypothyroidism 8. Crohn's disease Sharmila presented with worsening dyspnea on exertion. No chest pain. NT pro BNP is >30,000. CXR showed clear lungs. However, CTA shows mild pulmonary edema and small bilateral pleural effusions. EKG shows sinus rhythm, T-wave abnormality in the high lateral leads that is unchanged from before. She has been started on IV Lasix and reports symptomatic improvement. Review of Systems Review of Systems: All systems reviewed & are unremarkable except as noted in HPI and below (HPI) [facility] Past Medical History Medical History Essential (primary) hypertension History of myocardial infarction Atherosclerotic heart disease of [place] coronary artery without angina pectoris ST elevation [place] (STEMI) Depression Anxiety SLE (systemic lupus erythematosus related syndrome) Hypothyroidism Diabetes type 2, controlled GERD (gastroesophageal reflux disease) Chronic back pain Irritable bowel syndrome Fibromyalgia Major depressive disorder Hypothyroidism Erosive esophagitis Osteoarthritis Hyperlipidemia Surgical History Surgical History History of coronary artery bypass graft History of History of appendectomy History of section 1980, 1987 History of abdominal surgery adhesion removal 1979 History of foot surgery fallen arch repair left 1972 Hx of varicose vein stripping around uterus Family History Family History Father Diabetes mellitus Acute myocardial infarction Hypertension Cerebrovascular accident Hypercholesteremia Heart disease Mother Acute myocardial infarction Heart disease Grandparent No problems noted. Social History Social History Smoking packs per day: 1 Smoking cigarettes per day: 20.0 Years smoked: 5 Smoking pack-years: 5.00 Smoking status: Former smoker Tobacco type: cigarettes Second hand tobacco smoke exposure: No Alcohol intake: never Substance use: never Substance use type: does not use Do You Feel Safe in your Home?: Yes Lack of Transportation: No Lack of Food: Never True Current Housing: I Have Housing Concerned About Future Housing: No Difficulty Paying Gas/Electric Bills: No Difficulty Paying for Meds: No Currently Unemployed: No Education: Associate Degree Difficulty w/ Childcare or Family Care: No Living arrangements: with family Occupation/Education: occupation Gender identity (if verbalized by the patient): Female Sexual Orientation (if Verbalized by the Patient): Straight or Heterosexual Spiritual care concerns: No Meds Home Medications and Allergies Home Medications ?Medication ?Instructions ?Recorded ?Confirmed ?Type omeprazole 40 mg capsule,delayed 40 mg PO DAILY 06/18/19 07/03/24 History release diphenhydramine HCl 50 mg/30 mL 50 mg PO HS PRN Insomnia 02/29/24 07/03/24 History oral liquid (ZzzQuil) levothyroxine 75 mcg tablet 50 mcg PO DAILY 02/29/24 07/03/24 History aspirin 81 mg tablet,delayed 81 mg PO QAM 30 days #30 tabs 03/01/24 07/03/24 Rx release atorvastatin 40 mg tablet 80 mg (2 x 40 mg) PO DAILY 30 days 03/01/24 07/03/24 Rx #60 tabs spironolactone 25 mg tablet 25 mg PO QAM #90 tabs 03/02/24 07/03/24 Rx amlodipine 5 mg tablet 5 mg PO DAILY 04/25/24 07/03/24 History clopidogrel 75 mg tablet 75 mg PO DAILY 04/25/24 07/03/24 History losartan 25 mg tablet 25 mg PO DAILY 04/25/24 07/03/24 History metoprolol tartrate 25 mg tablet 12.5 mg PO Q1D 04/25/24 07/03/24 History sennosides 8.6 mg-docusate sodium 1 tab-cap PO DAILY PRN constipation 04/25/24 07/03/24 History 50 mg tablet (Stimulant Laxative Plus) fluoxetine 40 mg capsule 40 mg PO DAILY #90 caps 04/27/24 07/03/24 Rx Allergies Allergy/AdvReac Type Severity Reaction Status Date / Time morphine Allergy Severe Other Verified 04/25/24 10:53 codeine Allergy Intermediate Chest Pain Verified 04/25/24 10:53 Vital Signs Vital Signs - 24 hr 07/03/24 14:49 07/03/24 16:18 07/03/24 18:52 Temperature 36.7 C Pulse Rate 65 67 Respiratory Rate 18 20 Blood Pressure 183/85 H 182/86 H Pulse Oximetry 100 98 Oxygen Delivery 07/03/24 20:00 07/03/24 20:00 07/03/24 20:06 Temperature 36.1 C L Pulse Rate 64 63 Respiratory Rate 18 Blood Pressure 173/79 H Pulse Oximetry 96 Oxygen Delivery Room Air 07/04/24 00:00 07/04/24 04:00 07/04/24 05:12 Temperature 36.5 C Pulse Rate 66 67 66 Respiratory Rate 18 Blood Pressure 160/87 H Pulse Oximetry 97 Oxygen Delivery 07/04/24 09:05 07/04/24 09:09 07/04/24 09:16 Temperature Pulse Rate 68 Respiratory Rate Blood Pressure 193/86 H Pulse Oximetry Oxygen Delivery Room Air 07/04/24 09:16 07/04/24 12:00 Temperature Pulse Rate 64 61 Respiratory Rate Blood Pressure Pulse Oximetry Oxygen Delivery Exam Const: General: comfortable and no acute distress HENMT: Mouth: Yes moist mucous membranes Eyes: General: appearance normal, both eyes and all related structures Sclera: sclerae normal Resp: Effort & Inspection: normal respiratory effort Auscultation: diminished lung sounds Other: No lower extremity edema Cardio: Rate: regular rate Rhythm: regular rhythm Heart sounds: no murmurs Skin: General skin exam: normal color Neuro: Speech: normal speech Psych: Mental Status: mental status grossly normal Affect: normal affect Results Labs and Meds 07/04/24 08:31 07/04/24 08:31 Lab results: Cardiac Enzymes 07/04/24 Range/Units 08:31 AST 32 (14-36) U/L CBC 07/04/24 Range/Units 08:31 WBC 7.4 (4.5-10.0) K/mm3 RBC 3.92 L (4.2-5.4) M/mm3 Hgb 10.7 L (12.0-15.0) g/dL Hct 33.4 L (37.0-47.0) % Plt Count 372 (150-375) k/mm3 Lymph # (Auto) 1.27 (0.9-3.2) K/mm3 Saunders # (Auto) 0.8 H (0.1-0.6) K/mm3 Eos # (Auto) 0.4 H (0-0.3) K/mm3 Baso # (Auto) 0.1 (0.0-0.1) K/mm3 Comprehensive Metabolic Panel 07/04/24 Range/Units 08:31 Sodium 142 (137-145) mmol/L Potassium 4.0 (3.4-5.0) mmol/L Chloride 104 (98-107) mmol/L Carbon Dioxide 24 (22-30) mmol/L BUN 26 H (7-17) mg/dL Creatinine 1.62 H (0.7-1.0) mg/dL Glucose 121 H (65-110) mg/dL Calcium 9.7 (8.4-10.2) mg/dL AST 32 (14-36) U/L ALT 37 H (6-35) U/L Alkaline Phosphatase 145 H (38-126) U/L Total Protein 8.0 (6.3-8.2) g/dL Albumin 4.1 (3.5-5.1) g/dL Intake and Output 07/03/24 07/04/24 07/04/24 23:59 07:59 15:59 Intake Total 150 360 Output Total 750 1250 800 Balance -750 -1100 -440 Intake: Oral 150 360 Output: Urine 750 1250 800
[2024-07-04] MEDS: EMPAGLIFLOZIN 10 MG TABLET PO (17:17)
[2024-07-04] MEDS: carvediloL 6.25 MG TABLET PO (20:57)
[2024-07-04] MEDS: ACETAMINOPHEN 325 MG TABLET 650 MG PO (20:57)
[2024-07-04] MEDS: SACUBITRIL/VALSARTAN 24-26 MG TABLET 1 TAB PO (20:57)
[2024-07-05] VITALS (11 sets, daily range): BP systolic 113–170; BP diastolic 61–76; PULSE 60–74; RESP 14–18; TEMP 36.4–36.8; O2SAT 91–94
--- NOTE | 2024-07-05 | ECHO_ITS ---
Patient Info Name: Sharmila Vences Age: 68 years : 1955 Gender: Female Ht: 66 in Wt: 151 lbs BSA: 1.79 m2 HR: 65 bpm BP: 170 / 76 mmHg Technical Quality: Poor Exam Date: 07/05/2024 9:15 AM Exam Location: Echo Lab Patient Status: Inpatient Admit Date: 07/04/2024 Staff Ordering Physician: Allan Hall MD ([email or web address]) [id number] Programmer: Chelita Null RDCS Attending Provider: Boom Shirley MD Referring Physician: Rafael GLASS; Exam Type: CA echo dop color flow w con Study Info Indications - CHF EXACERBATION - EVALUATE LVEF Complete two-dimensional, color flow and Doppler transthoracic echocardiogram is performed with contrast to opacify the left ventricle and to improve the deliniation of the left ventricle endocardial borders. Contrast/Agitated Saline Contrast/Ag. Saline: Definity Amount: 2.00 ml Existing IV Access: Yes Reason for Poor Study: poor echocardiographic windows Summary 1. The left ventricle is normal in size with severely reduced systolic function. There is severe concentric left ventricular hypertrophy. The left ventricular ejection fraction is visually estimated to be 30-35%. 2. The right ventricle is normal in size with mildly reduced systolic function. Left Ventricle The left ventricle is normal in size with severely reduced systolic function. There is severe concentric left ventricular hypertrophy. The left ventricular ejection fraction is visually estimated to be 30-35%. There is no left ventricular thrombus noted on the contrast views. Right Ventricle The right ventricle is normal in size with mildly reduced systolic function. Left Atria The left atrium is mildly dilated. Right Atria The right atrium is normal size. Atrial Septum The atrial septum visually appears intact. Aortic Valve The aortic valve is probable trileaflet and opens well. There is trace aortic regurgitation. Pulmonic Valve The pulmonic valve is grossly normal. There is no pulmonic valve regurgitation in this study. Mitral Valve The mitral valve is normal. There is no mitral regurgitation. Tricuspid Valve The tricuspid valve is normal. There is trace tricuspid regurgitation. Pericardium/Pleural Pericardium is normal in appearance with no evidence for significant pericardial effusion. Inferior Vena Cava Normal inferior vena cava with >50% collapse upon inspiration consistent with normal right atrial pressure, 3 mmHg. Aorta The aortic root at the level of the sinus of Valsalva measures 2.7 cm in diameter. Left Ventricular Outflow Tract Name Value Normal LVOT 2D LVOT Diameter 1.92 cm LVOT Doppler LVOT Peak Gradient 2 mmHg LVOT Mean Gradient 1 mmHg LVOT VTI 15.62 cm LVOT VTI/AV VTI Ratio 0.67 LVOT Stroke Volume 45.19 ml LVOT CO 2.90 l/min LVOT CI 1.61 L/min/m2 Pulmonic Valve Name Value Normal RVOT Doppler RVOT Peak Gradient 1 mmHg PV Doppler PV Peak Gradient 3 mmHg Mitral Valve Name Value Normal MV Doppler MV Decel [place] 214.69 cm/s2 MV PHT 0 s MV Area (PHT) 4.10 cm2 4.00-5.00 MV Diastolic Function MV E Peak Velocity 39.77 cm/s MV A Peak Velocity 72.82 cm/s MV E/A 0.55 MV Decel Time 0 s MV Annular TDI MV E/e' (Septal) 14.87 <=8.00 MV E/e' (Lateral) 8.85 <=8.00 MV E/e' (Average) 11.86 Tricuspid Valve Name Value Normal Estimated PAP/RSVP RA Pressure 3 mmHg <=5 Aortic Valve Name Value Normal AV Doppler AV Peak Velocity 120.48 cm/s AV Peak Gradient 6 mmHg AV Mean Gradient 3 mmHg AV VTI 23.44 cm AV Area (Cont Eq VTI) 1.93 cm2 >=3.00 AV Area (Cont Eq Dave) 1.88 cm2 AV Regurgitation 2D LVOT Area 2.89 cm2 Ventricles Name Value Normal LV Dimensions 2D/MM IVS Diastolic Thickness (2D) 1.94 cm 0.60-1.00 LVID Diastole (2D) 4.74 cm 3.80-5.20 LVIW Diastolic Thickness (2D) 1.40 cm 0.60-0.90 LVID Systole (2D) 3.75 cm 2.20-3.50 LVOT Diameter 1.92 cm LV Mass (2D Cubed) 350.30 g 67.00-162.00 LV Mass Index (2D Cubed) 0.02 g/cm2 0.00-0.01 Relative Wall Thickness (2D) 0.59 LV Fractional Shortening/Ejection Fraction 2D/MM LV Fractional Shortening (2D) 17 % 27-45 LV EF (2D Teicholz) 35 % 54-74 LV Diastolic Volume (4C MOD) 112.92 ml LV EF (4C MOD) 43 % LV Diastolic Volume (2C MOD) 111.65 ml LV EF (2C MOD) 50 % LV Diastolic Volume (BP MOD) 115.48 ml 46.00-106.00 LV Diastolic Volume Index (BP MOD) 0.06 l/m2 0.03-0.06 LV Systolic Volume (BP MOD) 62.12 ml 14.00-42.00 LV Systolic Volume Index (BP MOD) 0.03 l/m2 0.01-0.02 LV EF (BP MOD) 46 % 54-74 LV Diastolic Length (4C) 8.28 cm LV Systolic Length (4C) 7.28 cm LV Stroke Volume (4C MOD) 48.67 ml Atria Name Value Normal LA Dimensions LA Volume (4C A-L) 59.05 ml LA Volume (BP A-L) 69.77 ml RA Dimensions RA Area (4C) 17.70 cm2 <=18.00 Report Signatures
[2024-07-05] MEDS: LEVOTHYROXINE SODIUM 50 MCG TABLET PO (04:42)
[2024-07-05 05:54] LABS: Basophils Absolute Auto 0.1 K/mm3 (0.0-0.1); Basophils Percent Auto 1.3 % (0.2-1.2); Eosinophils Absolute Auto 0.6 K/mm3 (0-0.3); Hematocrit 36.7 % (37.0-47.0); Hemoglobin 11.6 g/dL (12.0-15.0); Immature Granulocyte Absolute 0.02 K/mm3 (0.00-0.031); Immature Granulocyte Percent A 0.3 % (0-0.5); Lymphocytes Percent Auto 19.2 % (18.3-44.2); Mean Corpuscular HGB Conc 31.6 g/dl (32-36); Mean Corpuscular Hemoglobin 26.5 pg (26-34); Mean Corpuscular Volume 83.8 fl (80-100); Mean Platelet Volume 9.7 fl (7.4-10.4); Monocytes Percent Auto 12.1 % (2.6-8.5); Neutrophils Absolute Auto 4.6 K/mm3 (1.3-6.7); Neutrophils Percent Auto 59.1 % (45.5-73.1); Platelet Count Result 374 k/mm3 (150-375); Red Blood Count 4.38 M/mm3 (4.2-5.4); Red Cell Distribution Width 14.3 % (11.5-14.5); White Blood Count 7.8 K/mm3 (4.5-10.0)
[2024-07-05 06:20] LABS: Alanine Aminotransferase 28 U/L (6-35); Albumin Level 3.9 g/dL (3.5-5.1); Alkaline Phosphatase 133 U/L (38-126); Anion Gap 13 mmol/L (4-12); Aspartate Amino Transferase 26 U/L (14-36); Bilirubin,Total 0.9 mg/dL (0.2-1.3); Blood Urea Nitrogen 25 mg/dL (7-17); Carbon Dioxide 23 mmol/L (22-30); Chloride 103 mmol/L (98-107); Estimated CRCL calculation 25 ml/min; Estimated Glomerular Filt Rate 28; Glucose 134 mg/dL (65-110); Potassium 3.3 mmol/L (3.4-5.0); Sodium 139 mmol/L (137-145)
[2024-07-05] MEDS: PERFLUTREN LIPID MICROSPHERES 1.5 ML VIAL DILUTED TO 10 ML TOTAL VOLUME IV PUSH (09:50)
[2024-07-05] MEDS: SACUBITRIL/VALSARTAN 24-26 MG TABLET 1 TAB PO ×2 (09:54→21:27)
[2024-07-05] MEDS: EMPAGLIFLOZIN 10 MG TABLET PO (09:54)
[2024-07-05] MEDS: CLOPIDOGREL BISULFATE 75 MG TABLET PO (09:54)
[2024-07-05] MEDS: LORATADINE 10 MG TABLET PO (09:54)
[2024-07-05] MEDS: ASPIRIN 81 MG ENTERIC TABLET PO (09:54)
[2024-07-05] MEDS: SPIRONOLACTONE 25 MG TABLET PO (09:54)
[2024-07-05] MEDS: PANTOPRAZOLE 40 MG TABLET PO ×2 (09:54→21:28)
[2024-07-05] MEDS: FUROSEMIDE INJ 40 MG/4 ML VIAL IV PUSH (09:54)
[2024-07-05] MEDS: carvediloL 6.25 MG TABLET PO ×2 (09:55→21:27)
[2024-07-05] MEDS: FLUoxetine HCL 20 MG CAPSULE 40 MG PO (09:58)
[2024-07-05] MEDS: POTASSIUM CHLORIDE 20 MEQ ER TABLET 40 MEQ PO (09:59)
--- NOTE | 2024-07-05 10:22 | P.PNIM_ITS ---
Progress Note: A&P Assessment and Plan (1) Acute exacerbation of CHF (congestive heart failure): Code(s): I50.9 - Heart failure, unspecified Status: Acute Assessment and Plan: * BNP > 30,000 * Furosemide 40 meq IVP q 12 and Spironolactone 25 mg PO qam. Switched Furosemide 40 mg PO BID on 07/05/24. * Telemetry- SR 60. * Daily weights. * Cardiology consult. * Stop Amlodipine 5 mg PO daily to allow optimization of heart failure GDMT on 07/04/24. * Stop Losartan 25 mg PO daily, start Entresto 24/26 mg PO BID on 07/04/24. * Stop Metoprolol 12.5 mg PO daily, switch to Coreg given elevated blood pressures on 07/04/24. . * Add Jardiance 10 mg PO daily on 07/04/24. * monitor labs. * Echocardiogram today showed: Summary 1. The left ventricle is normal in size with severely reduced systolic function. There is severe concentric left ventricular hypertrophy. The left ventricular ejection fraction is visually estimated to be 30-35%. 2. The right ventricle is normal in size with mildly reduced systolic function. (2) History of myocardial infarction: Code(s): I25.2 - Old myocardial infarction Status: Acute Assessment and Plan: * Inferior STEMI on 02/29/24. * Aspirin EC 81 mg PO daily and Plavix 75 mg PO daily. (3) History of coronary artery bypass graft: Code(s): Z95.1 - Presence of aortocoronary bypass graft Status: Acute Assessment and Plan: * CABG 4 vessel on 03/23/24 * Has been attending cardiac rehab outpatient. * Aspirin EC 81 mg PO daily and Plavix 75 mg PO daily. (4) Essential (primary) hypertension: Code(s): I10 - Essential (primary) hypertension Status: Acute Assessment and Plan: * Stop Amlodipine 5 mg PO daily to allow optimization of heart failure GDMT on 07/04/24. * Stop Losartan 25 mg PO daily, start Entresto 24/26 mg PO BID on 07/04/24. * Stop Metoprolol 12.5 mg PO daily, switch to Coreg given elevated blood pressures on 07/04/24. * Continue Spironolactone 25 mg PO qam. * Add Jardiance 10 mg PO daily on 07/04/24. * Blood pressure 113/64. (5) Hypothyroidism: Code(s): E03.9 - Hypothyroidism, unspecified Status: Acute Assessment and Plan: * Levothyroxine 50 mcg PO daily. (6) GERD (gastroesophageal reflux disease): Code(s): K21.9 - Gastro-esophageal reflux disease without esophagitis Status: Acute Assessment and Plan: * Pantoprazole 40 mg PO q 12. (7) Allergic rhinitis: Code(s): J30.9 - Allergic rhinitis, unspecified Status: Acute Assessment and Plan: * Loratadine 10 mg PO daily. Subjective Date/time seen: 07/05/24 10:22 Interval history: Patient reports that breathing and strength in legs has improved. Patient denies chest pain, palpitations, shortness of breath, headache, dizziness, nausea, or vomiting. Review of Systems Review of Systems: All systems reviewed & are unremarkable except as noted in HPI and below Exam Const: General: comfortable and no acute distress Eyes: Sclera: sclerae normal Resp: Effort & Inspection: normal respiratory effort Auscultation: diminished lung sounds Cardio: Rate: regular rate Rhythm: regular rhythm Skin: General skin exam: no rashes or lesions noted Neuro: Speech: normal speech Extrem: General: no pedal edema Psych: Mental Status: mental status grossly normal Affect: normal affect Objective Data Vital Signs Vital Signs: Vital Signs - 24 hr 07/04/24 12:00 07/04/24 14:00 07/04/24 16:00 Temperature 97.0 F L Pulse Rate 61 58 L 66 Respiratory Rate 18 Blood Pressure 162/96 H Pulse Oximetry 97 Oxygen Delivery Fraction of Inspired Oxygen 07/04/24 20:00 07/04/24 20:00 07/04/24 20:01 Temperature Pulse Rate 61 Respiratory Rate Blood Pressure Pulse Oximetry 97 Oxygen Delivery Room Air Room Air Fraction of Inspired Oxygen 21 07/04/24 20:51 07/04/24 20:57 07/05/24 00:00 Temperature 97.2 F L Pulse Rate 67 67 63 Respiratory Rate 16 Blood Pressure 150/78 H Pulse Oximetry 97 Oxygen Delivery Fraction of Inspired Oxygen 07/05/24 04:00 07/05/24 04:38 07/05/24 08:00 Temperature 98.2 F Pulse Rate 66 65 Respiratory Rate 18 Blood Pressure 170/76 H Pulse Oximetry 94 Oxygen Delivery Room Air Fraction of Inspired Oxygen 07/05/24 08:00 07/05/24 09:55 Temperature Pulse Rate 74 72 Respiratory Rate Blood Pressure Pulse Oximetry Oxygen Delivery Fraction of Inspired Oxygen Intake/Output Intake/Output: Intake & Output 07/02/24 07/03/24 07/04/24 07/05/24 23:59 23:59 23:59 23:59 Intake Total 1300 200 Output Total 750 9715 300 Balance -750 -1625 -100 Meds/Results Medications: Active Medications Generic Name Dose Route Start Last Admin Trade Name Freq PRN Reason Stop Dose Admin Acetaminophen 650 mg 07/04/24 14:01 07/04/24 20:57 Acetaminophen 325 Mg Tablet PO 650 mg Q4H PRN Administration Mild Pain (1-3) or Fever Aspirin 81 mg 07/04/24 09:00 07/05/24 09:54 Aspirin 81 Mg Enteric Tablet PO 81 mg QAM APPLE Administration Carvedilol 6.25 mg 07/04/24 21:00 07/05/24 09:55 Carvedilol 6.25 Mg Tablet PO 6.25 mg Q12HR APPLE Administration Clopidogrel Bisulfate 75 mg 07/04/24 09:00 07/05/24 09:54 Clopidogrel Bisulfate 75 Mg Tablet PO 75 mg DAILY APPLE Administration Empagliflozin 10 mg 07/04/24 14:25 07/05/24 09:54 Empagliflozin 10 Mg Tablet PO 10 mg DAILY APPLE Administration Fluoxetine HCl 40 mg 07/04/24 09:00 07/05/24 09:58 Fluoxetine Hcl 20 Mg Capsule PO 40 mg DAILY APPLE Administration Furosemide 40 mg 07/03/24 21:00 07/05/24 09:54 Furosemide Inj 40 Mg/4 Ml Vial IV PUSH 40 mg Q12HR APPLE Administration Levothyroxine Sodium 50 mcg 07/04/24 06:30 07/05/24 04:42 Levothyroxine Sodium 50 Mcg Tablet PO 50 mcg DAILY@0630 APPLE Administration Loratadine 10 mg 07/04/24 14:00 07/05/24 09:54 Loratadine 10 Mg Tablet PO 10 mg QAM APPLE Administration Pantoprazole Sodium 40 mg 07/04/24 09:00 07/05/24 09:54 Pantoprazole 40 Mg Tablet PO 40 mg Q12HR APPLE Administration Perflutren Lipid Microsphere 0 ml 07/04/24 14:26 Perflutren Lipid Microspheres 1.5 Ml Vial Diluted To 10 Ml Total Volume IV PUSH 07/07/24 14:26 ONCE PRN adequate visualization Protocol Polyethylene Glycol 17 gm 07/04/24 14:01 Polyethylene Glycol 3350 17 Gm Powd.Pack PO QAM PRN Constipation Sacubitril/Valsartan 1 tab 07/04/24 21:00 07/05/24 09:54 Sacubitril/Valsartan 24-26 Mg Tablet PO 1 tab Q12HR APPLE Administration Senna/Docusate Sodium 1 tab 07/04/24 07:09 Senna/Docusate Sodium Tablet PO DAILY PRN constipation Spironolactone 25 mg 07/04/24 09:00 07/05/24 09:54 Spironolactone 25 Mg Tablet PO 25 mg QAM APPLE Administration Radiology Results: ITS Impressions Chest X-Ray 07/03/24 11:01 Impression: Clear lungs. Stable cardiomegaly, status post CABG. Chest CTA 07/03/24 15:26 IMPRESSION: 1. No pulmonary embolism. 2. Likely congestive heart failure with cardiomegaly, mild pulmonary edema and small bilateral pleural effusions. Venous Doppler Study 07/04/24 08:23 IMPRESSION: 1: No lower extremity deep venous thrombosis. Labs Labs: Laboratory Results - last 24 hr 07/05/24 05:20 WBC 7.8 RBC 4.38 Hgb 11.6 L Hct 36.7 L MCV 83.8 MCH 26.5 MCHC 31.6 L RDW 14.3 Plt Count 374 MPV 9.7 Immature Gran % (Auto) 0.3 Neut % (Auto) 59.1 Lymph % (Auto) 19.2 [place] % (Auto) 12.1 H Eos % (Auto) 8.0 H Baso % (Auto) 1.3 H Lymph # (Auto) 1.50 [place] # (Auto) 1.0 H Eos # (Auto) 0.6 H Baso # (Auto) 0.1 Abs Immat Gran (auto) 0.02 Absolute Neuts (auto) 4.6 Absolute Nucleated RBC 0.000 Nucleated RBC % 0.0 Sodium 139 Potassium 3.3 L Chloride 103 Carbon Dioxide 23 Anion Gap 13 H BUN 25 H Creatinine 1.77 H Estim Creat Clear Calc 25 Estimated GFR 28 L Glucose 134 H Calcium 9.0 Total Bilirubin 0.9 AST 26 ALT 28 Alkaline Phosphatase 133 H Total Protein 7.0 Albumin 3.9 Quality VTE Prophylaxis VTE prophylaxis: mechanical ordered
--- NOTE | 2024-07-05 11:11 | IVDEFINITY ---
Prior to administration of IV Definity the patient was educated on the risks and benefits of the imaging enhancing agent including potential adverse side effects. The patient verbalized understanding. Allergies were verified. No exclusion criteria were identified and at least one of the following inclusion criteria were met: 1) physician request, 2) patient technically difficult to image (per the [place] [employer]ch[employer] guidelines of two or more segments not discernable within the apical view), or 3) questionable left ventricular function. ?
--- NOTE | 2024-07-05 13:30 | PM.PNCARD ---
Progress Note: A&P Assessment and Plan (1) Acute on chronic heart failure with mildly reduced ejection fraction (HFmrEF, 41-49%): Code(s): I50.23 - Acute on chronic systolic (congestive) heart failure Status: Acute Plan 1. Acute on chronic heart failure with mildly reduced LVEF of 40% per TTE 03/21/2024 2. Coronary artery disease. Inferior STEMI on 02/29/2024 s/p TESSA to the RCA extending to the RPLV branch. S/p 4V CABG on 03/23/2024 with SUTTON to the LAD, radial artery to the OM, SVG to the diagonal and distal LAD in a sequential fashion. 3. Hypertension 4. Hyperlipidemia 5. Chronic kidney disease 6. GERD 7. Hypothyroidism 8. Crohn's disease PLAN: -Will shift to p.o. furosemide today -Echo is pending -Continue Entresto 24/26mg BID. -Continue Spironolactone. -Continue Coreg -Continue Jardiance 10mg once daily. -If her blood pressure is uncontrolled despite maximal doses of heart failure GDMT, then can add back on Amlodipine. However, prefer to maximize doses of heart failure meds first. -Continue ASA, Plavix for CAD. Not on statin because of myalgias/statin intolerance. We are working on obtaining Repatha for her as outpatient. -Anticipate discharge tomorrow if she remains stable Subjective Date/time seen: 07/05/24 13:30 Interval history: Cardiology follow up for CHF She is feeling well today and denies any shortness of breath, chest pain, palpitations. No edema. She is feeling nauseous because of the potassium pills. Review of Systems Review of Systems: All systems reviewed & are unremarkable except as noted in HPI and below (HPI) Exam Const: General: comfortable and no acute distress HENMT: Mouth: Yes moist mucous membranes Eyes: General: appearance normal, both eyes and all related structures Sclera: sclerae normal Resp: Effort & Inspection: normal respiratory effort Auscultation: diminished lung sounds Other: No lower extremity edema Cardio: Rate: regular rate Rhythm: regular rhythm Heart sounds: no murmurs Skin: General skin exam: normal color Neuro: Speech: normal speech Psych: Mental Status: mental status grossly normal Affect: normal affect Objective Data Vital Signs Vital Signs: Vital Signs - 24 hr 07/04/24 14:00 07/04/24 16:00 07/04/24 20:00 Temperature 36.1 C L Pulse Rate 58 L 66 61 Respiratory Rate 18 Blood Pressure 162/96 H Pulse Oximetry 97 Oxygen Delivery Fraction of Inspired Oxygen 07/04/24 20:00 07/04/24 20:01 07/04/24 20:51 Temperature 36.2 C L Pulse Rate 67 Respiratory Rate 16 Blood Pressure 150/78 H Pulse Oximetry 97 97 Oxygen Delivery Room Air Room Air Fraction of Inspired Oxygen 07/04/24 20:57 07/05/24 00:00 07/05/24 04:00 Temperature Pulse Rate 67 63 66 Respiratory Rate Blood Pressure Pulse Oximetry Oxygen Delivery Fraction of Inspired Oxygen 07/05/24 04:38 07/05/24 08:00 07/05/24 08:00 Temperature 36.8 C Pulse Rate 65 74 Respiratory Rate 18 Blood Pressure 170/76 H Pulse Oximetry 94 Oxygen Delivery Room Air Fraction of Inspired Oxygen 07/05/24 09:55 Temperature Pulse Rate 72 Respiratory Rate Blood Pressure Pulse Oximetry Oxygen Delivery Fraction of Inspired Oxygen Intake/Output Intake/Output: Intake & Output 07/02/24 07/03/24 07/04/24 07/05/24 23:59 23:59 23:59 23:59 Intake Total 1300 440 Output Total 003 0723 857 Pagcsqa -821 -7680 -335 Meds/Results Medications: Active Medications Generic Name Dose Route Start Last Admin Trade Name Freq PRN Reason Stop Dose Admin Acetaminophen 650 mg 07/04/24 14:01 07/04/24 20:57 Acetaminophen 325 Mg Tablet PO 650 mg Q4H PRN Administration Mild Pain (1-3) or Fever Aspirin 81 mg 07/04/24 09:00 07/05/24 09:54 Aspirin 81 Mg Enteric Tablet PO 81 mg QAM APPLE Administration Carvedilol 6.25 mg 07/04/24 21:00 07/05/24 09:55 Carvedilol 6.25 Mg Tablet PO 6.25 mg Q12HR APPLE Administration Clopidogrel Bisulfate 75 mg 07/04/24 09:00 07/05/24 09:54 Clopidogrel Bisulfate 75 Mg Tablet PO 75 mg DAILY APPLE Administration Empagliflozin 10 mg 07/04/24 14:25 07/05/24 09:54 Empagliflozin 10 Mg Tablet PO 10 mg DAILY APPLE Administration Fluoxetine HCl 40 mg 07/04/24 09:00 07/05/24 09:58 Fluoxetine Hcl 20 Mg Capsule PO 40 mg DAILY APPLE Administration Furosemide 40 mg 07/03/24 21:00 07/05/24 09:54 Furosemide Inj 40 Mg/4 Ml Vial IV PUSH 40 mg Q12HR APPLE Administration Levothyroxine Sodium 50 mcg 07/04/24 06:30 07/05/24 04:42 Levothyroxine Sodium 50 Mcg Tablet PO 50 mcg DAILY@0630 APPLE Administration Loratadine 10 mg 07/04/24 14:00 07/05/24 09:54 Loratadine 10 Mg Tablet PO 10 mg QAM APPLE Administration Ondansetron HCl 4 mg 07/05/24 13:03 Ondansetron Inj 4 Mg/2 Ml Vial IV PUSH Q6H PRN Nausea And Vomiting Pantoprazole Sodium 40 mg 07/04/24 09:00 07/05/24 09:54 Pantoprazole 40 Mg Tablet PO 40 mg Q12HR APPLE Administration Polyethylene Glycol 17 gm 07/04/24 14:01 Polyethylene Glycol 3350 17 Gm Powd.Pack PO QAM PRN Constipation Sacubitril/Valsartan 1 tab 07/04/24 21:00 07/05/24 09:54 Sacubitril/Valsartan 24-26 Mg Tablet PO 1 tab Q12HR APPLE Administration Senna/Docusate Sodium 1 tab 07/04/24 07:09 Senna/Docusate Sodium Tablet PO DAILY PRN constipation Spironolactone 25 mg 07/04/24 09:00 07/05/24 09:54 Spironolactone 25 Mg Tablet PO 25 mg QAM APPLE Administration Radiology Results: ITS Impressions Chest X-Ray 07/03/24 11:01 Impression: Clear lungs. Stable cardiomegaly, status post CABG. Chest CTA 07/03/24 15:26 IMPRESSION: 1. No pulmonary embolism. 2. Likely congestive heart failure with cardiomegaly, mild pulmonary edema and small bilateral pleural effusions. Venous Doppler Study 07/04/24 08:23 IMPRESSION: 1: No lower extremity deep venous thrombosis. Labs Labs: Laboratory Results - last 24 hr 07/05/24 05:20 WBC 7.8 RBC 4.38 Hgb 11.6 L Hct 36.7 L MCV 83.8 MCH 26.5 MCHC 31.6 L RDW 14.3 Plt Count 374 MPV 9.7 Immature Gran % (Auto) 0.3 Neut % (Auto) 59.1 Lymph % (Auto) 19.2 [place] % (Auto) 12.1 H Eos % (Auto) 8.0 H Baso % (Auto) 1.3 H Lymph # (Auto) 1.50 [place] # (Auto) 1.0 H Eos # (Auto) 0.6 H Baso # (Auto) 0.1 Abs Immat Gran (auto) 0.02 Absolute Neuts (auto) 4.6 Absolute Nucleated RBC 0.000 Nucleated RBC % 0.0 Sodium 139 Potassium 3.3 L Chloride 103 Carbon Dioxide 23 Anion Gap 13 H BUN 25 H Creatinine 1.77 H Estim Creat Clear Calc 25 Estimated GFR 28 L Glucose 134 H Calcium 9.0 Total Bilirubin 0.9 AST 26 ALT 28 Alkaline Phosphatase 133 H Total Protein 7.0 Albumin 3.9 Quality VTE Prophylaxis VTE prophylaxis: mechanical ordered
[2024-07-05] MEDS: ONDANSETRON INJ 4 MG/2 ML VIAL IV PUSH (13:39)
[2024-07-05] MEDS: FUROSEMIDE 40 MG TABLET PO (17:39)
[2024-07-06] VITALS (12 sets, daily range): BP systolic 110–142; BP diastolic 43–66; PULSE 64–77; RESP 16–20; TEMP 36.4–36.7; O2SAT 94–95
[2024-07-06] MEDS: LEVOTHYROXINE SODIUM 50 MCG TABLET PO (06:03)
[2024-07-06 06:31] LABS: Basophils Absolute Auto 0.1 K/mm3 (0.0-0.1); Basophils Percent Auto 1.5 % (0.2-1.2); Eosinophils Absolute Auto 0.6 K/mm3 (0-0.3); Eosinophils Percent Auto 6.6 % (0-4.4); Hematocrit 40.2 % (37.0-47.0); Hemoglobin 12.6 g/dL (12.0-15.0); Immature Granulocyte Absolute 0.03 K/mm3 (0.00-0.031); Immature Granulocyte Percent A 0.3 % (0-0.5); Lymphocytes Absolute Auto 1.82 K/mm3 (0.9-3.2); Mean Corpuscular HGB Conc 31.3 g/dl (32-36); Mean Corpuscular Volume 86.3 fl (80-100); Mean Platelet Volume 9.8 fl (7.4-10.4); Monocytes Absolute Auto 1.1 K/mm3 (0.1-0.6); Monocytes Percent Auto 12.1 % (2.6-8.5); Neutrophils Absolute Auto 5.1 K/mm3 (1.3-6.7); Neutrophils Percent Auto 58.5 % (45.5-73.1); Platelet Count Result 422 k/mm3 (150-375); Red Blood Count 4.66 M/mm3 (4.2-5.4); Red Cell Distribution Width 14.6 % (11.5-14.5); White Blood Count 8.7 K/mm3 (4.5-10.0)
[2024-07-06 06:49] LABS: Alanine Aminotransferase 24 U/L (6-35); Alkaline Phosphatase 123 U/L (38-126); Anion Gap 14 mmol/L (4-12); Aspartate Amino Transferase 22 U/L (14-36); Bilirubin,Total 0.9 mg/dL (0.2-1.3); Blood Urea Nitrogen 28 mg/dL (7-17); Calcium 9.5 mg/dL (8.4-10.2); Carbon Dioxide 26 mmol/L (22-30); Chloride 102 mmol/L (98-107); Estimated CRCL calculation 19 ml/min; Estimated Glomerular Filt Rate 21; Glucose 137 mg/dL (65-110); Potassium 4.2 mmol/L (3.4-5.0); Sodium 142 mmol/L (137-145)
[2024-07-06] MEDS: ASPIRIN 81 MG ENTERIC TABLET PO (09:12)
[2024-07-06] MEDS: LORATADINE 10 MG TABLET PO (09:12)
[2024-07-06] MEDS: SACUBITRIL/VALSARTAN 24-26 MG TABLET 1 TAB PO ×2 (09:12→21:33)
[2024-07-06] MEDS: CLOPIDOGREL BISULFATE 75 MG TABLET PO (09:12)
[2024-07-06] MEDS: carvediloL 6.25 MG TABLET PO ×2 (09:13→21:32)
[2024-07-06] MEDS: SPIRONOLACTONE 25 MG TABLET PO (09:13)
[2024-07-06] MEDS: EMPAGLIFLOZIN 10 MG TABLET PO (09:13)
[2024-07-06] MEDS: PANTOPRAZOLE 40 MG TABLET PO ×2 (09:13→21:33)
[2024-07-06] MEDS: FLUoxetine HCL 20 MG CAPSULE 40 MG PO (09:14)
--- NOTE | 2024-07-06 09:49 | P.PNCA_ITS ---
Progress Note: A&P Assessment and Plan (1) Acute on chronic heart failure with mildly reduced ejection fraction (HFmrEF, 41-49%): Code(s): I50.23 - Acute on chronic systolic (congestive) heart failure Status: Acute Plan 1. Acute on chronic heart failure with reduced LVEF of 30-35% per TTE 07/05/2023 2. Coronary artery disease. Inferior STEMI on 02/29/2024 s/p TESSA to the RCA extending to the RPLV branch. S/p 4V CABG on 03/23/2024 with SUTTON to the LAD, radial artery to the OM, SVG to the diagonal and distal LAD in a sequential fashion. 3. Hypertension 4. Hyperlipidemia 5. [place] on chronic kidney disease 6. GERD 7. Hypothyroidism 8. Crohn's disease PLAN: -Given [place] on CKD, agree with holding Lasix for now. -Continue Entresto 24/26mg BID. -Continue Spironolactone. -Continue Coreg -Continue Jardiance 10mg once daily. -If her blood pressure is uncontrolled despite maximal doses of heart failure GDMT, then can add back on Amlodipine. However, prefer to maximize doses of heart failure meds first. -Continue ASA, Plavix for CAD. Not on statin because of myalgias/statin intolerance. We are working on obtaining Repatha for her as outpatient. -Given LVEF <35%, ordered Life Vest. Will plan to repeat TTE as an outpatient to re-evaluate LVEF in 3 months. Hopeful discharge tomorrow if renal function improves. Recommendations and plan discussed with Hospitalist. Subjective Date/time seen: 07/06/24 09:49 Interval history: Reason for visit: Acute on chronic HFrEF HPI: Sharmila is a patient of [employer] with the following history: 1. Coronary artery disease. Inferior STEMI on 02/29/2024 s/p TESSA to the RCA extending to the RPLV branch. S/p 4V CABG on 03/23/2024 with SUTTON to the LAD, radial artery to the OM, SVG to the diagonal and distal LAD in a sequential fashion. 2. Heart failure with LVEF of 40% per TTE 03/21/2024 3. Hypertension 4. Hyperlipidemia 5. Chronic kidney disease 6. GERD 7. Hypothyroidism 8. Crohn's disease Sharmila presented with worsening dyspnea on exertion. No chest pain. NT pro BNP is >30,000. CXR showed clear lungs. However, CTA shows mild pulmonary edema and small bilateral pleural effusions. EKG shows sinus rhythm, T-wave abnormality in the high lateral leads that is unchanged from before. She has been started on IV Lasix and reports symptomatic improvement. Date of service 07/05: She is feeling well today and denies any shortness of breath, chest pain, palpitations. No edema. She is feeling nauseous because of the potassium pills. Date of service 07/06: Feeling well, no shortness of breath or lower extremity edema. Review of Systems Review of Systems: All systems reviewed & are unremarkable except as noted in HPI and below (HPI) Exam Const: General: comfortable and no acute distress HENMT: Mouth: Yes moist mucous membranes Eyes: General: appearance normal, both eyes and all related structures Sclera: sclerae normal Resp: Effort & Inspection: normal respiratory effort Cardio: Rate: regular rate Rhythm: regular rhythm Other: No lower extremity edema Skin: General skin exam: normal color Neuro: Speech: normal speech Psych: Mental Status: mental status grossly normal Affect: normal affect Objective Data Vital Signs Vital Signs: Vital Signs - 24 hr 07/05/24 09:55 07/05/24 12:00 07/05/24 14:00 Temperature 36.4 C L Pulse Rate 72 68 71 Respiratory Rate 14 Blood Pressure 113/64 Pulse Oximetry 91 Oxygen Delivery 07/05/24 16:00 07/05/24 20:00 07/05/24 20:00 Temperature Pulse Rate 60 73 Respiratory Rate Blood Pressure Pulse Oximetry Oxygen Delivery Room Air 07/05/24 21:26 07/05/24 21:27 07/06/24 00:00 Temperature 36.4 C L Pulse Rate 68 68 77 Respiratory Rate 16 Blood Pressure 141/61 H Pulse Oximetry 94 Oxygen Delivery 07/06/24 04:00 07/06/24 06:00 07/06/24 08:00 Temperature 36.4 C Pulse Rate 76 72 Respiratory Rate 16 Blood Pressure 142/57 H Pulse Oximetry 95 Oxygen Delivery Room Air 07/06/24 09:13 Temperature Pulse Rate 76 Respiratory Rate Blood Pressure Pulse Oximetry Oxygen Delivery Intake/Output Intake/Output: Intake & Output 07/03/24 07/04/24 07/05/24 07/06/24 23:59 23:59 23:59 23:59 Intake Total 1300 1240 440 Output Total 308 8412 1701 400 Balance -750 -1625 -460 40 Meds/Results Medications: Active Medications Generic Name Dose Route Start Last Admin Trade Name Freq PRN Reason Stop Dose Admin Acetaminophen 650 mg 07/04/24 14:01 07/04/24 20:57 Acetaminophen 325 Mg Tablet PO 650 mg Q4H PRN Administration Mild Pain (1-3) or Fever Aspirin 81 mg 07/04/24 09:00 07/06/24 09:12 Aspirin 81 Mg Enteric Tablet PO 81 mg QAM APPLE Administration Carvedilol 6.25 mg 07/04/24 21:00 07/06/24 09:13 Carvedilol 6.25 Mg Tablet PO 6.25 mg Q12HR APPLE Administration Clopidogrel Bisulfate 75 mg 07/04/24 09:00 07/06/24 09:12 Clopidogrel Bisulfate 75 Mg Tablet PO 75 mg DAILY APPLE Administration Empagliflozin 10 mg 07/04/24 14:25 07/06/24 09:13 Empagliflozin 10 Mg Tablet PO 10 mg DAILY APPLE Administration Fluoxetine HCl 40 mg 07/04/24 09:00 07/06/24 09:14 Fluoxetine Hcl 20 Mg Capsule PO 40 mg DAILY APPLE Administration Furosemide 40 mg 07/05/24 17:00 07/05/24 17:39 Furosemide 40 Mg Tablet PO 40 mg BID APPLE Administration Levothyroxine Sodium 50 mcg 07/04/24 06:30 07/06/24 06:03 Levothyroxine Sodium 50 Mcg Tablet PO 50 mcg DAILY@0630 APPLE Administration Loratadine 10 mg 07/04/24 14:00 07/06/24 09:12 Loratadine 10 Mg Tablet PO 10 mg QAM APPLE Administration Ondansetron HCl 4 mg 07/05/24 13:03 07/05/24 13:39 Ondansetron Inj 4 Mg/2 Ml Vial IV PUSH 4 mg Q6H PRN Administration Nausea And Vomiting Pantoprazole Sodium 40 mg 07/04/24 09:00 07/06/24 09:13 Pantoprazole 40 Mg Tablet PO 40 mg Q12HR APPLE Administration Polyethylene Glycol 17 gm 07/04/24 14:01 Polyethylene Glycol 3350 17 Gm Powd.Pack PO QAM PRN Constipation Sacubitril/Valsartan 1 tab 07/04/24 21:00 07/06/24 09:12 Sacubitril/Valsartan 24-26 Mg Tablet PO 1 tab Q12HR APPLE Administration Senna/Docusate Sodium 1 tab 07/04/24 07:09 Senna/Docusate Sodium Tablet PO DAILY PRN constipation Spironolactone 25 mg 07/04/24 09:00 07/06/24 09:13 Spironolactone 25 Mg Tablet PO 25 mg QAM APPLE Administration Radiology Results: ITS Impressions Chest X-Ray 07/03/24 11:01 Impression: Clear lungs. Stable cardiomegaly, status post CABG. Chest CTA 07/03/24 15:26 IMPRESSION: 1. No pulmonary embolism. 2. Likely congestive heart failure with cardiomegaly, mild pulmonary edema and small bilateral pleural effusions. Venous Doppler Study 07/04/24 08:23 IMPRESSION: 1: No lower extremity deep venous thrombosis. Labs Labs: Laboratory Results - last 24 hr 07/06/24 05:56 WBC 8.7 RBC 4.66 Hgb 12.6 Hct 40.2 MCV 86.3 MCH 27.0 MCHC 31.3 L RDW 14.6 H Plt Count 422 H MPV 9.8 Immature Gran % (Auto) 0.3 Neut % (Auto) 58.5 Lymph % (Auto) 21.0 [place] % (Auto) 12.1 H Eos % (Auto) 6.6 H Baso % (Auto) 1.5 H Lymph # (Auto) 1.82 [place] # (Auto) 1.1 H Eos # (Auto) 0.6 H Baso # (Auto) 0.1 Abs Immat Gran (auto) 0.03 Absolute Neuts (auto) 5.1 Absolute Nucleated RBC 0.000 Nucleated RBC % 0.0 Sodium 142 Potassium 4.2 Chloride 102 Carbon Dioxide 26 Anion Gap 14 H BUN 28 H Creatinine 2.32 H Estim Creat Clear Calc 19 Estimated GFR 21 L Glucose 137 H Calcium 9.5 Total Bilirubin 0.9 AST 22 ALT 24 Alkaline Phosphatase 123 Total Protein 8.0 Albumin 4.0
--- NOTE | 2024-07-06 11:55 | P.PNIM_ITS ---
Progress Note: A&P Assessment and Plan (1) Acute exacerbation of CHF (congestive heart failure): Code(s): I50.9 - Heart failure, unspecified Status: Acute Assessment and Plan: * BNP > 30,000 * Furosemide 40 meq IVP q 12 and Spironolactone 25 mg PO qam. Switched Furosemide 40 mg PO BID on 07/05/24. Hold Furosemide today 07/06 due to increase Creatinine of 2.32. * Telemetry- SR 68. * Daily weights. * Cardiology consult. * Stop Amlodipine 5 mg PO daily to allow optimization of heart failure GDMT on 07/04/24. * Stop Losartan 25 mg PO daily, start Entresto 24/26 mg PO BID on 07/04/24. * Stop Metoprolol 12.5 mg PO daily, switch to Coreg given elevated blood pressures on 07/04/24. . * Add Jardiance 10 mg PO daily on 07/04/24. * monitor labs. * Echocardiogram today showed: Summary 1. The left ventricle is normal in size with severely reduced systolic function. There is severe concentric left ventricular hypertrophy. The left ventricular ejection fraction is visually estimated to be 30-35%. 2. The right ventricle is normal in size with mildly reduced systolic function. * Cardiology ordered a Life Vest given LVEF <35%. Will plan to repeat TTE as an outpatient to re-evaluate LVEF in 3 months. (2) History of myocardial infarction: Code(s): I25.2 - Old myocardial infarction Status: Acute Assessment and Plan: * Inferior STEMI on 02/29/24. * Aspirin EC 81 mg PO daily and Plavix 75 mg PO daily. (3) History of coronary artery bypass graft: Code(s): Z95.1 - Presence of aortocoronary bypass graft Status: Acute Assessment and Plan: * CABG 4 vessel on 03/23/24 * Has been attending cardiac rehab outpatient. * Aspirin EC 81 mg PO daily and Plavix 75 mg PO daily. (4) Essential (primary) hypertension: Code(s): I10 - Essential (primary) hypertension Status: Acute Assessment and Plan: * Stop Amlodipine 5 mg PO daily to allow optimization of heart failure GDMT on 07/04/24. * Stop Losartan 25 mg PO daily, start Entresto 24/26 mg PO BID on 07/04/24. * Stop Metoprolol 12.5 mg PO daily, switch to Coreg given elevated blood pressures on 07/04/24. * Continue Spironolactone 25 mg PO qam. * Add Jardiance 10 mg PO daily on 07/04/24. * Blood pressure 142/57. (5) Hypothyroidism: Code(s): E03.9 - Hypothyroidism, unspecified Status: Acute Assessment and Plan: * Levothyroxine 50 mcg PO daily. (6) GERD (gastroesophageal reflux disease): Code(s): K21.9 - Gastro-esophageal reflux disease without esophagitis Status: Acute Assessment and Plan: * Pantoprazole 40 mg PO q 12. (7) Allergic rhinitis: Code(s): J30.9 - Allergic rhinitis, unspecified Status: Acute Assessment and Plan: * Loratadine 10 mg PO daily. Subjective Date/time seen: 07/06/24 11:55 Interval history: Patient denies chest pain, palpitations, shortness of breath, headache, dizziness, nausea, or vomiting. Legs are feeling strong. Review of Systems Review of Systems: All systems reviewed & are unremarkable except as noted in HPI and below Exam Const: General: comfortable and no acute distress Eyes: Sclera: sclerae normal Resp: Effort & Inspection: normal respiratory effort Auscultation: diminished lung sounds Cardio: Rate: regular rate Rhythm: regular rhythm (Telemetry- SR 68. ) GI: GI Palp: Yes Soft to palpation Auscultation: normal bowel sounds Skin: General skin exam: no rashes or lesions noted Neuro: Speech: normal speech Extrem: General: no pedal edema Psych: Mental Status: mental status grossly normal Affect: normal affect Objective Data Vital Signs Vital Signs: Vital Signs - 24 hr 07/05/24 12:00 07/05/24 14:00 07/05/24 16:00 Temperature 97.5 F L Pulse Rate 68 71 60 Respiratory Rate 14 Blood Pressure 113/64 Pulse Oximetry 91 Oxygen Delivery 07/05/24 20:00 07/05/24 20:00 07/05/24 21:26 Temperature 97.5 F L Pulse Rate 73 68 Respiratory Rate 16 Blood Pressure 141/61 H Pulse Oximetry 94 Oxygen Delivery Room Air 07/05/24 21:27 07/06/24 00:00 07/06/24 04:00 Temperature Pulse Rate 68 77 76 Respiratory Rate Blood Pressure Pulse Oximetry Oxygen Delivery 07/06/24 06:00 07/06/24 08:00 07/06/24 09:13 Temperature 97.6 F Pulse Rate 72 76 Respiratory Rate 16 Blood Pressure 142/57 H Pulse Oximetry 95 Oxygen Delivery Room Air Intake/Output Intake/Output: Intake & Output 07/03/24 07/04/24 07/05/24 07/06/24 23:59 23:59 23:59 23:59 Intake Total 1300 1240 440 Output Total 750 2925 1700 400 Balance -750 -1625 -460 40 Meds/Results Medications: Active Medications Generic Name Dose Route Start Last Admin Trade Name Freq PRN Reason Stop Dose Admin Acetaminophen 650 mg 07/04/24 14:01 07/04/24 20:57 Acetaminophen 325 Mg Tablet PO 650 mg Q4H PRN Administration Mild Pain (1-3) or Fever Aspirin 81 mg 07/04/24 09:00 07/06/24 09:12 Aspirin 81 Mg Enteric Tablet PO 81 mg QAM APPLE Administration Carvedilol 6.25 mg 07/04/24 21:00 07/06/24 09:13 Carvedilol 6.25 Mg Tablet PO 6.25 mg Q12HR APPLE Administration Clopidogrel Bisulfate 75 mg 07/04/24 09:00 07/06/24 09:12 Clopidogrel Bisulfate 75 Mg Tablet PO 75 mg DAILY APPLE Administration Empagliflozin 10 mg 07/04/24 14:25 07/06/24 09:13 Empagliflozin 10 Mg Tablet PO 10 mg DAILY APPLE Administration Fluoxetine HCl 40 mg 07/04/24 09:00 07/06/24 09:14 Fluoxetine Hcl 20 Mg Capsule PO 40 mg DAILY APPLE Administration Furosemide 40 mg 07/05/24 17:00 07/05/24 17:39 Furosemide 40 Mg Tablet PO 40 mg BID APPLE Administration Levothyroxine Sodium 50 mcg 07/04/24 06:30 07/06/24 06:03 Levothyroxine Sodium 50 Mcg Tablet PO 50 mcg DAILY@0630 APPLE Administration Loratadine 10 mg 07/04/24 14:00 07/06/24 09:12 Loratadine 10 Mg Tablet PO 10 mg QAM APPLE Administration Ondansetron HCl 4 mg 07/05/24 13:03 07/05/24 13:39 Ondansetron Inj 4 Mg/2 Ml Vial IV PUSH 4 mg Q6H PRN Administration Nausea And Vomiting Pantoprazole Sodium 40 mg 07/04/24 09:00 07/06/24 09:13 Pantoprazole 40 Mg Tablet PO 40 mg Q12HR APPLE Administration Polyethylene Glycol 17 gm 07/04/24 14:01 Polyethylene Glycol 3350 17 Gm Powd.Pack PO QAM PRN Constipation Sacubitril/Valsartan 1 tab 07/04/24 21:00 07/06/24 09:12 Sacubitril/Valsartan 24-26 Mg Tablet PO 1 tab Q12HR APPLE Administration Senna/Docusate Sodium 1 tab 07/04/24 07:09 Senna/Docusate Sodium Tablet PO DAILY PRN constipation Spironolactone 25 mg 07/04/24 09:00 07/06/24 09:13 Spironolactone 25 Mg Tablet PO 25 mg QAM APPLE Administration Radiology Results: ITS Impressions Chest X-Ray 07/03/24 11:01 Impression: Clear lungs. Stable cardiomegaly, status post CABG. Chest CTA 07/03/24 15:26 IMPRESSION: 1. No pulmonary embolism. 2. Likely congestive heart failure with cardiomegaly, mild pulmonary edema and small bilateral pleural effusions. Venous Doppler Study 07/04/24 08:23 IMPRESSION: 1: No lower extremity deep venous thrombosis. Labs Labs: Laboratory Results - last 24 hr 07/06/24 05:56 WBC 8.7 RBC 4.66 Hgb 12.6 Hct 40.2 MCV 86.3 MCH 27.0 MCHC 31.3 L RDW 14.6 H Plt Count 422 H MPV 9.8 Immature Gran % (Auto) 0.3 Neut % (Auto) 58.5 Lymph % (Auto) 21.0 [place] % (Auto) 12.1 H Eos % (Auto) 6.6 H Baso % (Auto) 1.5 H Lymph # (Auto) 1.82 [place] # (Auto) 1.1 H Eos # (Auto) 0.6 H Baso # (Auto) 0.1 Abs Immat Gran (auto) 0.03 Absolute Neuts (auto) 5.1 Absolute Nucleated RBC 0.000 Nucleated RBC % 0.0 Sodium 142 Potassium 4.2 Chloride 102 Carbon Dioxide 26 Anion Gap 14 H BUN 28 H Creatinine 2.32 H Estim Creat Clear Calc 19 Estimated GFR 21 L Glucose 137 H Calcium 9.5 Total Bilirubin 0.9 AST 22 ALT 24 Alkaline Phosphatase 123 Total Protein 8.0 Albumin 4.0 Quality VTE Prophylaxis VTE prophylaxis: mechanical ordered
[2024-07-06] MEDS: ONDANSETRON INJ 4 MG/2 ML VIAL IV PUSH (17:18)
[2024-07-07] VITALS (11 sets, daily range): BP systolic 107–156; BP diastolic 56–62; PULSE 60–75; RESP 18–20; TEMP 36.5–36.6; O2SAT 94–98
[2024-07-07] MEDS: LEVOTHYROXINE SODIUM 50 MCG TABLET PO (06:03)
[2024-07-07 06:41] LABS: Basophils Absolute Auto 0.1 K/mm3 (0.0-0.1); Eosinophils Absolute Auto 0.6 K/mm3 (0-0.3); Eosinophils Percent Auto 6.8 % (0-4.4); Hematocrit 41.5 % (37.0-47.0); Hemoglobin 12.9 g/dL (12.0-15.0); Immature Granulocyte Absolute 0.03 K/mm3 (0.00-0.031); Immature Granulocyte Percent A 0.3 % (0-0.5); Lymphocytes Absolute Auto 1.95 K/mm3 (0.9-3.2); Lymphocytes Percent Auto 22.5 % (18.3-44.2); Mean Corpuscular HGB Conc 31.1 g/dl (32-36); Mean Corpuscular Hemoglobin 26.9 pg (26-34); Mean Corpuscular Volume 86.5 fl (80-100); Mean Platelet Volume 9.7 fl (7.4-10.4); Monocytes Absolute Auto 0.9 K/mm3 (0.1-0.6); Monocytes Percent Auto 10.4 % (2.6-8.5); Neutrophils Absolute Auto 5.1 K/mm3 (1.3-6.7); Platelet Count Result 401 k/mm3 (150-375); Red Cell Distribution Width 14.2 % (11.5-14.5); White Blood Count 8.7 K/mm3 (4.5-10.0)
[2024-07-07 06:55] LABS: Alanine Aminotransferase 21 U/L (6-35); Albumin Level 4.2 g/dL (3.5-5.1); Alkaline Phosphatase 111 U/L (38-126); Anion Gap 16 mmol/L (4-12); Aspartate Amino Transferase 23 U/L (14-36); Bilirubin,Total 0.8 mg/dL (0.2-1.3); Blood Urea Nitrogen 34 mg/dL (7-17); Calcium 9.3 mg/dL (8.4-10.2); Carbon Dioxide 26 mmol/L (22-30); Chloride 98 mmol/L (98-107); Estimated CRCL calculation 16 ml/min; Estimated Glomerular Filt Rate 16; Glucose 133 mg/dL (65-110); Potassium 3.7 mmol/L (3.4-5.0); Sodium 140 mmol/L (137-145)
[2024-07-07] MEDS: LORATADINE 10 MG TABLET PO (08:50)
[2024-07-07] MEDS: EMPAGLIFLOZIN 10 MG TABLET PO (08:50)
[2024-07-07] MEDS: SPIRONOLACTONE 25 MG TABLET PO (08:50)
[2024-07-07] MEDS: carvediloL 6.25 MG TABLET PO ×2 (08:50→21:23)
[2024-07-07] MEDS: SACUBITRIL/VALSARTAN 24-26 MG TABLET 1 TAB PO ×2 (08:50→21:22)
[2024-07-07] MEDS: FLUoxetine HCL 20 MG CAPSULE 40 MG PO (08:50)
[2024-07-07] MEDS: ASPIRIN 81 MG ENTERIC TABLET PO (08:50)
[2024-07-07] MEDS: CLOPIDOGREL BISULFATE 75 MG TABLET PO (08:51)
[2024-07-07] MEDS: PANTOPRAZOLE 40 MG TABLET PO ×2 (08:51→21:23)
--- NOTE | 2024-07-07 11:13 | P.PNIM_ITS ---
Progress Note: A&P Assessment and Plan (1) Acute exacerbation of CHF (congestive heart failure): Code(s): I50.9 - Heart failure, unspecified Status: Acute Assessment and Plan: * BNP > 30,000 * Furosemide 40 meq IVP q 12 and Spironolactone 25 mg PO qam. Switched Furosemide 40 mg PO BID on 07/05/24. Hold Furosemide today 07/06 due to increase Creatinine of 2.32. * Telemetry- SR 68. * Daily weights. * Cardiology consult. * Stop Amlodipine 5 mg PO daily to allow optimization of heart failure GDMT on 07/04/24. * Stop Losartan 25 mg PO daily, start Entresto 24/26 mg PO BID on 07/04/24. * Stop Metoprolol 12.5 mg PO daily, switch to Coreg given elevated blood pressures on 07/04/24. . * Add Jardiance 10 mg PO daily on 07/04/24. * monitor labs. * Echocardiogram today showed: Summary 1. The left ventricle is normal in size with severely reduced systolic function. There is severe concentric left ventricular hypertrophy. The left ventricular ejection fraction is visually estimated to be 30-35%. 2. The right ventricle is normal in size with mildly reduced systolic function. * Cardiology ordered a Life Vest given LVEF <35%, life vest in place. Will plan to repeat TTE as an outpatient to re-evaluate LVEF in 3 months. (2) Acute kidney injury superimposed on chronic kidney disease: Code(s): N17.9 - Acute kidney failure, unspecified; N18.9 - Chronic kidney disease, unspecified Status: Acute Assessment and Plan: * 07/07/24: BUN 34, Creatinine 2.89, & GFR 16. Continue holding Lasix. Encourage patient to drink water. * 07/06/24:BUN 28, Creatinine 2.32, & GFR 21. Holding Lasix. * 07/05/24:BUN 25, Creatinine 1.77, & GFR 28. * 07/04/24: BUN 26, Creatinine 1.62, & GFR 26. (3) History of myocardial infarction: Code(s): I25.2 - Old myocardial infarction Status: Acute Assessment and Plan: * Inferior STEMI on 02/29/24. * Aspirin EC 81 mg PO daily and Plavix 75 mg PO daily. (4) History of coronary artery bypass graft: Code(s): Z95.1 - Presence of aortocoronary bypass graft Status: Acute Assessment and Plan: * CABG 4 vessel on 03/23/24 * Has been attending cardiac rehab outpatient. * Aspirin EC 81 mg PO daily and Plavix 75 mg PO daily. (5) Essential (primary) hypertension: Code(s): I10 - Essential (primary) hypertension Status: Acute Assessment and Plan: * Stop Amlodipine 5 mg PO daily to allow optimization of heart failure GDMT on 07/04/24. * Stop Losartan 25 mg PO daily, start Entresto 24/26 mg PO BID on 07/04/24. * Stop Metoprolol 12.5 mg PO daily, switch to Coreg given elevated blood pressures on 07/04/24. * Continue Spironolactone 25 mg PO qam. * Add Jardiance 10 mg PO daily on 07/04/24. * Blood pressure 142/57. (6) Hypothyroidism: Code(s): E03.9 - Hypothyroidism, unspecified Status: Acute Assessment and Plan: * Levothyroxine 50 mcg PO daily. (7) GERD (gastroesophageal reflux disease): Code(s): K21.9 - Gastro-esophageal reflux disease without esophagitis Status: Acute Assessment and Plan: * Pantoprazole 40 mg PO q 12. (8) Allergic rhinitis: Code(s): J30.9 - Allergic rhinitis, unspecified Status: Acute Assessment and Plan: * Loratadine 10 mg PO daily. Subjective Date/time seen: 07/07/24 11:13 Interval history: Patient denies chest pain, palpitations, shortness of breath, headache, diz ziness, nausea, or vomiting. Legs are feeling strong. Review of Systems Review of Systems: All systems reviewed & are unremarkable except as noted in HPI and below Exam Const: General: comfortable and no acute distress Eyes: Sclera: sclerae normal Resp: Effort & Inspection: normal respiratory effort Auscultation: clear to auscultation bilaterally Cardio: Rate: regular rate Rhythm: regular rhythm Other: Telemetry SR 64 GI: GI Palp: Yes Soft to palpation Auscultation: normal bowel sounds Skin: General skin exam: no rashes or lesions noted Neuro: Speech: normal speech Extrem: General: no pedal edema Psych: Mental Status: mental status grossly normal Affect: normal affect Objective Data Vital Signs Vital Signs: Vital Signs - 24 hr 07/06/24 12:00 07/06/24 13:54 07/06/24 16:00 Temperature 98.0 F Pulse Rate 77 67 69 Respiratory Rate 16 Blood Pressure 110/43 L Pulse Oximetry 94 Oxygen Delivery 07/06/24 19:51 07/06/24 20:00 07/06/24 20:00 Temperature 97.9 F Pulse Rate 66 64 Respiratory Rate 20 Blood Pressure 127/52 L Pulse Oximetry 95 Oxygen Delivery Room Air 07/06/24 21:32 07/06/24 21:34 07/07/24 00:00 Temperature Pulse Rate 64 75 Respiratory Rate Blood Pressure 111/66 Pulse Oximetry Oxygen Delivery 07/07/24 04:00 07/07/24 04:12 07/07/24 08:50 Temperature 97.9 F Pulse Rate 65 72 63 Respiratory Rate 20 Blood Pressure 119/56 L Pulse Oximetry 94 Oxygen Delivery Intake/Output Intake/Output: Intake & Output 07/04/24 07/05/24 07/06/24 07/07/24 23:59 23:59 23:59 23:59 Intake Total 1300 1240 980 750 Output Total 2925 1700 700 Balance -1625 -460 280 750 Meds/Results Medications: Active Medications Generic Name Dose Route Start Last Admin Trade Name Freq PRN Reason Stop Dose Admin Acetaminophen 650 mg 07/04/24 14:01 07/04/24 20:57 Acetaminophen 325 Mg Tablet PO 650 mg Q4H PRN Administration Mild Pain (1-3) or Fever Aspirin 81 mg 07/04/24 09:00 07/07/24 08:50 Aspirin 81 Mg Enteric Tablet PO 81 mg QAM APPLE Administration Carvedilol 6.25 mg 07/04/24 21:00 07/07/24 08:50 Carvedilol 6.25 Mg Tablet PO 6.25 mg Q12HR APPLE Administration Clopidogrel Bisulfate 75 mg 07/04/24 09:00 07/07/24 08:51 Clopidogrel Bisulfate 75 Mg Tablet PO 75 mg DAILY APPLE Administration Empagliflozin 10 mg 07/04/24 14:25 07/07/24 08:50 Empagliflozin 10 Mg Tablet PO 10 mg DAILY APPLE Administration Fluoxetine HCl 40 mg 07/04/24 09:00 07/07/24 08:50 Fluoxetine Hcl 20 Mg Capsule PO 40 mg DAILY APPLE Administration Furosemide 40 mg 07/05/24 17:00 07/05/24 17:39 Furosemide 40 Mg Tablet PO 40 mg BID APPLE Administration Levothyroxine Sodium 50 mcg 07/04/24 06:30 07/07/24 06:03 Levothyroxine Sodium 50 Mcg Tablet PO 50 mcg DAILY@0630 APPLE Administration Loratadine 10 mg 07/04/24 14:00 07/07/24 08:50 Loratadine 10 Mg Tablet PO 10 mg QAM APPLE Administration Ondansetron HCl 4 mg 07/05/24 13:03 07/06/24 17:18 Ondansetron Inj 4 Mg/2 Ml Vial IV PUSH 4 mg Q6H PRN Administration Nausea And Vomiting Pantoprazole Sodium 40 mg 07/04/24 09:00 07/07/24 08:51 Pantoprazole 40 Mg Tablet PO 40 mg Q12HR APPLE Administration Polyethylene Glycol 17 gm 07/04/24 14:01 Polyethylene Glycol 3350 17 Gm Powd.Pack PO QAM PRN Constipation Sacubitril/Valsartan 1 tab 07/04/24 21:00 07/07/24 08:50 Sacubitril/Valsartan 24-26 Mg Tablet PO 1 tab Q12HR APPLE Administration Senna/Docusate Sodium 1 tab 07/04/24 07:09 Senna/Docusate Sodium Tablet PO DAILY PRN constipation Spironolactone 25 mg 07/04/24 09:00 07/07/24 08:50 Spironolactone 25 Mg Tablet PO 25 mg QAM APPLE Administration Radiology Results: ITS Impressions Chest X-Ray 07/03/24 11:01 Impression: Clear lungs. Stable cardiomegaly, status post CABG. Chest CTA 07/03/24 15:26 IMPRESSION: 1. No pulmonary embolism. 2. Likely congestive heart failure with cardiomegaly, mild pulmonary edema and small bilateral pleural effusions. Venous Doppler Study 07/04/24 08:23 IMPRESSION: 1: No lower extremity deep venous thrombosis. Labs Labs: Laboratory Results - last 24 hr 07/07/24 05:51 WBC 8.7 RBC 4.80 Hgb 12.9 Hct 41.5 MCV 86.5 MCH 26.9 MCHC 31.1 L RDW 14.2 Plt Count 401 H MPV 9.7 Immature Gran % (Auto) 0.3 Neut % (Auto) 59.0 Lymph % (Auto) 22.5 [place] % (Auto) 10.4 H Eos % (Auto) 6.8 H Baso % (Auto) 1.0 Lymph # (Auto) 1.95 [place] # (Auto) 0.9 H Eos # (Auto) 0.6 H Baso # (Auto) 0.1 Abs Immat Gran (auto) 0.03 Absolute Neuts (auto) 5.1 Absolute Nucleated RBC 0.000 Nucleated RBC % 0.0 Sodium 140 Potassium 3.7 Chloride 98 Carbon Dioxide 26 Anion Gap 16 H BUN 34 H Creatinine 2.89 H Estim Creat Clear Calc 16 Estimated GFR 16 L Glucose 133 H Calcium 9.3 Total Bilirubin 0.8 AST 23 ALT 21 Alkaline Phosphatase 111 Total Protein 8.0 Albumin 4.2 Quality VTE Prophylaxis VTE prophylaxis: mechanical ordered
[2024-07-07] MEDS: ONDANSETRON INJ 4 MG/2 ML VIAL IV PUSH (14:06)
--- NOTE | 2024-07-07 14:13 | P.PNCA_ITS ---
Progress Note: A&P Assessment and Plan (1) Acute on chronic heart failure with mildly reduced ejection fraction (HFmrEF, 41-49%): Code(s): I50.23 - Acute on chronic systolic (congestive) heart failure Status: Acute Plan 1. Acute on chronic heart failure with reduced LVEF of 30-35% per TTE 07/05/2023 2. Coronary artery disease. Inferior STEMI on 02/29/2024 s/p TESSA to the RCA extending to the RPLV branch. S/p 4V CABG on 03/23/2024 with SUTTON to the LAD, radial artery to the OM, SVG to the diagonal and distal LAD in a sequential fashion. 3. Hypertension 4. Hyperlipidemia 5. INDIA on chronic kidney disease 6. GERD 7. Hypothyroidism 8. Crohn's disease PLAN: -Given INDIA on CKD, agree with holding Lasix for now. Once INDIA resolves, then will plan to start Lasix 40mg once daily for maintenance therapy. -Continue Entresto 24/26mg BID. -Continue Spironolactone. -Continue Coreg -Continue Jardiance 10mg once daily. -Continue ASA, Plavix for CAD. Not on statin because of myalgias/statin intolerance. We are working on obtaining Repatha for her as outpatient. -Given LVEF <35%, ordered Life Vest. Will plan to repeat TTE as an outpatient to re-evaluate LVEF in 3 months. Hopeful discharge tomorrow if renal function improves. Recommendations and plan discussed with Hospitalist. Subjective Date/time seen: 07/07/24 14:13 Interval history: Reason for visit: Acute on chronic HFrEF HPI: Sharmila is a patient of [facility] with the following history: 1. Coronary artery disease. Inferior STEMI on 02/29/2024 s/p TESSA to the RCA extending to the RPLV branch. S/p 4V CABG on 03/23/2024 with SUTTON to the LAD, radial artery to the OM, SVG to the diagonal and distal LAD in a sequential fashion. 2. Heart failure with LVEF of 40% per TTE 03/21/2024 3. Hypertension 4. Hyperlipidemia 5. Chronic kidney disease 6. GERD 7. Hypothyroidism 8. Crohn's disease Sharmila presented with worsening dyspnea on exertion. No chest pain. NT pro BNP is >30,000. CXR showed clear lungs. However, CTA shows mild pulmonary edema and small bilateral pleural effusions. EKG shows sinus rhythm, T-wave abnormality in the high lateral leads that is unchanged from before. She has been started on IV Lasix and reports symptomatic improvement. Date of service 07/05: She is feeling well today and denies any shortness of breath, chest pain, palpitations. No edema. She is feeling nauseous because of the potassium pills. Date of service 07/06: Feeling well, no shortness of breath or lower extremity edema. Date of service 07/07: Feeling well. Review of Systems Cardiovascular: Cardiovascular: Reports as per HPI Exam Const: General: comfortable and no acute distress HENMT: Mouth: Yes moist mucous membranes Eyes: General: appearance normal, both eyes and all related structures Sclera: sclerae normal Resp: Effort & Inspection: normal respiratory effort Cardio: Rate: regular rate Rhythm: regular rhythm Other: No lower extremity edema Skin: General skin exam: normal color Neuro: Speech: normal speech Psych: Mental Status: mental status grossly normal Affect: normal affect Objective Data Vital Signs Vital Signs: Vital Signs - 24 hr 07/06/24 16:00 07/06/24 19:51 07/06/24 20:00 Temperature 36.6 C Pulse Rate 69 66 Respiratory Rate 20 Blood Pressure 127/52 L Pulse Oximetry 95 Oxygen Delivery Room Air 07/06/24 20:00 07/06/24 21:32 07/06/24 21:34 Temperature Pulse Rate 64 64 Respiratory Rate Blood Pressure 111/66 Pulse Oximetry Oxygen Delivery 07/07/24 00:00 07/07/24 04:00 07/07/24 04:12 Temperature 36.6 C Pulse Rate 75 65 72 Respiratory Rate 20 Blood Pressure 119/56 L Pulse Oximetry 94 Oxygen Delivery 07/07/24 08:00 07/07/24 08:50 Temperature Pulse Rate 73 63 Respiratory Rate Blood Pressure Pulse Oximetry Oxygen Delivery Intake/Output Intake/Output: Intake & Output 07/04/24 07/05/24 07/06/24 07/07/24 23:59 23:59 23:59 23:59 Intake Total 1300 1240 980 750 Output Total 2925 1700 700 Balance -1625 -460 280 750 Meds/Results Medications: Active Medications Generic Name Dose Route Start Last Admin Trade Name Freq PRN Reason Stop Dose Admin Acetaminophen 650 mg 07/04/24 14:07/04/24 20:57 Acetaminophen 325 Mg Tablet PO 650 mg Q4H PRN Administration Mild Pain (1-3) or Fever Aspirin 81 mg 07/04/24 09:00 07/07/24 08:50 Aspirin 81 Mg Enteric Tablet PO 81 mg QAM APPLE Administration Carvedilol 6.25 mg 07/04/24 21:00 07/07/24 08:50 Carvedilol 6.25 Mg Tablet PO 6.25 mg Q12HR APPLE Administration Clopidogrel Bisulfate 75 mg 07/04/24 09:00 07/07/24 08:51 Clopidogrel Bisulfate 75 Mg Tablet PO 75 mg DAILY APPLE Administration Empagliflozin 10 mg 07/04/24 14:25 07/07/24 08:50 Empagliflozin 10 Mg Tablet PO 10 mg DAILY APPLE Administration Fluoxetine HCl 40 mg 07/04/24 09:00 07/07/24 08:50 Fluoxetine Hcl 20 Mg Capsule PO 40 mg DAILY APPLE Administration Furosemide 40 mg 07/05/24 17:00 07/05/24 17:39 Furosemide 40 Mg Tablet PO 40 mg BID APPLE Administration Levothyroxine Sodium 50 mcg 07/04/24 06:30 07/07/24 06:03 Levothyroxine Sodium 50 Mcg Tablet PO 50 mcg DAILY@0630 APPLE Administration Loratadine 10 mg 07/04/24 14:00 07/07/24 08:50 Loratadine 10 Mg Tablet PO 10 mg QAM APPLE Administration Ondansetron HCl 4 mg 07/05/24 13:03 07/07/24 14:06 Ondansetron Inj 4 Mg/2 Ml Vial IV PUSH 4 mg Q6H PRN Administration Nausea And Vomiting Pantoprazole Sodium 40 mg 07/04/24 09:00 07/07/24 08:51 Pantoprazole 40 Mg Tablet PO 40 mg Q12HR APPLE Administration Polyethylene Glycol 17 gm 07/04/24 14:01 Polyethylene Glycol 3350 17 Gm Powd.Pack PO QAM PRN Constipation Sacubitril/Valsartan 1 tab 07/04/24 21:00 07/07/24 08:50 Sacubitril/Valsartan 24-26 Mg Tablet PO 1 tab Q12HR APPLE Administration Senna/Docusate Sodium 1 tab 07/04/24 07:09 Senna/Docusate Sodium Tablet PO DAILY PRN constipation Spironolactone 25 mg 07/04/24 09:00 07/07/24 08:50 Spironolactone 25 Mg Tablet PO 25 mg QAM APPLE Administration Radiology Results: ITS Impressions Chest X-Ray 07/03/24 11:01 Impression: Clear lungs. Stable cardiomegaly, status post CABG. Chest CTA 07/03/24 15:26 IMPRESSION: 1. No pulmonary embolism. 2. Likely congestive heart failure with cardiomegaly, mild pulmonary edema and small bilateral pleural effusions. Venous Doppler Study 07/04/24 08:23 IMPRESSION: 1: No lower extremity deep venous thrombosis. Labs Labs: Laboratory Results - last 24 hr 07/07/24 05:51 WBC 8.7 RBC 4.80 Hgb 12.9 Hct 41.5 MCV 86.5 MCH 26.9 MCHC 31.1 L RDW 14.2 Plt Count 401 H MPV 9.7 Immature Gran % (Auto) 0.3 Neut % (Auto) 59.0 Lymph % (Auto) 22.5 [place] % (Auto) 10.4 H Eos % (Auto) 6.8 H Baso % (Auto) 1.0 Lymph # (Auto) 1.95 [place] # (Auto) 0.9 H Eos # (Auto) 0.6 H Baso # (Auto) 0.1 Abs Immat Gran (auto) 0.03 Absolute Neuts (auto) 5.1 Absolute Nucleated RBC 0.000 Nucleated RBC % 0.0 Sodium 140 Potassium 3.7 Chloride 98 Carbon Dioxide 26 Anion Gap 16 H BUN 34 H Creatinine 2.89 H Estim Creat Clear Calc 16 Estimated GFR 16 L Glucose 133 H Calcium 9.3 Total Bilirubin 0.8 AST 23 ALT 21 Alkaline Phosphatase 111 Total Protein 8.0 Albumin 4.2
[2024-07-08] VITALS (11 sets, daily range): BP systolic 101–164; BP diastolic 60–74; PULSE 57–71; RESP 18; TEMP 36.1–36.7; O2SAT 98–99
[2024-07-08] MEDS: LEVOTHYROXINE SODIUM 50 MCG TABLET PO (06:08)
[2024-07-08 06:36] LABS: Basophils Absolute Auto 0.1 K/mm3 (0.0-0.1); Eosinophils Absolute Auto 0.6 K/mm3 (0-0.3); Hematocrit 36.8 % (37.0-47.0); Hemoglobin 11.9 g/dL (12.0-15.0); Immature Granulocyte Absolute 0.02 K/mm3 (0.00-0.031); Immature Granulocyte Percent A 0.3 % (0-0.5); Lymphocytes Absolute Auto 1.43 K/mm3 (0.9-3.2); Mean Corpuscular HGB Conc 32.3 g/dl (32-36); Mean Corpuscular Hemoglobin 27.4 pg (26-34); Mean Corpuscular Volume 84.6 fl (80-100); Mean Platelet Volume 9.5 fl (7.4-10.4); Monocytes Absolute Auto 0.7 K/mm3 (0.1-0.6); Monocytes Percent Auto 9.5 % (2.6-8.5); Neutrophils Absolute Auto 4.4 K/mm3 (1.3-6.7); Neutrophils Percent Auto 61.2 % (45.5-73.1); Platelet Count Result 316 k/mm3 (150-375); Red Blood Count 4.35 M/mm3 (4.2-5.4); Red Cell Distribution Width 13.9 % (11.5-14.5); White Blood Count 7.2 K/mm3 (4.5-10.0)
[2024-07-08 07:27] LABS: Potassium 4.4 mmol/L (3.4-5.0)
[2024-07-08 07:32] LABS: Alanine Aminotransferase 17 U/L (6-35); Albumin Level 3.7 g/dL (3.5-5.1); Alkaline Phosphatase 106 U/L (38-126); Anion Gap 9 mmol/L (4-12); Aspartate Amino Transferase 19 U/L (14-36); Bilirubin,Total 0.7 mg/dL (0.2-1.3); Blood Urea Nitrogen 31 mg/dL (7-17); Calcium 8.9 mg/dL (8.4-10.2); Carbon Dioxide 27 mmol/L (22-30); Chloride 97 mmol/L (98-107); Estimated CRCL calculation 20 ml/min; Estimated Glomerular Filt Rate 22; Glucose 129 mg/dL (65-110); Sodium 133 mmol/L (137-145)
[2024-07-08] MEDS: ASPIRIN 81 MG ENTERIC TABLET PO (09:10)
[2024-07-08] MEDS: LORATADINE 10 MG TABLET PO (09:10)
[2024-07-08] MEDS: SACUBITRIL/VALSARTAN 24-26 MG TABLET 1 TAB PO ×2 (09:10→21:01)
[2024-07-08] MEDS: CLOPIDOGREL BISULFATE 75 MG TABLET PO (09:10)
[2024-07-08] MEDS: carvediloL 6.25 MG TABLET PO ×2 (09:10→21:00)
[2024-07-08] MEDS: SPIRONOLACTONE 25 MG TABLET PO (09:10)
[2024-07-08] MEDS: PANTOPRAZOLE 40 MG TABLET PO ×2 (09:10→21:01)
[2024-07-08] MEDS: EMPAGLIFLOZIN 10 MG TABLET PO (09:10)
[2024-07-08] MEDS: FLUoxetine HCL 20 MG CAPSULE 40 MG PO (09:11)
--- NOTE | 2024-07-08 10:15 | P.PNIM_ITS ---
Progress Note: A&P Assessment and Plan (1) Acute exacerbation of CHF (congestive heart failure): Code(s): I50.9 - Heart failure, unspecified Status: Acute Assessment and Plan: * BNP > 30,000 * Furosemide 40 meq IVP q 12 and Spironolactone 25 mg PO qam. Switched Furosemide 40 mg PO BID on 07/05/24. Hold Furosemide today 07/06 due to increase Creatinine of 2.32. * Telemetry- SR 68. * Daily weights. * Cardiology consult. * Stop Amlodipine 5 mg PO daily to allow optimization of heart failure GDMT on 07/04/24. * Stop Losartan 25 mg PO daily, start Entresto 24/26 mg PO BID on 07/04/24. * Stop Metoprolol 12.5 mg PO daily, switch to Coreg given elevated blood pressures on 07/04/24. . * Add Jardiance 10 mg PO daily on 07/04/24. * monitor labs. * Echocardiogram today showed: Summary 1. The left ventricle is normal in size with severely reduced systolic function. There is severe concentric left ventricular hypertrophy. The left ventricular ejection fraction is visually estimated to be 30-35%. 2. The right ventricle is normal in size with mildly reduced systolic function. * Cardiology ordered a Life Vest given LVEF <35%, life vest in place. Will plan to repeat TTE as an outpatient to re-evaluate LVEF in 3 months. (2) Acute kidney injury superimposed on chronic kidney disease: Code(s): N17.9 - Acute kidney failure, unspecified; N18.9 - Chronic kidney disease, unspecified Status: Acute Assessment and Plan: * 07/08/24: BUN 31, Creatinine 2.20, & GFR 22. Improving. Continue holding Lasix. Encourage patient to drink water. * 07/07/24: BUN 34, Creatinine 2.89, & GFR 16. Continue holding Lasix. Encourage patient to drink water. * 07/06/24:BUN 28, Creatinine 2.32, & GFR 21. Holding Lasix. * 07/05/24:BUN 25, Creatinine 1.77, & GFR 28. * 07/04/24: BUN 26, Creatinine 1.62, & GFR 26. (3) History of myocardial infarction: Code(s): I25.2 - Old myocardial infarction Status: Acute Assessment and Plan: * Inferior STEMI on 02/29/24. * Aspirin EC 81 mg PO daily and Plavix 75 mg PO daily. (4) History of coronary artery bypass graft: Code(s): Z95.1 - Presence of aortocoronary bypass graft Status: Acute Assessment and Plan: * CABG 4 vessel on 03/23/24 * Has been attending cardiac rehab outpatient. * Aspirin EC 81 mg PO daily and Plavix 75 mg PO daily. (5) Essential (primary) hypertension: Code(s): I10 - Essential (primary) hypertension Status: Acute Assessment and Plan: * Stop Amlodipine 5 mg PO daily to allow optimization of heart failure GDMT on 07/04/24. * Stop Losartan 25 mg PO daily, start Entresto 24/26 mg PO BID on 07/04/24. * Stop Metoprolol 12.5 mg PO daily, switch to Coreg given elevated blood pressures on 07/04/24. * Continue Spironolactone 25 mg PO qam. * Add Jardiance 10 mg PO daily on 07/04/24. * Blood pressure 157/74. (6) Hypothyroidism: Code(s): E03.9 - Hypothyroidism, unspecified Status: Acute Assessment and Plan: * Levothyroxine 50 mcg PO daily. (7) GERD (gastroesophageal reflux disease): Code(s): K21.9 - Gastro-esophageal reflux disease without esophagitis Status: Acute Assessment and Plan: * Pantoprazole 40 mg PO q 12. (8) Allergic rhinitis: Code(s): J30.9 - Allergic rhinitis, unspecified Status: Acute Assessment and Plan: * Loratadine 10 mg PO daily. Subjective Date/time seen: 07/08/24 10:15 Interval history: Patient denies chest pain, palpitations, shortness of breath, headache, dizziness, nausea, or vomiting. Legs are feeling strong. Patient reports that she feels a little tired today and would like to get a shower. Patient reports she drank more water yesterday. Review of Systems Review of Systems: All systems reviewed & are unremarkable except as noted in HPI and below Exam Const: General: comfortable and no acute distress Eyes: Sclera: sclerae normal Resp: Effort & Inspection: normal respiratory effort Auscultation: clear to auscultation bilaterally Cardio: Rate: regular rate Rhythm: regular rhythm Other: Telemetry SR 67. Life vest in place. GI: GI Palp: Yes Soft to palpation Auscultation: normal bowel sounds Skin: General skin exam: no rashes or lesions noted Neuro: Speech: normal speech Extrem: General: no pedal edema Psych: Mental Status: mental status grossly normal Affect: normal affect Objective Data Vital Signs Vital Signs: Vital Signs - 24 hr 07/07/24 12:00 07/07/24 14:22 07/07/24 16:00 Temperature 97.7 F Pulse Rate 63 61 60 Respiratory Rate 18 Blood Pressure 107/59 L Pulse Oximetry 98 Oxygen Delivery 07/07/24 20:00 07/07/24 20:00 07/07/24 20:36 Temperature 97.9 F Pulse Rate 60 60 Respiratory Rate 18 Blood Pressure 156/62 H Pulse Oximetry 98 Oxygen Delivery Room Air 07/07/24 21:23 07/08/24 00:00 07/08/24 04:00 Temperature Pulse Rate 64 71 64 Respiratory Rate Blood Pressure Pulse Oximetry Oxygen Delivery 07/08/24 05:23 07/08/24 09:10 Temperature 97 F L Pulse Rate 63 67 Respiratory Rate 18 Blood Pressure 157/74 H Pulse Oximetry 98 Oxygen Delivery Intake/Output Intake/Output: Intake & Output 07/05/24 07/06/24 07/07/24 07/08/24 23:59 23:59 23:59 23:59 Intake Total 4482 029 6662 300 Output Total 1700 700 500 Balance -793 606 4062 300 Meds/Results Medications: Active Medications Generic Name Dose Route Start Last Admin Trade Name Freq PRN Reason Stop Dose Admin Acetaminophen 650 mg 07/04/24 14:01 07/04/24 20:57 Acetaminophen 325 Mg Tablet PO 650 mg Q4H PRN Administration Mild Pain (1-3) or Fever Aspirin 81 mg 07/04/24 09:00 07/08/24 09:10 Aspirin 81 Mg Enteric Tablet PO 81 mg QAM APPLE Administration Carvedilol 6.25 mg 07/04/24 21:00 07/08/24 09:10 Carvedilol 6.25 Mg Tablet PO 6.25 mg Q12HR APPLE Administration Clopidogrel Bisulfate 75 mg 07/04/24 09:00 07/08/24 09:10 Clopidogrel Bisulfate 75 Mg Tablet PO 75 mg DAILY APPLE Administration Empagliflozin 10 mg 07/04/24 14:25 07/08/24 09:10 Empagliflozin 10 Mg Tablet PO 10 mg DAILY APPLE Administration Fluoxetine HCl 40 mg 07/04/24 09:00 07/08/24 09:11 Fluoxetine Hcl 20 Mg Capsule PO 40 mg DAILY APPLE Administration Furosemide 40 mg 07/05/24 17:00 07/05/24 17:39 Furosemide 40 Mg Tablet PO 40 mg BID APPLE Administration Levothyroxine Sodium 50 mcg 07/04/24 06:30 07/08/24 06:08 Levothyroxine Sodium 50 Mcg Tablet PO 50 mcg DAILY@0630 APPLE Administration Loratadine 10 mg 07/04/24 14:00 07/08/24 09:10 Loratadine 10 Mg Tablet PO 10 mg QAM APPLE Administration Ondansetron HCl 4 mg 07/05/24 13:03 07/07/24 14:06 Ondansetron Inj 4 Mg/2 Ml Vial IV PUSH 4 mg Q6H PRN Administration Nausea And Vomiting Pantoprazole Sodium 40 mg 07/04/24 09:00 07/08/24 09:10 Pantoprazole 40 Mg Tablet PO 40 mg Q12HR APPLE Administration Polyethylene Glycol 17 gm 07/04/24 14:01 Polyethylene Glycol 3350 17 Gm Powd.Pack PO QAM PRN Constipation Sacubitril/Valsartan 1 tab 07/04/24 21:00 07/08/24 09:10 Sacubitril/Valsartan 24-26 Mg Tablet PO 1 tab Q12HR APPLE Administration Senna/Docusate Sodium 1 tab 07/04/24 07:09 Senna/Docusate Sodium Tablet PO DAILY PRN constipation Spironolactone 25 mg 07/04/24 09:00 07/08/24 09:10 Spironolactone 25 Mg Tablet PO 25 mg QAM APPLE Administration Radiology Results: ITS Impressions Chest X-Ray 07/03/24 11:01 Impression: Clear lungs. Stable cardiomegaly, status post CABG. Chest CTA 07/03/24 15:26 IMPRESSION: 1. No pulmonary embolism. 2. Likely congestive heart failure with cardiomegaly, mild pulmonary edema and small bilateral pleural effusions. Venous Doppler Study 07/04/24 08:23 IMPRESSION: 1: No lower extremity deep venous thrombosis. Labs Labs: Laboratory Results - last 24 hr 07/08/24 06:25 WBC 7.2 RBC 4.35 Hgb 11.9 L Hct 36.8 L MCV 84.6 MCH 27.4 MCHC 32.3 RDW 13.9 Plt Count 316 MPV 9.5 Immature Gran % (Auto) 0.3 Neut % (Auto) 61.2 Lymph % (Auto) 20.0 [place] % (Auto) 9.5 H Eos % (Auto) 8.0 H Baso % (Auto) 1.0 Lymph # (Auto) 1.43 [place] # (Auto) 0.7 H Eos # (Auto) 0.6 H Baso # (Auto) 0.1 Abs Immat Gran (auto) 0.02 Absolute Neuts (auto) 4.4 Absolute Nucleated RBC 0.000 Nucleated RBC % 0.0 Sodium 133 L Potassium 4.4 Chloride 97 L Carbon Dioxide 27 Anion Gap 9 BUN 31 H Creatinine 2.20 H Estim Creat Clear Calc 20 Estimated GFR 22 L Glucose 129 H Calcium 8.9 Total Bilirubin 0.7 AST 19 ALT 17 Alkaline Phosphatase 106 Total Protein 7.0 Albumin 3.7 Quality VTE Prophylaxis VTE prophylaxis: mechanical ordered
[2024-07-09] VITALS: PULSE 72
[2024-07-09 04:00] VITALS: PULSE 76
[2024-07-09] MEDS: LEVOTHYROXINE SODIUM 50 MCG TABLET PO (05:33)
[2024-07-09 06:00] VITALS: BP 154/77; PULSE 68; RESP 18; TEMP 36.1; O2SAT 98
[2024-07-09 06:00] LABS: Basophils Absolute Auto 0.1 K/mm3 (0.0-0.1); Basophils Percent Auto 1.1 % (0.2-1.2); Eosinophils Absolute Auto 0.6 K/mm3 (0-0.3); Eosinophils Percent Auto 7.7 % (0-4.4); Hematocrit 36.3 % (37.0-47.0); Hemoglobin 11.6 g/dL (12.0-15.0); Immature Granulocyte Absolute 0.03 K/mm3 (0.00-0.031); Immature Granulocyte Percent A 0.4 % (0-0.5); Lymphocytes Absolute Auto 1.42 K/mm3 (0.9-3.2); Lymphocytes Percent Auto 19.5 % (18.3-44.2); Mean Corpuscular Volume 84.4 fl (80-100); Mean Platelet Volume 10.1 fl (7.4-10.4); Monocytes Absolute Auto 0.9 K/mm3 (0.1-0.6); Monocytes Percent Auto 11.7 % (2.6-8.5); Neutrophils Absolute Auto 4.3 K/mm3 (1.3-6.7); Neutrophils Percent Auto 59.6 % (45.5-73.1); Platelet Count Result 299 k/mm3 (150-375); Red Cell Distribution Width 14.1 % (11.5-14.5); White Blood Count 7.3 K/mm3 (4.5-10.0)
[2024-07-09 06:11] LABS: Alanine Aminotransferase 15 U/L (6-35); Albumin Level 3.7 g/dL (3.5-5.1); Alkaline Phosphatase 104 U/L (38-126); Anion Gap 10 mmol/L (4-12); Aspartate Amino Transferase 18 U/L (14-36); Bilirubin,Total 0.7 mg/dL (0.2-1.3); Blood Urea Nitrogen 27 mg/dL (7-17); Calcium 8.7 mg/dL (8.4-10.2); Carbon Dioxide 24 mmol/L (22-30); Chloride 100 mmol/L (98-107); Estimated CRCL calculation 25 ml/min; Estimated Glomerular Filt Rate 28; Glucose 130 mg/dL (65-110); Potassium 4.2 mmol/L (3.4-5.0); Sodium 134 mmol/L (137-145)
[2024-07-09 09:17] LABS: Magnesium 1.9 mg/dL (1.6-2.3)
[2024-07-09] MEDS: ASPIRIN 81 MG ENTERIC TABLET PO (09:36)
[2024-07-09] MEDS: EMPAGLIFLOZIN 10 MG TABLET PO (09:36)
[2024-07-09] MEDS: CLOPIDOGREL BISULFATE 75 MG TABLET PO (09:36)
[2024-07-09] MEDS: PANTOPRAZOLE 40 MG TABLET PO (09:36)
[2024-07-09] MEDS: LORATADINE 10 MG TABLET PO (09:36)
[2024-07-09] MEDS: SACUBITRIL/VALSARTAN 24-26 MG TABLET 1 TAB PO (09:36)
[2024-07-09 09:37] VITALS: PULSE 73
[2024-07-09] MEDS: carvediloL 6.25 MG TABLET PO (09:37)
[2024-07-09] MEDS: SPIRONOLACTONE 25 MG TABLET PO (09:37)
[2024-07-09] MEDS: FLUoxetine HCL 20 MG CAPSULE 40 MG PO (09:38)
--- NOTE | 2024-07-09 10:15 | P.PNIM_ITS ---
Subjective Date/time seen: 07/09/24 10:15 Review of Systems Review of Systems: All systems reviewed & are unremarkable except as noted in HPI and below Objective Data Vital Signs Vital Signs: Vital Signs - 24 hr 07/08/24 12:00 07/08/24 15:03 07/08/24 16:00 Temperature 97.5 F L Pulse Rate 59 L 58 L 57 L Respiratory Rate 18 Blood Pressure 101/61 Pulse Oximetry 98 Oxygen Delivery 07/08/24 20:00 07/08/24 20:00 07/08/24 21:00 Temperature Pulse Rate 61 70 Respiratory Rate Blood Pressure Pulse Oximetry Oxygen Delivery Room Air 07/08/24 21:41 07/09/24 00:00 07/09/24 04:00 Temperature 98.1 F Pulse Rate 66 72 76 Respiratory Rate 18 Blood Pressure 164/60 H Pulse Oximetry 99 Oxygen Delivery 07/09/24 06:00 07/09/24 09:37 Temperature 96.9 F L Pulse Rate 68 73 Respiratory Rate 18 Blood Pressure 154/77 H Pulse Oximetry 98 Oxygen Delivery Intake/Output Intake/Output: Intake & Output 07/06/24 07/07/24 07/08/24 07/09/24 23:59 23:59 23:59 23:59 Intake Total 980 1610 1020 200 Output Total 700 722 103 7773 Balance 280 1110 370 -800 Meds/Results Medications: Active Medications Generic Name Dose Route Start Last Admin Trade Name Freq PRN Reason Stop Dose Admin Acetaminophen 650 mg 07/04/24 14:01 07/04/24 20:57 Acetaminophen 325 Mg Tablet PO 650 mg Q4H PRN Administration Mild Pain (1-3) or Fever Aspirin 81 mg 07/04/24 09:00 07/09/24 09:36 Aspirin 81 Mg Enteric Tablet PO 81 mg QAM APPLE Administration Carvedilol 6.25 mg 07/04/24 21:00 07/09/24 09:37 Carvedilol 6.25 Mg Tablet PO 6.25 mg Q12HR APPLE Administration Clopidogrel Bisulfate 75 mg 07/04/24 09:00 07/09/24 09:36 Clopidogrel Bisulfate 75 Mg Tablet PO 75 mg DAILY APPLE Administration Empagliflozin 10 mg 07/04/24 14:25 07/09/24 09:36 Empagliflozin 10 Mg Tablet PO 10 mg DAILY APPLE Administration Fluoxetine HCl 40 mg 07/04/24 09:00 07/09/24 09:38 Fluoxetine Hcl 20 Mg Capsule PO 40 mg DAILY APPLE Administration Levothyroxine Sodium 50 mcg 07/04/24 06:30 07/09/24 05:33 Levothyroxine Sodium 50 Mcg Tablet PO 50 mcg DAILY@0630 APPLE Administration Loratadine 10 mg 07/04/24 14:00 07/09/24 09:36 Loratadine 10 Mg Tablet PO 10 mg QAM APPLE Administration Ondansetron HCl 4 mg 07/05/24 13:03 07/07/24 14:06 Ondansetron Inj 4 Mg/2 Ml Vial IV PUSH 4 mg Q6H PRN Administration Nausea And Vomiting Pantoprazole Sodium 40 mg 07/04/24 09:00 07/09/24 09:36 Pantoprazole 40 Mg Tablet PO 40 mg Q12HR APPLE Administration Polyethylene Glycol 17 gm 07/04/24 14:01 Polyethylene Glycol 3350 17 Gm Powd.Pack PO QAM PRN Constipation Sacubitril/Valsartan 1 tab 07/04/24 21:00 07/09/24 09:36 Sacubitril/Valsartan 24-26 Mg Tablet PO 1 tab Q12HR APPLE Administration Senna/Docusate Sodium 1 tab 07/04/24 07:09 Senna/Docusate Sodium Tablet PO DAILY PRN constipation Spironolactone 25 mg 07/04/24 09:00 07/09/24 09:37 Spironolactone 25 Mg Tablet PO 25 mg QAM APPLE Administration Radiology Results: ITS Impressions Chest X-Ray 07/03/24 11:01 Impression: Clear lungs. Stable cardiomegaly, status post CABG. Chest CTA 07/03/24 15:26 IMPRESSION: 1. No pulmonary embolism. 2. Likely congestive heart failure with cardiomegaly, mild pulmonary edema and small bilateral pleural effusions. Venous Doppler Study 07/04/24 08:23 IMPRESSION: 1: No lower extremity deep venous thrombosis. Labs Labs: Laboratory Results - last 24 hr 07/09/24 07/09/24 05:28 05:30 WBC 7.3 RBC 4.30 Hgb 11.6 L Hct 36.3 L MCV 84.4 MCH 27.0 MCHC 32.0 RDW 14.1 Plt Count 299 MPV 10.1 Immature Gran % (Auto) 0.4 Neut % (Auto) 59.6 Lymph % (Auto) 19.5 [place] % (Auto) 11.7 H Eos % (Auto) 7.7 H Baso % (Auto) 1.1 Lymph # (Auto) 1.42 [place] # (Auto) 0.9 H Eos # (Auto) 0.6 H Baso # (Auto) 0.1 Abs Immat Gran (auto) 0.03 Absolute Neuts (auto) 4.3 Absolute Nucleated RBC 0.000 Nucleated RBC % 0.0 Sodium 134 L Potassium 4.2 Chloride 100 Carbon Dioxide 24 Anion Gap 10 BUN 27 H Creatinine 1.78 H Estim Creat Clear Calc 25 Estimated GFR 28 L Glucose 130 H Calcium 8.7 Magnesium 1.9 Total Bilirubin 0.7 AST 18 ALT 15 Alkaline Phosphatase 104 Total Protein 7.0 Albumin 3.7
--- NOTE | 2024-07-09 10:39 | PCNFU ---
Nutrition Follow-Up Complete: Inadequate Oral Intake as related to CHF exacerbation as evidenced by 15 ibs weight loss in 2 months and poor po intake. Goal: Meet estimated nutritional needs. Patient is progressing towards goal. We will continue current goal. Pt current nutrition is Heart Healthy. Last recorded weight is 68.3 kg, no new weight to report. Bowel Motility:+BM reported 2/3 Labs Reviewed:Glu 130, Cr 1.78. BUN 27, GFR 28, Na 134 Meds Noted: Jardiance, Protonix, Coreg Skin: WNL Additional Notes: Patient remains on a heart healthy diet. Oral Intake has been fair 25-75% of meals. Possible discharge today. Glu 130 does have history of DM, could benefit from [facility] diet. Will monitor weight, labs, skin, diet orders, meds every 5 days.
[2024-07-09 14:00] VITALS: BP 127/96; PULSE 59; RESP 16; TEMP 36.7; O2SAT 96
--- NOTE | 2024-07-09 14:47 | P.PNCA_ITS ---
Progress Note: A&P Assessment and Plan (1) Acute exacerbation of CHF (congestive heart failure): Code(s): I50.9 - Heart failure, unspecified Status: Acute (2) Ischemic cardiomyopathy: Code(s): I25.5 - Ischemic cardiomyopathy Status: Acute (3) Atherosclerotic heart disease of [place] coronary artery without angina pectoris: Qualifiers: [place] vs. transplanted heart: [place] heart Qualified Code(s): I25.10 - Atherosclerotic heart disease of [place] coronary artery without angina pectoris Code(s): I25.10 - Atherosclerotic heart disease of [place] coronary artery without angina pectoris Status: Acute (4) History of coronary artery bypass graft: Code(s): Z95.1 - Presence of aortocoronary bypass graft Status: Acute (5) Hyperlipidemia: Code(s): E78.5 - Hyperlipidemia, unspecified Status: Acute Plan 68-year-old woman with CAD status post PCI to RCA in setting of STEMI followed by 4 vessel CABG (SUTTON-LAD, radial to OM, sequential SVG to diagonal and distal LAD), ischemic cardiomyopathy (LVEF 30-35%), hypertension, and hyperlipidemia initially presented with shortness of breath admitted for acute decompensated systolic heart failure CAD status post PCI followed by CABG -continue aspirin 81 mg p.o. daily and Plavix 75 mg p.o. daily Acute on chronic systolic heart failure -continue Entresto 24-26 mg p.o. b.i.d., carvedilol 6.25 mg p.o. b.i.d., spironolactone 25 mg p.o. daily, and Jardiance 10 mg p.o. daily -can resume Lasix 40 mg p.o. daily tomorrow Hyperlipidemia -unable to tolerate statins and currently working on outpatient PCSK9 inhibitors Hypertension -control on Entresto and carvedilol Patient can be discharged to start oral Lasix 40 mg p.o. daily tomorrow and follow up outpatient with Dr. Hall in 1-2 weeks Subjective Date/time seen: 07/09/24 14:47 Interval history: Denies any chest pain and shortness of breath. No significant orthopnea Exam Const: General: comfortable Eyes: EOM: EOMs intact bilaterally Neck: Neck: no JVD Resp: Effort & Inspection: normal respiratory effort Auscultation: clear to auscultation bilaterally Cardio: Rate: regular rate Rhythm: regular rhythm GI: GI Palp: Yes Soft to palpation Neuro: Motor exam (neuro): 5/5 motor strength present throughout Extrem: General: no pedal edema Objective Data Vital Signs Vital Signs: Vital Signs - 24 hr 07/08/24 15:03 07/08/24 16:00 07/08/24 20:00 Temperature 36.4 C L Pulse Rate 58 L 57 L Respiratory Rate 18 Blood Pressure 101/61 Pulse Oximetry 98 Oxygen Delivery Room Air 07/08/24 20:00 07/08/24 21:00 07/08/24 21:41 Temperature 36.7 C Pulse Rate 61 70 66 Respiratory Rate 18 Blood Pressure 164/60 H Pulse Oximetry 99 Oxygen Delivery 07/09/24 00:00 07/09/24 04:00 07/09/24 06:00 Temperature 36.1 C L Pulse Rate 72 76 68 Respiratory Rate 18 Blood Pressure 154/77 H Pulse Oximetry 98 Oxygen Delivery 07/09/24 09:37 Temperature Pulse Rate 73 Respiratory Rate Blood Pressure Pulse Oximetry Oxygen Delivery Intake/Output Intake/Output: Intake & Output 07/06/24 07/07/24 07/08/24 07/09/24 23:59 23:59 23:59 23:59 Intake Total 980 1610 1020 440 Output Total 700 363 725 7808 Balance 280 1110 370 -1060 Meds/Results Medications: Active Medications Generic Name Dose Route Start Last Admin Trade Name Freq PRN Reason Stop Dose Admin Acetaminophen 650 mg 07/04/24 14:01 07/04/24 20:57 Acetaminophen 325 Mg Tablet PO 650 mg Q4H PRN Administration Mild Pain (1-3) or Fever Aspirin 81 mg 07/04/24 09:00 07/09/24 09:36 Aspirin 81 Mg Enteric Tablet PO 81 mg QAM APPLE Administration Carvedilol 6.25 mg 07/04/24 21:00 07/09/24 09:37 Carvedilol 6.25 Mg Tablet PO 6.25 mg Q12HR APPLE Administration Clopidogrel Bisulfate 75 mg 07/04/24 09:00 07/09/24 09:36 Clopidogrel Bisulfate 75 Mg Tablet PO 75 mg DAILY APPLE Administration Empagliflozin 10 mg 07/04/24 14:25 07/09/24 09:36 Empagliflozin 10 Mg Tablet PO 10 mg DAILY APPLE Administration Fluoxetine HCl 40 mg 07/04/24 09:00 07/09/24 09:38 Fluoxetine Hcl 20 Mg Capsule PO 40 mg DAILY APPLE Administration Levothyroxine Sodium 50 mcg 07/04/24 06:30 07/09/24 05:33 Levothyroxine Sodium 50 Mcg Tablet PO 50 mcg DAILY@0630 APPLE Administration Loratadine 10 mg 07/04/24 14:00 07/09/24 09:36 Loratadine 10 Mg Tablet PO 10 mg QAM APPLE Administration Ondansetron HCl 4 mg 07/05/24 13:03 07/07/24 14:06 Ondansetron Inj 4 Mg/2 Ml Vial IV PUSH 4 mg Q6H PRN Administration Nausea And Vomiting Pantoprazole Sodium 40 mg 07/04/24 09:00 07/09/24 09:36 Pantoprazole 40 Mg Tablet PO 40 mg Q12HR APPLE Administration Polyethylene Glycol 17 gm 07/04/24 14:01 Polyethylene Glycol 3350 17 Gm Powd.Pack PO QAM PRN Constipation Sacubitril/Valsartan 1 tab 07/04/24 21:00 07/09/24 09:36 Sacubitril/Valsartan 24-26 Mg Tablet PO 1 tab Q12HR APPLE Administration Senna/Docusate Sodium 1 tab 07/04/24 07:09 Senna/Docusate Sodium Tablet PO DAILY PRN constipation Spironolactone 25 mg 07/04/24 09:00 07/09/24 09:37 Spironolactone 25 Mg Tablet PO 25 mg QAM APPLE Administration Radiology Results: ITS Impressions Chest X-Ray 07/03/24 11:01 Impression: Clear lungs. Stable cardiomegaly, status post CABG. Chest CTA 07/03/24 15:26 IMPRESSION: 1. No pulmonary embolism. 2. Likely congestive heart failure with cardiomegaly, mild pulmonary edema and small bilateral pleural effusions. Venous Doppler Study 07/04/24 08:23 IMPRESSION: 1: No lower extremity deep venous thrombosis. Labs Labs: Laboratory Results - last 24 hr 07/09/24 07/09/24 05:28 05:30 WBC 7.3 RBC 4.30 Hgb 11.6 L Hct 36.3 L MCV 84.4 MCH 27.0 MCHC 32.0 RDW 14.1 Plt Count 299 MPV 10.1 Immature Gran % (Auto) 0.4 Neut % (Auto) 59.6 Lymph % (Auto) 19.5 Miner % (Auto) 11.7 H Eos % (Auto) 7.7 H Baso % (Auto) 1.1 Lymph # (Auto) 1.42 Miner # (Auto) 0.9 H Eos # (Auto) 0.6 H Baso # (Auto) 0.1 Abs Immat Gran (auto) 0.03 Absolute Neuts (auto) 4.3 Absolute Nucleated RBC 0.000 Nucleated RBC % 0.0 Sodium 134 L Potassium 4.2 Chloride 100 Carbon Dioxide 24 Anion Gap 10 BUN 27 H Creatinine 1.78 H Estim Creat Clear Calc 25 Estimated GFR 28 L Glucose 130 H Calcium 8.7 Magnesium 1.9 Total Bilirubin 0.7 AST 18 ALT 15 Alkaline Phosphatase 104 Total Protein 7.0 Albumin 3.7
--- NOTE | 2024-07-09 15:35 | P.DS_ITS ---
DS: Admitting Diagnosis Discharge Date 07/09/2024 Admitting Diagnosis Shortness of breath DS: Discharge Diagnosis Discharge Diagnosis (1) Acute exacerbation of CHF (congestive heart failure): Code(s): I50.9 - Heart failure, unspecified Status: Acute (2) Acute kidney injury superimposed on chronic kidney disease: Code(s): N17.9 - Acute kidney failure, unspecified; N18.9 - Chronic kidney disease, unspecified Status: Acute (3) History of myocardial infarction: Code(s): I25.2 - Old myocardial infarction Status: Acute (4) History of coronary artery bypass graft: Code(s): Z95.1 - Presence of aortocoronary bypass graft Status: Acute (5) Essential (primary) hypertension: Code(s): I10 - Essential (primary) hypertension Status: Acute DS: Summary Hospital Course Hospital Course: * Afebrile with no leukocytosis, hemoglobin 9.9 which is similar to baseline. D- dimer 1.41, CTA was negative for PE but did show cardiomegaly and pulmonary edema consistent with CHF. LE dopplers negative for a DVT. Patient's creatinine was 1.6 which is similar to her baseline. Patient does have an elevated BNP of greater than 30,000. Patient was negative for influenza, RSV, and for COVID. Patient has a low LVEF of 40% on 03/21/24 per EMR, patient was unaware for diagnosis of CHF. Patient desatted in the ER into the mid 80's. Currently Sa02 97% on RA. ECG showed Sinus tracy 59 with possible anterior infarct, probably old, QTc 476. Venous dopplers negative. * Furosemide 40 meq IVP q 12 and Spironolactone 25 mg PO qam. Switched Furosemide 40 mg PO BID on 07/05/24. Hold Furosemide today 07/06 due to increase Creatinine of 2.32. Creatinine improved to 1.78. * Telemetry- SR 68. * Daily weights. * Cardiology followed. * Stop Amlodipine 5 mg PO daily to allow optimization of heart failure GDMT on 07/04/24. * Stop Losartan 25 mg PO daily, start Entresto 24/26 mg PO BID on 07/04/24. * Stop Metoprolol 12.5 mg PO daily, switch to Coreg given elevated blood pressures on 07/04/24. . * Add Jardiance 10 mg PO daily on 07/04/24. * Echocardiogram today showed: Summary 1. The left ventricle is normal in size with severely reduced systolic function. There is severe concentric left ventricular hypertrophy. The left ventricular ejection fraction is visually estimated to be 30-35%. 2. The right ventricle is normal in size with mildly reduced systolic function. * Cardiology ordered a Life Vest given LVEF <35%, life vest in place. Will plan to repeat TTE as an outpatient to re-evaluate LVEF in 3 months. Status at Discharge Functional status at discharge: independent ambulation Overall status at discharge: patient is progressing back to baseline Time Spent with Patient Time attestation: Total time spent providing and/or coordinating discharge services: Time spent: Greater than 30 minutes Exam Const: General: comfortable and no acute distress Resp: Effort & Inspection: normal respiratory effort Auscultation: clear to auscultation bilaterally Cardio: Rate: regular rate Rhythm: regular rhythm Other: Life Vest in place. GI: GI Palp: Yes Soft to palpation Auscultation: normal bowel sounds Skin: General skin exam: no rashes or lesions noted Neuro: General: gait normal Extrem: General: no pedal edema Psych: Mental Status: mental status grossly normal Affect: normal affect DS: Data Data Completed and Pending Labs on day of discharge: Labs from last 24 hours 07/09/24 07/09/24 05:30 05:28 WBC 7.3 RBC 4.30 Hgb 11.6 L Hct 36.3 L MCV 84.4 MCH 27.0 MCHC 32.0 RDW 14.1 Plt Count 299 MPV 10.1 Immature Gran % (Auto) 0.4 Neut % (Auto) 59.6 Lymph % (Auto) 19.5 Bureau % (Auto) 11.7 H Eos % (Auto) 7.7 H Baso % (Auto) 1.1 Lymph # (Auto) 1.42 Bureau # (Auto) 0.9 H Eos # (Auto) 0.6 H Baso # (Auto) 0.1 Abs Immat Gran (auto) 0.03 Absolute Neuts (auto) 4.3 Absolute Nucleated RBC 0.000 Nucleated RBC % 0.0 Sodium 134 L Potassium 4.2 Chloride 100 Carbon Dioxide 24 Anion Gap 10 BUN 27 H Creatinine 1.78 H Estim Creat Clear Calc 25 Estimated GFR 28 L Glucose 130 H Calcium 8.7 Magnesium 1.9 Total Bilirubin 0.7 AST 18 ALT 15 Alkaline Phosphatase 104 Total Protein 7.0 Albumin 3.7 Discharge Plan Discharge Attending physician on discharge: Kishan Springer Consulting providers: Allan Hall Discharging Clinician: Ester Sousa Anticipated Discharge Date/Time: 07/09/24 16:00 Patient Disposition: Home, Self-Care Activity: may shower and as tolerated Diet: heart healthy Discharge Instructions: * Wear Life Vest as instructed. * Weigh yourself daily and record. If you gain 1 pound a day for 3 days or 3 pounds in one day notify your provider. Take your weight recording to provider appointments. * Report to provider if you have worsening shortness of breath or legs feel weak. * Start Furosemide on 07/10/24. Thank you for entrusting [facility] with your healthcare! Patient Instructions: Antibiotic Form, Carvedilol (By mouth), Empagliflozin (By mouth), Sacubitril/Valsartan (By mouth), Heart Failure (DC), Heart Healthy Diet (DC) Patient Language: Maltese Stand Alone Forms: General Discharge Information Follow-up/Referrals: Jovi Mendiola MD [Primary Care Provider] - 1 Week Allan Hall MD [Physician] - 1 Week Discharge Medications: New sacubitril-valsartan [Entresto] 24-26 mg Tablet 1 tablet PO Q12HR Qty: 60 0RF carvedilol [Coreg] 6.25 mg Tablet 6.25 mg PO Q12HR Qty: 60 0RF Jardiance 10 mg Tablet 10 mg PO DAILY Qty: 30 0RF furosemide 40 mg tablet 40 mg PO DAILY Qty: 30 0RF Continued clopidogrel 75 mg tablet 75 mg PO DAILY sennosides-docusate sodium [Stimulant Laxative Plus] 8.6-50 mg tablet 1 tab-cap PO DAILY PRN (Reason: constipation) omeprazole 40 mg capsule,delayed release(DR/EC) 40 mg PO DAILY levothyroxine 75 mcg tablet 50 mcg PO DAILY ZzzQuil 50 mg/30 mL Liquid 50 mg PO HS PRN (Reason: Insomnia) aspirin 81 mg Tablet,Delayed Release (Dr/Ec) 81 mg PO QAM 30 Days Qty: 30 11RF spironolactone 25 mg Tablet 25 mg PO QAM Qty: 90 3RF fluoxetine 40 mg capsule 40 mg PO DAILY Qty: 90 0RF Discontinued amlodipine 5 mg tablet 5 mg PO DAILY losartan 25 mg tablet 25 mg PO DAILY metoprolol tartrate 25 mg tablet 12.5 mg PO Q1D atorvastatin 40 mg Tablet 80 mg PO DAILY 30 Days Qty: 60 11RF Date of admission: 07/04/24 10:50 Primary Care Provider: Jovi Mendiola Admitting Provider: Boom Shirley Attending physician on admission: Boom Shirley Condition: Stable Hospitalist MIPS Heart Failure (Exclusion) Patient has history of Heart Transplant or Left Ventricular Assistive Device?: No IF YES, STOP HERE Heart Failure (Qualifier) Patient has current or prior documentation of LVEF less than or equal to 40%, or mod/servere depressed LVSF?: Yes IF NO, STOP HERE If Yes, Heart Failure (Qualifier) Patient was prescribed or already taking an Angiotensin-Converting Enzyme (BRANDY) Inhibitor, or Antiotensin Receptor Kelin (ARB): Yes Patient was prescribed or already taking bisoprolol, carvedilol, or sustained release metoprolol succinate: Yes
== END 2024-07-09 17:15 | disposition home or self-care (01) | DRG 291 ==
LOC: ANHED 16:23 → ANH3MED 17:30
PROVIDERS: Nurse Practitioner Family; Admitting Provider Internal Medicine; Emergency Provider Emergency Medicine; PCP Family Medicine; Visit Provider Internal Medicine
DX: I13.0 Hypertensive heart and chronic kidney disease with heart failure and stage 1 through stage 4 chronic kidney disease, or unspecified chronic kidney disease (principal); I50.23 Acute on chronic systolic (congestive) heart failure; N17.9 Acute kidney failure, unspecified; N18.9 Chronic kidney disease, unspecified; I25.10 Atherosclerotic heart disease of native coronary artery without angina pectoris; E03.9 Hypothyroidism, unspecified; E78.5 Hyperlipidemia, unspecified; K58.9 Irritable bowel syndrome, unspecified; K21.9 Gastro-esophageal reflux disease without esophagitis; J30.9 Allergic rhinitis, unspecified; M32.8 Other forms of systemic lupus erythematosus; M19.90 Unspecified osteoarthritis, unspecified site; M79.7 Fibromyalgia; M54.9 Dorsalgia, unspecified; G89.29 Other chronic pain; F32.A Depression, unspecified; F41.9 Anxiety disorder, unspecified; Z20.822 Contact with and (suspected) exposure to COVID-19; I25.2 Old myocardial infarction; Z79.02 Long term (current) use of antithrombotics/antiplatelets; Z95.1 Presence of aortocoronary bypass graft; Z87.891 Personal history of nicotine dependence; Z95.5 Presence of coronary angioplasty implant and graft; Z79.82 Long term (current) use of aspirin
CPT/HCPCS: 36415; 71046; 71275; 80053; 83735; 83880; 85025; 85380; 87637; 93005; 93970; 94640; 96374; 96376; 99285; A9270; C8929; G0378; J1940; J2405; Q9957; Q9967

== ENCOUNTER 2024-09-27 10:00 | Outpatient (RCR) | payer MEDICARE, OTHER, SELFPAY ==
[2024-06-01 11:44] VITALS: BP 140/70; PULSE 60; RESP 16; O2SAT 98
[2024-06-01 12:25] VITALS: PULSE 60
== END 2024-09-27 11:06 | disposition home or self-care (01) ==
LOC: ANHCPREHAB 10:00
PROVIDERS: PCP Family Medicine; Visit Provider Internal Medicine
DX: Z95.1 Presence of aortocoronary bypass graft (principal)
CPT/HCPCS: 93798